=== PATIENT | female | born 1930 | race Caucasian/White ===

== ENCOUNTER 2016-10-20 14:05 | Inpatient (IN) | payer MEDICARE, OTHER ==
[~2016-10-20] VITALS: Ht 167.6 cm; Wt 60.2 kg
[2016-10-20] MEDS ORDERED: FUROSEMIDE 40 MG/4 ML VIAL (J1940) As Ordered ONE (14:18)
[2016-10-20] MEDS ORDERED: IPRATROPIUM 0.5MG/ALBUTEROL 2.5MG INH SOL UD 3ML (DUONEB)(J7620) As Ordered ONE (14:25)
[2016-10-20] MEDS ORDERED: ALBUTEROL SULFATE 2.5 MG/0.5 ML INH NEB SOLN As Ordered ONE (14:25)
--- NOTE | 2016-10-20 14:41 | REP ---
Clinical: Shortness of breath. Findings: Cardiomegaly. Diffuse increased interstitial markings with indistinct pulmonary vasculature and cephalization suggests pulmonary venous congestion and interstitial edema. No obvious effusion. No pneumothorax. Mediastinum and cardiac silhouette are within normal limits for portable technique. Skeletal structures demonstrate age-related degenerative changes. Impression: Findings suggest pulmonary venous congestion and interstitial edema. Signed by Darwin Hanson MD 10/20/2016 02:33 P
[2016-10-20 14:49] LABS: BASO % 0.4 % (0.0-1.0); EOS % 0.2 % (0.0-3.0); LARGE UNSTAINED CELL # 0.1 K/mm3 (0.0-0.4); LARGE UNSTAINED CELL % 1.3 % (0.0-4.0); LYMPH # 1.5 K/mm3 (1.5-4.5); LYMPH % 15.5 % (24.0-44.0); MEAN CORPUSCULAR HEMOGLOBIN 28.5 pg (27.0-33.0); MEAN CORPUSCULAR HGB CONC 31.1 g/dl (32.0-36.5); MEAN CORPUSCULAR VOLUME 91.7 fl (80.0-96.0); MONO # 0.3 K/mm3 (0.0-0.8); MONO % 3.1 % (0.0-5.0); NEUTROPHILS # 7.9 K/mm3 (1.8-7.7); NEUTROPHILS % 79.6 % (36.0-66.0); PLATELET COUNT, AUTOMATED 298 k/mm3 (150-450); WHITE BLOOD COUNT 9.9 K/mm3 (4.0-10.0)
[2016-10-20 15:23] LABS: CALCIUM LEVEL 8.3 MG/DL (8.8-10.2); CREATININE FOR GFR 1.76 MG/DL (0.55-1.02); GLOMERULAR FILTRATION RATE 29.1 (>32)
[2016-10-20 15:27] LABS: POTASSIUM SERUM 5.3 MEQ/L (3.5-5.1)
[2016-10-20] MEDS ORDERED: HumuLIN R (REGULAR) INSULIN (NovoLIN R) **100U/ML** PER UNIT As Ordered ONE (15:34)
[2016-10-20] MEDS ORDERED: METO50TA2 PO (16:14)
[2016-10-20] MEDS ORDERED: METF750T PO (16:14)
[2016-10-20] MEDS ORDERED: GLIP5TAB8 PO (16:14)
[2016-10-20] MEDS ORDERED: ZOCO40TA PO (16:14)
[2016-10-20] MEDS ORDERED: ONGL10TA3 PO (16:14)
[2016-10-20] MEDS ORDERED: ASPI325T PO (16:14)
[2016-10-20] MEDS ORDERED: ONDANSETRON 4MG/2ML VIAL (J2405) IV PRN (17:15)
[2016-10-20] MEDS ORDERED: IPRATROPIUM 0.5MG/ALBUTEROL 2.5MG INH SOL UD 3ML (DUONEB)(J7620) NEB PRN (17:15)
[2016-10-20] MEDS ORDERED: DEXTROSE 50% 50 ML SYRINGE IV PRN (17:15)
[2016-10-20] MEDS ORDERED: GLUCAGON FOR INJ 1 MG VIAL (J1610) SC PRN (17:15)
[2016-10-20] MEDS ORDERED: methylPREDNISolone INJ 125 MG/2 ML VIAL (J2930) IV SCH (17:15)
[2016-10-20] MEDS ORDERED: ACETAMINOPHEN TAB 650MG DOSE (2X325MG) PO PRN (17:15)
[2016-10-20] MEDS ORDERED: GLUCOSE 4 GM CHEW TABLET PO PRN (17:15)
[2016-10-20] MEDS: HumaLOG INSULIN (NovoLOG) PER UNIT SC SCH ×2 (17:30→21:08)
--- NOTE | 2016-10-20 18:13 | REP ---
Clinical: Acute trauma with chronic medical renal disease. Technique: Mehta scale evaluation of the kidneys using curved array transducer. Findings: The kidneys are essentially normal in contour size and echogenicity and reniform shape without hydronephrosis, nephrolithiasis, cystic or renal mass lesion. Right kidney measures 10.0 x 4.7 x 4.8 cm. Left kidney measures 8.8 x 3.5 x 3.5 cm. Bladder is incompletely distended and grossly normal by current evaluation. Small left pleural effusion noted. Impression: Chronic medical Renal disease. Small left pleural effusion. No renal trauma/injury appreciated. Signed by Darwin Hanson MD 10/20/2016 06:04 P
[2016-10-20 19:15] LABS: CALCIUM LEVEL 8.1 MG/DL (8.8-10.2); CREATININE FOR GFR 1.94 MG/DL (0.55-1.02); POTASSIUM SERUM 4.6 MEQ/L (3.5-5.1)
[2016-10-20 19:26] LABS: ALBUMIN 3.3 GM/DL (3.2-5.2); ALBUMIN/GLOBULIN RATIO 0.94 (1.00-1.93); ALKALINE PHOSPHATASE 157 U/L (45-117); ALT/SGPT 43 U/L (12-78); AST/SGOT 33 U/L (15-37); BILIRUBIN,DIRECT < 0.1 MG/DL (0.0-0.2); BILIRUBIN,TOTAL 0.3 MG/DL (0.2-1.0); TOTAL PROTEIN 6.8 GM/DL (6.4-8.2)
[2016-10-20 20:00] VITALS: BP 166/78
--- NOTE | 2016-10-20 20:18 | EDDOCDS ---
Nurse's Notes [facility] Name: Claudia Miranda Age: 86 yrs Sex: Female : 1930 Arrival Date: 10/20/2016 Time: 14:05 Bed 1 Private MD: Diagnosis: Hyperglycemia, unspecified;Acute combined systolic (congestive) and diastolic (congestive) heart failure;Hypoxemia Presentation: 10/20 14:06 Presenting complaint: EMS states: increasing SOB over past week 84% on RA, given duo jjr neb followed by albuterol, visiting from [place], FSBS 432. Adult Sepsis Screening: The patient does not have new or worsening altered mentation. Patient has a respiratory rate of greater than or equal to 22 (1 point). Systolic blood pressure is greater than 100. Patient has a qSOFA score of 1- Negative Sepsis Screen. Suicide/Homicide risk assessment- the patient denies having any suicidal and/or homicidal ideations and does not present with any other emotional, behavioral or mental health complaints. 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 Transition of care: patient was not received from another setting of care. 14:06 Acuity: FELIX Level 3 jjr 14:06 Method Of Arrival: Ambulance jjr 14:15 Acuity level changed due to complexity of care. jjr 14:15 Acuity: FELIX Level 2 jjr Triage Assessment: 14:13 General: Appears ill, Behavior is appropriate for age. Pain: Location: right posterior jjr aspect of neck. Respiratory: Onset: The symptoms/episode began/occurred gradually, Airway is patent Respiratory effort is even, labored, with retractions, shallow, Respiratory pattern is tachypnea. Historical: - Allergies: no known allergies; - Home Meds: 1. simvastatin 40 mg Oral tab 1 tab once daily 2. glipizide 5 mg Oral tab 1 tab 2 times per day 3. metoprolol tartrate 50 mg Oral tab 1 tab 2 times per day 4. Onglyza 2.5 mg oral tab 1 tab once daily 5. metformin 750 mg oral Tb24 bid - PMHx: Diabetes - NIDDM: controlled; Hypertension; Hypercholesterolemia; - PSHx: none; - Social history: Smoking status: Patient states former smoker of tobacco. No barriers to communication noted, The patient speaks fluent Slovak. - Family history: Not pertinent. - : The pt / caregiver states he / she is not on anticoagulants. Home medication list is obtained from pill bottles. - Exposure Risk Screening:: None identified. Screenin:37 Screening information is obtained from the patient. Fall risk: At risk due to age, The ck1 following interventions are performed due to a positive Fall Risk Screen: Fall Risk is added to Special Handling on the patient Summary Screen. A Fall Risk Bracelet was applied to the patient. Side Rails are placed in the up position. A Call Millan is given with instruction to call for help when getting out of bed. Fall Alert bracelet is placed on the patient. Assistance ADL's: requires no assistance with activities of daily living. Abuse/DV Screen: The patient / caregiver reports he/she is: not in a situation that causes fear, pain or injury. Nutritional screening: No deficits noted. Advance Directives: Currently, there is no health care proxy. home support is adequate. Assessment: 14:37 General: Appears distressed, Behavior is appropriate for age, cooperative. Pain: Denies ck1 pain. Neurological: Level of Consciousness is awake, alert, obeys commands, Oriented to person, place, time. Cardiovascular: Rhythm is sinus tachycardia Chest pain is denied. Respiratory: Respiratory effort is labored, Respiratory pattern is symmetrical, Breath sounds with crackles bilaterally. GI: No deficits noted. Derm: Skin is pink, warm & dry. Musculoskeletal: No deficits noted. 15:40 General: Appears in no apparent distress, Behavior is appropriate for age, cooperative. ck1 Pain: Denies pain. Neurological: Level of Consciousness is awake, alert, obeys commands, Oriented to person, place, time. Cardiovascular: Rhythm is sinus rhythm Chest pain is denied. Respiratory: Respiratory effort is labored, Respiratory pattern is regular, symmetrical. GI: No deficits noted. Derm: Skin is pink, warm & dry. Musculoskeletal: Circulation, motion, and sensation intact Range of motion intact in all extremities. 16:40 Reassessment: Patient appears in no apparent distress at this time. ck1 17:40 General: Appears in no apparent distress, comfortable, Behavior is appropriate for age, ck1 cooperative. Pain: Denies pain. Neurological: Level of Consciousness is awake, alert, obeys commands, Oriented to person, place, time. Cardiovascular: Rhythm is sinus rhythm. Respiratory: Respiratory effort is unlabored, Respiratory pattern is regular, symmetrical. GI: No deficits noted. Derm: Skin is pink, warm & dry. 18:28 Reassessment: Patient appears in no apparent distress at this time. Patient denies pain ck1 at this time. Patient states feeling better. Patient states symptoms have improved. 19:10 General: Appears in no apparent distress, comfortable, to be sleeping. Behavior is nn1 appropriate for age, cooperative. Respiratory: Airway is patent Respiratory effort is even, unlabored, Respiratory pattern is regular, symmetrical. Derm: Skin is pink, warm & dry. 20:04 General: Appears in no apparent distress, comfortable, Behavior is appropriate for age, nn1 cooperative. Pain: Denies pain. Neurological: Level of Consciousness is awake, alert, obeys commands, Oriented to person, place, time. Respiratory: Airway is patent Respiratory effort is even, unlabored, Respiratory pattern is regular. Derm: Skin is pink, warm & dry. 20:05 Respiratory: Breath sounds with crackles bilaterally. nn1 Vital Signs: 14:10 BP 221 / 108; Pulse 96; Resp 26; Temp 97.4; Pulse Ox 83% on R/A; Weight 64.86 kg (M); sew Height 5 ft. 6 in. (167.64 cm); Pain 0/10; 14:11 BP 221 / 108 (auto/); ck1 14:11 Pulse 101 MON; Pulse Ox 85% ; ck1 14:14 Resp 36; jjr 14:35 BP 204 / 100 (auto/); ck1 14:36 Pulse 105 MON; Pulse Ox 96% ; ck1 14:45 BP 181 / 84 (auto/); ck1 14:45 Pulse 93 MON; Pulse Ox 93% ; ck1 15:15 BP 180 / 88 (auto/); ck1 15:16 Pulse 93 MON; Pulse Ox 90% ; ck1 15:34 BP 223 / 99 (auto/); ck1 15:34 Pulse 93 MON; Pulse Ox 90% ; ck1 15:36 BP 148 / 70 (auto/); ck1 15:36 Pulse 93 MON; Pulse Ox 90% ; ck1 15:45 BP 155 / 72 (auto/); ck1 15:45 Pulse 93 MON; Pulse Ox 93% ; ck1 16:00 BP 156 / 70 (auto/); ck1 16:01 Pulse 90 MON; Pulse Ox 92% ; ck1 16:15 BP 153 / 64 (auto/); ck1 16:16 Pulse 89 MON; Pulse Ox 91% ; ck1 16:30 BP 142 / 64 (auto/); ck1 16:31 Pulse 88 MON; Pulse Ox 93% ; ck1 16:45 BP 142 / 93 (auto/); ck1 16:46 Pulse 89 MON; Pulse Ox 96% ; ck1 17:00 BP 154 / 72 (auto/); ck1 17:01 Pulse 85 MON; Pulse Ox 94% ; ck1 17:15 BP 134 / 74 (auto/); ck1 17:16 Pulse 86 MON; Pulse Ox 95% ; ck1 17:30 BP 143 / 71 (auto/); ck1 17:42 Pulse 89 MON; Pulse Ox 94% ; ck1 17:45 BP 157 / 68 (auto/); ck1 17:46 Pulse 87 MON; Pulse Ox 95% ; ck1 18:00 BP 146 / 78 (auto/); ck1 18:01 Pulse 85 MON; Pulse Ox 95% ; ck1 18:15 BP 160 / 85 (auto/); ck1 18:22 Pulse 90 MON; Pulse Ox 97% ; ck1 20:05 BP 145 / 81; Pulse 89; Resp 18; Temp 98.5(TE); Pulse Ox 95% on 4 lpm [place]; Pain 0/10; nn1 14:10 Body Mass Index 23.08 (64.86 kg, 167.64 cm) [facility] [place]: 14:10 Log In Time N/A - ambulance arrival. sew ED Course: 14:06 Patient visited by Judy Dixon, Brake Coupler Dinkey. deg 14:06 Senait Lombardo,RN is Primary Nurse. deg 14:06 Patient moved to Waiting deg 14:06 Patient moved to 1 deg 14:08 [facility]. ke 14:08 Triage Initiated jjr 14:09 Patient visited by Mike Meneses FNP. ke 14:09 Patient visited by Mike Meneses FNP. ke 14:13 Patient visited by Macy Leiva. sew 14:13 Pt greeted and oriented to ED. Patient advised of names of staff involved in care, sew location of call millan, wait times and NPO status. Accompanied by Family Member, Patient has correct armband on for positive identification. Placed in gown. Bed in low position. Call light in reach. Side rails up X2. Verbal reassurance given. Head of bed elevated. Assisted with dressing. Repositioned patient. site monitor on. Pulse ox on. NIBP on. 14:24 Patient visited by Nahum Feliciano. jml1 14:24 EKG done. (by ED staff). Reviewed by Mike MONTAGUE. jml1 14:28 B-Type Natiuretic Peptide Sent. ck1 14:28 Basic Metabolic Profile Sent. ck1 14:28 CBC with Diff Sent. ck1 14:28 Cardiac Injury Profile Sent. ck1 14:28 Troponin Sent. ck1 14:37 Patient visited by Senait Lombardo,ORAL. ck1 14:37 The patient / caregiver is instructed regarding the plan of care and ED course. ck1 14:37 BLOOD CULTURES Sent. ck1 14:37 -Blood Culture Sent. ck1 14:37 Inserted saline lock: 20 gauge in left forearm and blood collected. The patient ck1 tolerated the procedure well. 15:06 Patient visited by Mike Meneses FNP. ke 15:19 Chest, 1 View Returned. EDMS 15:27 Patient visited by Senait Lombardo,ORAL. ck1 15:28 No procedures done that require assistance. ck1 15:40 Patient visited by Senait Lombardo,ORAL. ck1 15:41 Patient visited by Senait Lombardo,ORAL. ck1 15:43 Patient name changed from Claudia\May\\S\Brege\S\ to Claudia\May\Genna\S\Brege. EDMS 15:46 [facility] Payment Agreement was scanned into [employer] and attached to record. gb 15:56 Surjit Biswas is Hospitalizing Provider. ke 17:27 Patient moved to Ultrasound am10 17:47 Patient moved to 1 am10 18:14 Patient visited by Mariajose Mason PCA. rs6 18:14 Diet: Patient given regular meal. Tolerated well. rs6 18:39 RENAL US Returned. EDMS 18:51 Primary Nurse role handed off by Senait Lombardo,RN ck1 20:05 O2 via nasal cannula \T\ 4L/min. nn1 Administered Medications: 14:23 Drug: Furosemide 40 mg [furosemide 10 mg/mL injection solution (4 mL)] Route: IVP; jjr Site: left forearm; 14:32 Drug: Albuterol 2.5 mg [albuterol sulfate 2.5 mg/0.5 mL solution for nebulization (0.5 js11 mL)] Route: Nebulizer; 14:32 Drug: Albuterol-Ipratropium 3 ml [ipratropium-albuterol 0.5 mg-3 mg(2.5 mg base)/3 mL js11 nebulization soln (3 mL)] Route: Inhalation; 15:40 Drug: Insulin Regular Human 10 units [insulin regular human 100 unit/mL injection ck1 solution (0.1 mL)] {Co-Signature: ttterry (Vale Pop RN).} Route: IVP; Site: left forearm; Point of Care Testing: Blood Glucose: 16:33 Blood Glucose: 344 mg/dL; ck1 17:40 Blood Glucose: 296 mg/dL; ck1 Ranges: RT: 14:32 Initial Med Neb Given as ordered Patient was instructed and evaluated on procedure js11 Patient tolerated procedure well without adverse effect. O2 via nasal cannula \T\ 4L/min. Respiratory: Breath sounds with rhonchi bilaterally. Order Results: Lab Order: B-Type Natiuretic Peptide; SPEC'M 10/20/16 14:25 Test: BRAIN NATRIURETIC PEPTIDE; Value: 773; Range: <100; Abnormal: Above high normal; Units: PG/ML; Status: F Lab Order: Basic Metabolic Profile; SPEC'M 10/20/16 14:25 Test: GLUCOSE, FASTING; Value: 460; Range: 83-110; Abnormal: Above upper panic limits; Units: MG/DL; Status: F Test: BLOOD UREA NITROGEN; Value: 29; Range: 7-18; Abnormal: Above high normal; Units: MG/DL; Status: F Test: CREATININE FOR GFR; Value: 1.76; Range: 0.55-1.02; Abnormal: Above high normal; Units: MG/DL; Status: F Test: GLOMERULAR FILTRATION RATE; Value: 29.1; Range: >32; Abnormal: Below low normal; Status: F Test: SODIUM LEVEL; Value: 134; Range: 136-145; Abnormal: Below low normal; Units: MEQ/L; Status: F Test: POTASSIUM SERUM; Value: 5.3; Range: 3.5-5.1; Abnormal: Above high normal; Units: MEQ/L; Status: F Test: CHLORIDE LEVEL; Value: 99; Range: 98-107; Units: MEQ/L; Status: F Test: CARBON DIOXIDE LEVEL; Value: 25; Range: 21-32; Units: MEQ/L; Status: F Test: ANION GAP; Value: 10; Range: 8-16; Units: MEQ/L; Status: F Test: CALCIUM LEVEL; Value: 8.3; Range: 8.8-10.2; Abnormal: Below low normal; Units: MG/DL; Status: F Test Note: ; Units are mL/min/1.73 m2 Chronic Kidney Disease Staging per NKF: Stage I & II GFR >=60 Normal to Mildly Decreased Stage III GFR 30-59 Moderately Decreased Stage IV GFR 15-29 Severely Decreased Stage V GFR <15 Very Little GFR Left ESRD GFR <15 on HEARING THERAPIST Lab Order: CBC with Diff; SPEC'M 10/20/16 14:25 Test: WHITE BLOOD COUNT; Value: 9.9; Range: 4.0-10.0; Units: K/mm3; Status: F Test: RED BLOOD COUNT; Value: 4.15; Range: 4.00-5.40; Units: M/mm3; Status: F Test: HEMOGLOBIN; Value: 11.8; Range: 12.0-16.0; Abnormal: Below low normal; Units: g/dl; Status: F Test: HEMATOCRIT; Value: 38.0; Range: 36.0-47.0; Units: %; Status: F Test: MEAN CORPUSCULAR VOLUME; Value: 91.7; Range: 80.0-96.0; Units: fl; Status: F Test: MEAN CORPUSCULAR HEMOGLOBIN; Value: 28.5; Range: 27.0-33.0; Units: pg; Status: F Test: MEAN CORPUSCULAR HGB CONC; Value: 31.1; Range: 32.0-36.5; Abnormal: Below low normal; Units: g/dl; Status: F Test: RED CELL DISTRIBUTION WIDTH; Value: 13.0; Range: 11.5-14.5; Units: %; Status: F Test: PLATELET COUNT, AUTOMATED; Value: 298; Range: 150-450; Units: k/mm3; Status: F Test: NEUTROPHILS %; Value: 79.6; Range: 36.0-66.0; Abnormal: Above high normal; Units: %; Status: F Test: LYMPH %; Value: 15.5; Range: 24.0-44.0; Abnormal: Below low normal; Units: %; Status: F Test: MONO %; Value: 3.1; Range: 0.0-5.0; Units: %; Status: F Test: EOS %; Value: 0.2; Range: 0.0-3.0; Units: %; Status: F Test: BASO %; Value: 0.4; Range: 0.0-1.0; Units: %; Status: F Test: LARGE UNSTAINED CELL %; Value: 1.3; Range: 0.0-4.0; Units: %; Status: F Test: NEUTROPHILS #; Value: 7.9; Range: 1.8-7.7; Abnormal: Above high normal; Units: K/mm3; Status: F Test: LYMPH #; Value: 1.5; Range: 1.5-4.5; Units: K/mm3; Status: F Test: MONO #; Value: 0.3; Range: 0.0-0.8; Units: K/mm3; Status: F Test: EOS #; Value: 0.0; Range: 0.0-0.50; Units: K/mm3; Status: F Test: BASO #; Value: 0.0; Range: 0.0-0.2; Units: K/mm3; Status: F Test: LARGE UNSTAINED CELL #; Value: 0.1; Range: 0.0-0.4; Units: K/mm3; Status: F Lab Order: Cardiac Injury Profile; SPEC'M 10/20/16 14:25 Test: CPK CREATINE PHOSPHOKINASE; Value: 38; Range: 26-192; Units: U/L; Status: F Test: CK-MB VALUE MASS; Value: 1.3; Range: 0.0-3.6; Units: NG/ML; Status: F Test: MB/CK RELATIVE INDEX; Value: 3.42; Range: < OR =4; Status: F Test Note: ; DIAGNOSIS CRITERIA MMB ng/ml Relative Index (RI) NON-AMI < or = 5 N/A MEHTA ZONE > 5 < or = 4 AMI > 5 > 4 Lab Order: Troponin; [facility] 10/20/16 14:25 Test: TROPONIN I; Value: 0.05; Range: < 0.10; Units: NG/ML; Status: F Test Note: ; Troponin I Reference Interval for Siemens RESAAS LOCI: 99th Percentile= 0.00-0.045 ng/ml Risk Stratification: <= 0.10 ng/ml Decreased Risk for Adverse Clinical Events. 0.10-1.50 ng/ml Increased Risk for Adverse Clinical Events. Evaluation of additional criterion and/or repeat testing in 2-6 hours is suggested to rule out myocardial damage. >= 1.50 ng/ml Indicative of Myocardial Injury. Lab Order: Fingerstick Blood Sugar; [facility] 10/20/16 16:31 Test: BEDSIDE GLUCOSE; Value: 344; Range: 83-110; Abnormal: Above high normal; Units: MG/DL; Status: F Lab Order: LACTIC ACID LEVEL, LACTATE; [facility] 10/20/16 18:44 Test: LACTIC ACID LEVEL, LACTATE; Value: 4.9; Range: 0.4-2.0; Abnormal: Above upper panic limits; Units: MMOL/L; Status: F Lab Order: C REACTIVE PROTEIN QUANTITATIV; [facility] 10/20/16 18:44 Test: C REACTIVE PROTEIN QUANTITATIV; Value: 8.79; Range: 0.00-0.30; Abnormal: Above high normal; Units: MG/DL; Status: F Lab Order: ERYTHROCYTE SEDIMENTATION RATE; [facility] 10/20/16 18:44 Test: ERYTHROCYTE SEDIMENTATION RATE; Value: 42; Range: 0-42; Units: mm/hr; Status: F Lab Order: MAGNESIUM LEVEL; [facility] 10/20/16 18:44 Test: MAGNESIUM LEVEL; Value: 2.0; Range: 1.8-2.4; Units: MG/DL; Status: F Lab Order: THYROID STIMULATING HORMONE; [facility] 10/20/16 18:44 Test: THYROID STIMULATING HORMONE; Value: 0.317; Range: 0.358-3.740; Abnormal: Below low normal; Units: uIU/ML; Status: F Lab Order: BASIC METABOLIC PROFILE; [facility] 10/20/16 18:44 Test: GLUCOSE, FASTING; Value: 335; Range: 83-110; Abnormal: Above high normal; Units: MG/DL; Status: F Test: BLOOD UREA NITROGEN; Value: 32; Range: 7-18; Abnormal: Above high normal; Units: MG/DL; Status: F Test: CREATININE FOR GFR; Value: 1.94; Range: 0.55-1.02; Abnormal: Above high normal; Units: MG/DL; Status: F Test: GLOMERULAR FILTRATION RATE; Value: 26.0; Range: >32; Abnormal: Below low normal; Status: F Test: SODIUM LEVEL; Value: 137; Range: 136-145; Units: MEQ/L; Status: F Test: POTASSIUM SERUM; Value: 4.6; Range: 3.5-5.1; Units: MEQ/L; Status: F Test: CHLORIDE LEVEL; Value: 99; Range: 98-107; Units: MEQ/L; Status: F Test: CARBON DIOXIDE LEVEL; Value: 24; Range: 21-32; Units: MEQ/L; Status: F Test: ANION GAP; Value: 14; Range: 8-16; Units: MEQ/L; Status: F Test: CALCIUM LEVEL; Value: 8.1; Range: 8.8-10.2; Abnormal: Below low normal; Units: MG/DL; Status: F Test Note: ; Units are mL/min/1.73 m2 Chronic Kidney Disease Staging per NKF: Stage I & II GFR >=60 Normal to Mildly Decreased Stage III GFR 30-59 Moderately Decreased Stage IV GFR 15-29 Severely Decreased Stage V GFR <15 Very Little GFR Left ESRD GFR <15 on HEARING THERAPIST Lab Order: HEMOGLOBIN A1C; [facility] 10/20/16 18:44 Test: HEMOGLOBIN A1c; Value: 6.5; Range: 4.5-6.2; Abnormal: Above high normal; Units: %; Status: F Test: ESTIMATED AVERAGE GLUCOSE; Value: 140; Range: 60-110; Abnormal: Above high normal; Units: MG/DL; Status: F Lab Order: CARDIAC MARKER PANEL; [facility] 10/20/16 18:44 Test: CPK CREATINE PHOSPHOKINASE; Value: 44; Range: 26-192; Units: U/L; Status: F Test: CK-MB VALUE MASS; Value: 1.7; Range: 0.0-3.6; Units: NG/ML; Status: F Test: MB/CK RELATIVE INDEX; Value: 3.86; Range: < OR =4; Status: F Test: TROPONIN I; Value: 0.06; Range: < 0.10; Units: NG/ML; Status: F Test Note: ; DIAGNOSIS CRITERIA MMB ng/ml Relative Index (RI) NON-AMI < or = 5 N/A MEHTA ZONE > 5 < or = 4 AMI > 5 > 4 Lab Order: Fingerstick Blood Sugar; [facility] 10/20/16 17:45 Test: BEDSIDE GLUCOSE; Value: 296; Range: 83-110; Abnormal: Above high normal; Units: MG/DL; Status: F Lab Order: LIVER PROFILE; [facility] 10/20/16 18:44 Test: AST/SGOT; Value: 33; Range: 15-37; Units: U/L; Status: F Test: ALT/SGPT; Value: 43; Range: 12-78; Units: U/L; Status: F Test: ALKALINE PHOSPHATASE; Value: 157; Range: 45-117; Abnormal: Above high normal; Units: U/L; Status: F Test: BILIRUBIN,TOTAL; Value: 0.3; Range: 0.2-1.0; Units: MG/DL; Status: F Test: BILIRUBIN,DIRECT; Value: < 0.1; Range: 0.0-0.2; Units: MG/DL; Status: F Test: TOTAL PROTEIN; Value: 6.8; Range: 6.4-8.2; Units: GM/DL; Status: F Test: ALBUMIN; Value: 3.3; Range: 3.2-5.2; Units: GM/DL; Status: F Test: ALBUMIN/GLOBULIN RATIO; Value: 0.94; Range: 1.00-1.93; Abnormal: Below low normal; Status: F Radiology Order: Chest, 1 View Test: Chest, 1 View REASON FOR EXAMINATION: Shortness of Breath; Clinical: Shortness of breath.; ; Findings:; Cardiomegaly. Diffuse increased interstitial markings with indistinct pulmonary; vasculature and cephalization suggests pulmonary venous congestion and; interstitial edema. No obvious effusion. No pneumothorax. Mediastinum and; cardiac silhouette are within normal limits for portable technique. Skeletal; structures demonstrate age-related degenerative changes.; ; Impression:; Findings suggest pulmonary venous congestion and interstitial edema.; ; ; Signed by; Darwin Hanson MD 10/20/2016 02:33 P; Radiology Order: RENAL US Test: RENAL US REASON FOR EXAMINATION: acute kidney injury, chronic kidney disease? ; Clinical: Acute trauma with chronic medical renal disease.; ; Technique: Mehta scale evaluation of the kidneys using curved array transducer.; ; Findings:; ; The kidneys are essentially normal in contour size and echogenicity and reniform; shape without hydronephrosis, nephrolithiasis, cystic or renal mass lesion.; Right kidney measures 10.0 x 4.7 x 4.8 cm. Left kidney measures 8.8 x 3.5 x 3.5; cm. Bladder is incompletely distended and grossly normal by current evaluation.; Small left pleural effusion noted.; ; ; ; Impression:; ; Chronic medical Renal disease.; ; Small left pleural effusion.; ; No renal trauma/injury appreciated.; ; ; Signed by; Darwin Hanson MD 10/20/2016 06:04 P; Outcome: 15:57 Decision to Hospitalize by Provider. ke 20:04 Discharge Assessment: Patient awake, alert and oriented x 3. No cognitive and/or nn1 functional deficits noted. Patient verbalized understanding of disposition instructions. 20:04 Discharge Assessment: patient administered narcotics - no. The following High Risk nn1 Discharge criteria are identified: None. Admitted to PCU accompanied by nurse, accompanied by tech, via stretcher, with oxygen, on monitor, with chart. Condition: stable. No special radiology studies were completed. Admission hand-off: Report Faxed Fax receipt verified by ORAL Nix . Property :Personal belongings accompany Pt. 20:18 Patient left the ED. nn1 Signatures: Dispatcher [employer] EDJudy Redd, Brake Coupler Dinkey Unit deg Romelia Morfin, Reg Reg Mike Zaragoza, TRANSPORT PILOT TRANSPORT PILOT Senait Brandon RN RN ck1 Fanny Graham am10 Samantha Guillen RN RN Yon Morton js11 Nahum Feliciano jml1 Macy Leiva, Mariajose, MILK DRIER MILK DRIER rs6 Ninoska Porter,RN RN nn1 Vale Pop RN ttb MTDD
--- NOTE | 2016-10-20 20:18 | EDDOCDS ---
Physician Documentation [facility] Name: Claudia Miranda Age: 86 yrs Sex: Female : 1930 Arrival Date: 10/20/2016 Time: 14:05 Bed 1 Private MD: Disposition: 10/20/16 15:57 Hospitalization ordered by Surjit Biswas for Inpatient Admission. Preliminary diagnosis are Hyperglycemia, unspecified, Acute combined systolic (congestive) and diastolic (congestive) heart failure, Hypoxemia. - Bed requested for PCU. - Status is Inpatient Admission. nn1 - Condition is Stable. - Problem is an ongoing problem. - Symptoms are unchanged. Historical: - Allergies: no known allergies; - Home Meds: 1. simvastatin 40 mg Oral tab 1 tab once daily 2. glipizide 5 mg Oral tab 1 tab 2 times per day 3. metoprolol tartrate 50 mg Oral tab 1 tab 2 times per day 4. Onglyza 2.5 mg oral tab 1 tab once daily 5. metformin 750 mg oral Tb24 bid - PMHx: Diabetes - NIDDM: controlled; Hypertension; Hypercholesterolemia; - PSHx: none; - Social history: Smoking status: Patient states former smoker of tobacco. No barriers to communication noted, The patient speaks fluent [place]. - Family history: Not pertinent. - : The pt / caregiver states he / she is not on anticoagulants. Home medication list is obtained from pill bottles. - Exposure Risk Screening:: None identified. Vital Signs: 10/20 14:10 BP 221 / 108; Pulse 96; Resp 26; Temp 97.4; Pulse Ox 83% on R/A; Weight 64.86 kg / sew 142.99 lbs (M); Height 5 ft. 6 in. (167.64 cm); Pain 0/10; 14:11 BP 221 / 108 (auto/); ck1 14:11 Pulse 101 MON; Pulse Ox 85% ; ck1 14:14 Resp 36; jjr 14:35 BP 204 / 100 (auto/); ck1 14:36 Pulse 105 MON; Pulse Ox 96% ; ck1 14:45 BP 181 / 84 (auto/); ck1 14:45 Pulse 93 MON; Pulse Ox 93% ; ck1 15:15 BP 180 / 88 (auto/); ck1 15:16 Pulse 93 MON; Pulse Ox 90% ; ck1 15:34 BP 223 / 99 (auto/); ck1 15:34 Pulse 93 MON; Pulse Ox 90% ; ck1 15:36 BP 148 / 70 (auto/); ck1 15:36 Pulse 93 MON; Pulse Ox 90% ; ck1 15:45 BP 155 / 72 (auto/); ck1 15:45 Pulse 93 MON; Pulse Ox 93% ; ck1 16:00 BP 156 / 70 (auto/); ck1 16:01 Pulse 90 MON; Pulse Ox 92% ; ck1 16:15 BP 153 / 64 (auto/); ck1 16:16 Pulse 89 MON; Pulse Ox 91% ; ck1 16:30 BP 142 / 64 (auto/); ck1 16:31 Pulse 88 MON; Pulse Ox 93% ; ck1 16:45 BP 142 / 93 (auto/); ck1 16:46 Pulse 89 MON; Pulse Ox 96% ; ck1 17:00 BP 154 / 72 (auto/); ck1 17:01 Pulse 85 MON; Pulse Ox 94% ; ck1 17:15 BP 134 / 74 (auto/); ck1 17:16 Pulse 86 MON; Pulse Ox 95% ; ck1 17:30 BP 143 / 71 (auto/); ck1 17:42 Pulse 89 MON; Pulse Ox 94% ; ck1 17:45 BP 157 / 68 (auto/); ck1 17:46 Pulse 87 MON; Pulse Ox 95% ; ck1 18:00 BP 146 / 78 (auto/); ck1 18:01 Pulse 85 MON; Pulse Ox 95% ; ck1 18:15 BP 160 / 85 (auto/); ck1 18:22 Pulse 90 MON; Pulse Ox 97% ; ck1 20:05 BP 145 / 81; Pulse 89; Resp 18; Temp 98.5(TE); Pulse Ox 95% on 4 lpm NC; Pain 0/10; nn1 14:10 Body Mass Index 23.08 (64.86 kg, 167.64 cm) sew MDM: 14:07 -Blood Culture (Adults Only), peripheral from different site, or from device/port/PICC sd1 etc. if present ordered. 14:07 Physical Laboratory Assistant/Pulse Ox/q 15 min VS ordered. sd1 14:07 IV Saline Lock ordered. sd1 14:07 Oxygen at 4L/Min NC or Home dosage ordered. sd1 14:07 Rhythm Strip to chart ordered. sd1 14:08 -Blood Culture Ordered. EDMS 14:08 B-Type Natiuretic Peptide Ordered. EDMS 14:08 Basic Metabolic Profile Ordered. EDMS 14:08 CBC with Diff Ordered. EDMS 14:08 Cardiac Injury Profile Ordered. EDMS 14:08 Troponin Ordered. EDMS 14:08 Chest, 1 View Ordered. EDMS 14:08 ECG WITH READING ER PHYS+CARDIAG ordered. EDMS 14:14 Albuterol 2.5 mg Nebulizer once ordered. ke 14:14 Albuterol-Ipratropium 3 ml Inhalation once ordered. ke 14:14 Call Respiratory ordered. ke 14:14 Furosemide 40 mg IVP once ordered. ke 14:20 BLOOD CULTURES Ordered. EDMS 14:28 Call Respiratory complete. ck1 14:28 -Blood Culture (Adults Only), peripheral from different site, or from device/port/PICC ck1 etc. if present complete. 15:29 B-Type Natiuretic Peptide Reviewed. ke 15:29 CBC with Diff Reviewed. ke 15:29 Chest, 1 View Reviewed. ke 15:30 Accucheck hourly ordered. ke 15:30 Insulin Regular Human 10 units IVP once ordered. ke 15:46 Financial registration complete. gb 15:46 [place] [place] was scanned into [employer] and attached to record. gb 15:49 Basic Metabolic Profile Reviewed. ke 15:49 Cardiac Injury Profile Reviewed. ke 15:49 Troponin Reviewed. ke 17:02 RENAL US Ordered. EDMS 17:03 ECHOCARD,DOPPLER/COLOR FLOW ordered. EDMS 17:03 URINALYSIS Ordered. EDMS 17:03 SODIUM,RANDOM URINE Ordered. EDMS 17:03 CHLORIDE,RANDOM URINE Ordered. EDMS 17:04 POTASSIUM,RANDOM URINE Ordered. EDMS 17:04 LACTIC ACID LEVEL, LACTATE Ordered. EDMS 17:04 C REACTIVE PROTEIN QUANTITATIV Ordered. EDMS 17:04 ERYTHROCYTE SEDIMENTATION RATE Ordered. EDMS 17:04 URINE STREP PNEUMONIAE ANTIGEN Ordered. EDMS 17:04 LEGIONELLA ANTIGEN URINE Ordered. EDMS 17:04 MAGNESIUM LEVEL Ordered. EDMS 17:04 THYROID STIMULATING HORMONE Ordered. EDMS 17:05 BASIC METABOLIC PROFILE Ordered. EDMS 17:05 HEMOGLOBIN A1C Ordered. EDMS 17:05 CARDIAC MARKER PANEL Ordered. EDMS 17:05 URINE CULTURE Ordered. EDMS 17:05 SPUTUM CULTURE AND GRAM STAIN Ordered. EDMS 17:05 INFLUENZA A&B RAPID ANTIGEN Ordered. EDMS 17:10 PHYSICAL THERAPY EVAL & TREAT ordered. EDMS 17:10 CONSISTENT CARBOHYDRATES ordered. EDMS 17:27 Admission / Observation Status ordered. EDMS 17:53 Fingerstick Blood Sugar Ordered. EDMS 18:52 LIVER PROFILE Ordered. EDMS 19:01 CREATININE,RANDOM URINE Ordered. EDMS 19:01 TOTAL PROTEIN,RANDOM URINE Ordered. EDMS 19:31 BRAIN NATIURETIC PEPTIDE Ordered. EDMS 19:31 CBC WITH DIFFERENTIAL Ordered. EDMS 19:31 CARDIAC RISK PROFILE Ordered. EDMS 19:31 CARDIAC MARKER PANEL Ordered. EDMS 19:31 IRON (FE) Ordered. EDMS 19:31 TOTAL IRON BINDING CAPACIT Ordered. EDMS 19:31 FERRITIN Ordered. EDMS 19:31 VITAMIN B12 LEVEL Ordered. EDMS 19:31 FOLATE Ordered. EDMS 20:13 LACTIC ACID LEVEL, LACTATE Ordered. EDMS Point of Care Testing: Blood Glucose: 16:33 Blood Glucose: 344 mg/dL; ck1 17:40 Blood Glucose: 296 mg/dL; ck1 Ranges: Administered Medications: 14:23 Drug: Furosemide 40 mg [furosemide 10 mg/mL injection solution (4 mL)] Route: IVP; jjr Site: left forearm; 14:32 Drug: Albuterol 2.5 mg [albuterol sulfate 2.5 mg/0.5 mL solution for nebulization (0.5 js11 mL)] Route: Nebulizer; 14:32 Drug: Albuterol-Ipratropium 3 ml [ipratropium-albuterol 0.5 mg-3 mg(2.5 mg base)/3 mL js11 nebulization soln (3 mL)] Route: Inhalation; 15:40 Drug: Insulin Regular Human 10 units [insulin regular human 100 unit/mL injection ck1 solution (0.1 mL)] {Co-Signature: ttb (Vale Pop RN).} Route: IVP; Site: left forearm; Signatures: Dispatcher [employer] Macy Berger MD MD sd1 Brie Vila RN RN Romelia Barron, Reg Reg Mike Zaragoza, BINDERY OPERATOR BINDERY OPERATOR Senait Brandon,RN RN ck1 Samantha Guillen RN RN jjNinoska Contreras,RN RN nn1 Yon Wooten js11 Vale Pop RN ttb The chart was reviewed and I authenticate all verbal orders and agree with the evaluation and treatment provided.Corrections: (The following items were deleted from the chart) 18:55 18:35 LIVER PROFILE ordered. EDMS EDMS 19:01 17:04 TOTAL PROTEIN,RANDOM URINE ordered. EDMS EDMS 19:01 17:04 CREATININE,RANDOM URINE ordered. EDMS EDMS Attachments: 15:46 [facility] [place] gb MTDD
[2016-10-20] MEDS ORDERED: LEVEMIR (INSULIN DETEMIR) 1 UNITS/0.01ML SC SCH (21:00)
[2016-10-20] MEDS: FUROSEMIDE 40 MG/4 ML VIAL (J1940) IV SCH (21:05)
[2016-10-20] MEDS: ASPIRIN 325 MG TAB PO SCH (21:06)
[2016-10-20] MEDS: DOCUSATE SODIUM 100 MG CAP PO SCH (21:06)
[2016-10-20] MEDS: SIMVASTATIN 40 MG TAB PO SCH (21:07)
[2016-10-20] MEDS: METOPROLOL TART 50 MG TAB PO SCH (21:07)
[2016-10-20] MEDS: HEPARIN SOD (PORCINE) 5000 UNITS/ML VIAL SC SCH (21:07)
[2016-10-21] VITALS (20 sets, daily range): BP systolic 88–150; BP diastolic 58–88
[2016-10-21] MEDS: FUROSEMIDE 40 MG/4 ML VIAL (J1940) IV SCH ×3 (00:59→18:46)
[2016-10-21 06:11] LABS: BASO % 0.4 % (0.0-1.0); EOS % 0.2 % (0.0-3.0); LARGE UNSTAINED CELL # 0.1 K/mm3 (0.0-0.4); LARGE UNSTAINED CELL % 1.5 % (0.0-4.0); LYMPH # 1.1 K/mm3 (1.5-4.5); LYMPH % 16.9 % (24.0-44.0); MEAN CORPUSCULAR HEMOGLOBIN 28.1 pg (27.0-33.0); MEAN CORPUSCULAR HGB CONC 32.5 g/dl (32.0-36.5); MONO # 0.3 K/mm3 (0.0-0.8); MONO % 4.5 % (0.0-5.0); NEUTROPHILS # 4.8 K/mm3 (1.8-7.7); NEUTROPHILS % 76.4 % (36.0-66.0); PLATELET COUNT, AUTOMATED 222 k/mm3 (150-450); RED CELL DISTRIBUTION WIDTH 12.9 % (11.5-14.5); WHITE BLOOD COUNT 6.3 K/mm3 (4.0-10.0)
[2016-10-21 06:37] LABS: MEAN CORPUSCULAR VOLUME 86.6 fl (80.0-96.0)
[2016-10-21] MEDS ORDERED: METOPROLOL 5 MG/5 ML VIAL IV STA ×3 (07:22→08:28)
[2016-10-21] MEDS: HumaLOG INSULIN (NovoLOG) PER UNIT SC SCH ×4 (07:30→21:00)
[2016-10-21] MEDS: IPRATROPIUM 0.5MG/ALBUTEROL 2.5MG INH SOL UD 3ML (DUONEB)(J7620) NEB SCH ×3 (07:41→15:31)
--- NOTE | 2016-10-21 07:53 | HPE ---
DATE OF ADMISSION: 10/20/2016 Time the patient was seen was this afternoon at 1700. The patient's primary care provider is Dr. Will Morales from [place]. CHIEF COMPLAINT: Shortness of breath. HISTORY OF PRESENT ILLNESS: An 86-year-old female with past medical history of noninsulin-dependent type 2 diabetes, hyperlipidemia, hypertension, unspecified infection of the heart 30 years ago, presented with severe shortness of breath, started a few days ago, however, much worse this morning; and in the emergency room, her oxygen was found to be saturating at 83%. The patient stated that she has been feeling weak and also having cough and congestion for about 1 week. She also noticed reduced urination, however, no change of urine color and no burning on urination. She also stated that she fell on the right side about a week ago and had right-sided hip pain for a few days. She also hit her face, however, she does not have any headache. Does not have any change of vision nor hearing or taste. Does not feel weaker on one side of her body compared to the other and no change of sensations. Her hip pain has resolved, also. Her last time going to visit her doctor was in June 2016. According to emergency room doctor, they have concern that the patient may not be taking her medications correctly at home. Otherwise, she also reports that the granddaughter has a cough and also daughter has a cough. Otherwise, the patient did not eat anything salty lately, and the patient also sleeps flat on her side at night, using one pillow. Otherwise, the patient denies any chest pain, any abdominal pain, any nausea, vomiting, diarrhea, constipation. The patient does admit to recent traveling to [place] and other [facility] in the past 3 months. ALLERGIES: No known drug allergies. PAST MEDICAL HISTORY: Includin. Noninsulin-dependent type 2 diabetes. 2. Hyperlipidemia. 3. Hypertension. 4. Unspecified infection in the heart 30 years ago. 5. Mastoiditis with drainage and scar at the right breast. SURGICAL HISTORY: None. 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 Has five children. Does not smoke, drink, or use any recreational drugs. FAMILY HISTORY: The patient's family had a heart disease. REVIEW OF SYSTEMS: General: The patient admits to recent traveling and also admits to daughter and granddaughter having cough lately. Admits to only 5 pounds of weight loss in 1 year. Denies any weight gain. Denies any fever. Admits to some chill. HEENT: Denies any changes with vision, smell, hearing, or taste. Denies any trouble swallowing. Admits to cough. Admits to congestion. Denies any sputum production. Cardiovascular: Denies any chest pain. Admits to trouble breathing. Pulmonary: Denies any pulmonary disease. Denies any chronic obstructive pulmonary disease (COPD). Denies any use of oxygen in the past. Admits to sleeping flat, only with one pillow at night. Gastrointestinal (GI): Denies any abdominal pains, any nausea, vomiting, diarrhea, constipation. Genitourinary (): Denies any dysuria, however, the patient admits to reduced urination recently. Denies any burning on urination. Musculoskeletal: Denies any pain anywhere. Hematology/oncology: Denies any easy bruising, any bleeding anywhere. Endocrine: The patient does have diabetes. Denies any heat or cold intolerance. Skin: Denies any rash, ulcerations. The patient does have an old scar at the right breast, which is rather large and, per the patient, it has not changed over at least the past 10 years. However, she has not visited a hvac service manager for a long time, also. Psychiatric: Denies any anxiety and depression. Neurologic: Denies any weakness on any side of her body or any change of sensations. PHYSICAL EXAMINATION: VITAL SIGNS: Blood pressure 148/70, pulse 93, respiration 36, temperature 97.4, oxygen was saturating at 90% on 4 liters of nasal cannula. Weight is 46.8 kg. Height is 167.6. GENERAL: The patient is a thin-looking elderly female who was alert, awake, and oriented times three. Does not appear to be in distress, resting comfortably in bed with head elevated at 60 degrees. HEENT: Normocephalic, atraumatic. Extraocular motor intact. Mucous moist. NECK: Supple. No neck lymphadenopathy. CARDIOVASCULAR: Regular rate and rhythm, S1, S2. Difficult to auscultate due to wheezings and rales. LUNGS: Diffuse wheezing, rales, and some rhonchi, especially the rhonchi in upper chest bilaterally. ABDOMEN: Positive bowel sounds, soft, nontender. No peritoneal signs. No ecchymosis. The patient does have a large scar at the right side of the chest next to the breast. However, her axilla and supraclavicular lymph nodes were negative on palpation. EXTREMITIES: No edema, clubbing, or cyanosis. SKIN: Warm and dry. NEUROLOGIC: Cranial nerves II-XII intact. No focal neurological deficits. LABORATORIES: WBC 9.9, hemoglobin 11.8, hematocrit 38, MCV was 91.7, platelet count was 298. Sodium 134, potassium 3.5, chloride 99, bicarbonate 25, BUN 29, creatinine 1.76, GFR 29.1, fasting glucose was 460, calcium 8.3, total CK 38, CK-MB 1.3, troponin 0.05, BNP was pending. Accu-Chek glucose was 344, 296. Urinalysis is pending. Urine electrolytes are pending. Magnesium level is pending. Urine culture is pending. Blood culture is pending. Echocardiogram of the heart is pending. Portable chest x-ray in the emergency room shows findings suggestive of pulmonary venous congestion and interstitial edema. The patient also had a renal ultrasound that shows chronic medical renal disease and also a small left pleural effusion. No renal trauma injury appreciated. ASSESSMENT AND PLAN: An 86-year-old female with past medical history of hypertension, hyperlipidemia, noninsulin-dependent type 2 diabetes, unspecified infection in the heart 30 years ago, presented with: 1. Severe shortness of breath and hypoxia with oxygen saturation initially of 83%, possibly secondary to decompensated heart failure. Brain natriuretic peptide (BNP) initially was 773. The patient denies any heart history in the past. Echocardiogram has been ordered, result pending. The patient did also receive Lasix 40 mg intravenous (IV) in the emergency room. However, the patient has not had urinated yet. She is currently on 4 liters of nasal cannula. Will titrate oxygen above 92% due to no chronic lung disease. At this point, will continue Lasix at 40 mg IV every 6 hours for a negative output of 2 liters in 24 hours. In addition, the patient does also have an elevated creatinine, and the patient denies any renal disease in the past. Therefore, renal ultrasound and urine electrolytes are ordered to rule out a possible fluid overload from renal failure. At this point, will hold any antibiotics due to no signs of pneumonia, and the patient does not have a white count, either. Will monitor the patient for any cardiac events causing the heart failure. Will rule out ACS and continue home aspirin and statin. Will obtain a lipid panel in the morning due to emergency room believes the patient does not take her medications at home. 2. Decompensated heart failure. Continue IV Lasix 40 mg every 6 hours with negative balance of 2 liters and continue to monitor intake and output. 3. Hypertensive urgency with blood pressure of 221/108. It has resolved spontaneously without blood pressure medication. Will continue to monitor. Continue home medication, metoprolol 50 mg by mouth twice a day. Hold if systolic blood pressure is less than 130 or if heart rate is less than 65. 4. Acute on chronic kidney disease with unknown baseline. Creatinine is 1.76. Renal ultrasound does show medical renal disease. Urine electrolytes have been ordered. Will follow. At this point, it is possibly secondary to cardiac renal syndrome. Will continue Lasix. Urinalysis and urine culture have been ordered. Will followup. 5. Tachycardia with heart rhythm of 101, possibly secondary to exacerbation and the shortness of breath. Will continue to monitor. 6. Hyperkalemia with potassium of 5.3. Will continue to monitor. Likely, will improve with Lasix. 7. Hyperglycemia with a glucose of 460. The patient was on metformin, onglyza, and also glyburide at home. Will hold by mouth medications and place the patient on Levemir 10 units nightly and insulin sliding scale and fingersticks. 8. Anemia with a hemoglobin of 11.8, MCV 91.7. Hemoccult has been ordered. Will wait for the result. At this point, will obtain iron panel and B-12 and folate for the morning and will continue to monitor. 9. Shortness of breath. Rule out ACS. Troponin was 0.05. Will trend troponin after 6 hours and will trend troponin again next day morning. 10. Unspecified infection in the heart 30 years ago. Continue home aspirin. However, it is unclear why the patient is on a high dose of aspirin of 325 mg nightly. Will obtain medical record from primary care provider. 11. Hyperlipidemia. Continue home statin. Will check lipid panel in the morning. 12. Deep venous thrombosis (DVT) prophylaxis with heparin 5000 units subcutaneously twice a day. DISPOSITION: The patient does have elevated BNP and a chest x-ray does show interstitial edema and also does have possible acute on chronic renal disease. At this point, will continue Lasix and continue strict intake and output and followup with urine electrolytes and echocardiogram. The patient has been discussed with attending doctor, Dr. Biswas. My preceptor for this patient encounter was Surjit Biswas MD. The preceptor was physically present in the building during the encounter and was fully available. As needed, all aspects of the patient interview, examination, medical decision making process, and medical care plan development were reviewed and approved by the preceptor. The preceptor is aware and concurs with the plan as stated in the body of this note and will attest to such by his/her cosignature.
[2016-10-21] MEDS: METOPROLOL TART 50 MG TAB PO SCH ×3 (08:01→21:43)
[2016-10-21] MEDS: HEPARIN SOD (PORCINE) 5000 UNITS/ML VIAL SC SCH (08:33)
[2016-10-21] MEDS: DOCUSATE SODIUM 100 MG CAP PO SCH ×2 (08:33→21:42)
[2016-10-21 08:42] LABS: CALCIUM LEVEL 8.5 MG/DL (8.8-10.2); CREATININE FOR GFR 1.74 MG/DL (0.55-1.02); GLOMERULAR FILTRATION RATE 29.5 (>32); POTASSIUM SERUM 3.8 MEQ/L (3.5-5.1); THYROXINE (T4) 8.9 UG/DL (4.5-12.0)
--- NOTE | 2016-10-21 10:18 | REP ---
Clinical: Rule out pneumonia. Comparison: None. Findings: Very subtle small scattered bilateral alveolar/ground-glass opacities are appreciated involving both the upper and lower lobes along with small bilateral pleural effusions (right greater than left). Mild pulmonary vascular prominence is also appreciated. No significant cardiomegaly is appreciated although mild atherosclerotic changes to the thoracic aorta and coronary arteries are identified. There is no pericardial effusion. Sub centimeter mediastinal lymph nodes are nonspecific. Surrounding musculoskeletal structures demonstrate age-related changes. Limited upper abdomen demonstrates benign hyperplastic appearance to the adrenal glands as well as chronic-appearing perinephric stranding. Impression: Small bilateral pleural effusions and subtle scattered alveolar/ground-glass opacities with mild pulmonary vascular prominence. Differential diagnosis includes early/resolving pneumonia as well as pulmonary vascular congestion. Signed by Darwin Hanson MD 10/21/2016 10:10 A
--- NOTE | 2016-10-21 10:20 | ECGEPIP ---
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
[2016-10-21] MEDS: cefTRIAXone SOD 1 GM in D5W MINI-BAG PLUS 50 ML IV SCH (10:46)
[2016-10-21] MEDS: AZITHROMYCIN 500 MG, VIAL MATE ADAPTER 1 EACH in D5W 250 ML IV SCH (11:23)
[2016-10-21] MEDS ORDERED: FUROSEMIDE 40 MG/4 ML VIAL (J1940) IV SCH (12:00)
[2016-10-21] MEDS ORDERED: HEPARIN SOD (PORCINE) 5000 UNITS/ML VIAL IV PRN (13:00)
[2016-10-21] MEDS ORDERED: HEPARIN SOD (PORCINE) 5000 UNITS/ML VIAL IV ONE (13:00)
[2016-10-21] MEDS: HEPARIN DRIP 25,000 UNITS in APPROPRIATE DILUENT 1 EA IV SCH (13:50)
--- NOTE | 2016-10-21 13:59 | ECHO ---
DATE OF PROCEDURE: 10/21/2016 REFERRING PHYSICIAN: PATIENT LOCATION: Room 3215 REASON FOR ECHOCARDIOGRAM: [place] fibrillation, shortness of breath, hypoxemia. 2D MEASUREMENT: IVS - 1.0 cm LV - 4.2 cm LVPW - 1.0 cm LA - 3.7 cm Aorta - 3.1 cm IVC - 2.0 cm DOPPLER MEASUREMENT: Peak velocity across the aortic valve 1.2 m/s Peak velocity across the LVOT - 1.0 m/s Mitral E - 0.98 Maximum tricuspid valve velocity 2.9 m/s 2D COMMENTS: 1. The left ventricular size, wall thickness and systolic function appeared to be normal with an estimated global left ventricular systolic function of 55 to 60%. 2. Normal left atrium. The right atrium and the right ventricle appear to be mildly enlarged. The right ventricular free wall may be hypokinetic in limited views. 3. The atrial septum appeared to be normal without evidence of defect or shunt. 4. Normal aortic root. 5. No pericardial effusion seen. 6. Minimally calcified aortic valve with normal leaflet excursion. Mildly calcified mitral annulus with normal anterior mitral valve leaflet motion. Normal tricuspid valve. The pulmonic valve and proximal pulmonary artery branches were not well visualized. 7. The inferior vena cava was borderline enlarged, central venous pressure mildly elevated. Doppler detects mild aortic regurgitation, mild mitral regurgitation and moderate tricuspid regurgitation. The calculated pulmonary artery systolic pressure varies between 40 to 50 mmHg. Assessment of the left ventricular diastolic function was limited in view of the underlying atrial fibrillation. IMPRESSION: 1. Low normal global left ventricular systolic function. May be related to the underling atrial fibrillation. Aortic valve sclerosis with mild aortic regurgitation. 2. Mitral annulus calcification with mild mitral regurgitation. 3. Moderate tricuspid regurgitation with moderate pulmonary hypertension and dilated right heart chambers. 4. There are features that may be related to increased central venous pressure. In view of the hypoxemia, and the dilated lateral chambers, we should consider pulmonary embolism and this will be discussed with the patient's hospitalist.
--- NOTE | 2016-10-21 15:08 | IPN ---
DATE: 10/21/2016 Patient seen and examined. Reported improved respirations. Continued to have a cough. Denies any fevers or chills. Reported only mild dyspnea. Denies any chest pain, pressure or discomfort. Denies palpitations even though the patient with atrial fibrillation with rapid ventricular response on telemetry. VITAL SIGNS: Temperature 96.1, pulse 122, respirations 18, blood pressure 128/72, pulse oximetry 96% on 2 liters nasal cannula. The patient is not on oxygen at home. LABORATORY DATA: WBC 6.3, hemoglobin and hematocrit 11.8/36.2, platelets 222. Sodium 139, potassium 3.8, chloride 99, bicarbonate 30, BUN 37, creatinine 1.7. Cardiac enzymes negative. PHYSICAL EXAMINATION: GENERAL: Patient alert and oriented times three, in no acute distress. HEENT: Normocephalic, atraumatic. PULMONARY: Bilateral diffuse but mild bilateral expiratory wheeze with random rhonchi, coarse to auscultation. CARDIAC: Tachycardia, irregular. S1, S2. ABDOMEN: Soft, nontender, nondistended. Positive bowel sounds. EXTREMITIES: No edema bilateral lower extremities. ASSESSMENT AND PLAN: This is an 86-year-old female patient with underlying medical history of hypertension, dyslipidemia, aqj-hpuxjve-rjydofeum type 2 diabetes, generally healthy, not on home oxygen, history of chronic obstructive pulmonary disease. The patient presented with dyspnea and cough with shortness of breath and hypoxia. Problems: 1. Hypoxia. Likely secondary to underlying community-acquired bacterial pneumonia, versus congestive heart failure, versus acute COPD exacerbation. Oxygen supplementation. Patient current on diuretics. Echocardiogram. Strict intake and output, daily weight, azithromycin, Rocephin. 2. Atrial fibrillation with rapid ventricular response. Given Lopressor and Cardizem. Lopressor dose has been increased. Cardiac enzyme appreciated. Thyroid panel appreciated. Cardiology, Dr. Orourke, has been consulted. Echo has been appreciated. As per Dr. Orourke, need to rule out pulmonary embolism (PE) given the right ventricular dilatation. 3. Rule out pulmonary embolism. Empirically started on a heparin drip. Followup PTT. Need to get a V/Q scan given patient with elevated kidney function. 4. Possible community-acquired bacterial pneumonia. Continue azithromycin and Rocephin. Followup cultures. C-reactive protein elevated and oxygen supplementation. 5. History of chronic obstructive pulmonary disease. Continue nebulizer treatment. Patient only has minimal wheeze. Continue oxygen supplementation. 6. Questionable decompensated heart failure. Lasix has been given. Strict intake and output, daily weight. Echo appreciated. Cardiology consulted. Cardiac enzymes appreciated. 7. Hypertension. Monitor blood pressure. Adjust medication as needed. Metoprolol has been increased. 8. Acute on chronic kidney disease. Unknown baseline. Monitor BUN and creatinine. Ultrasound appreciated. Followup urine output. 9. Fuv-ohywqge-zvryndzii type 2 diabetes. Insulin as per protocol. Follow fingersticks, adjust as needed. Levemir has been added. 10. Dyslipidemia. Continue statin. 11. Deep vein thrombosis (DVT) prophylaxis. Patient currently on a heparin drip for rule out pulmonary embolism (PE). DISPOSITION: Pending V/Q scan, pending cardiology followup, echocardiogram, clinical improvement, cultures. CT scan of the chest has been appreciated.
--- NOTE | 2016-10-21 15:09 | CR ---
DATE OF CONSULTATION: 10/21/2016 REASON FOR CONSULT: Atrial fibrillation. REFERRING PROVIDER: Dr. Lucie Pierre. HISTORY OF PRESENT ILLNESS: An [id number] woman with a history of diabetes mellitus, hypertension, hyperlipidemia, came into the hospital on 10/20/2016 with shortness of breath that was slowly getting worse. Upon arrival at the emergency room (ER), she was found to be hypoxemic with an oxygen saturation of 84% on room air and her vital sounds equaled a blood pressure of 221/108, with a pulse of 96, respirations 26, and her maximum temperature was 97.4 degrees Fahrenheit. Her weight was 64.8 kg. She was admitted to progressive care unit (PCU) for further management and monitoring and cardiology consult was called. EKG on admission revealed a left bundle-branch block pattern. She was admitted with a diagnosis of congestive heart failure. She had a chest CT done without any contrast that revealed a small bilateral pleural effusion and a scattered alveolar ground glass opacity with mild pulmonary vascular prominence. Diagnostic differential was resolving pneumonia, and there is some congestive heart failure. Earlier this morning, she developed atrial fibrillation with a rapid ventricular rate up to 160 beats per minute and cardiology consult was called. Prior to seeing her, case was discussed with the hospitalist and she was getting intravenous (IV) metoprolol as well as IV Cardizem. Her heart rate had slowed down to about 100-110 beats per minute, then increased back up to 130 beats per minute. When I saw Mrs. Claudia Miranda in the floor, she was in bed in no acute distress at rest. She denies any chest pain, but does complain of back pain, which she related to her position in the bed. She said that she feels sick in the stomach and does not feel well. She denies any dizziness or lightheadedness and there is no report of diaphoresis or syncope. She denies any fever or hemoptysis. She has no abdominal pain, diarrhea, melena, or hematemesis. She has no focal manifestation. She denies any palpitations. She has a past medical history, as mentioned above, positive for: 1. Hypertension. 2. Hyperlipidemia. 3. Diabetes mellitus. 4. Arthritis. There is no prior history of restrictive coronary artery disease, myocardial infarction, significant valvular heart disease, cardiomyopathy, cerebrovascular accident (CVA), sudden cardiac . Her laboratories revealed findings consistent with chronic kidney disease stage IV. PAST SURGICAL HISTORY: Is positive for surgery done on the right breast for an infection, otherwise, unremarkable. FAMILY HISTORY: Noncontributory. SOCIAL HISTORY: Patient stated that she has been living back and forth in [place], [place] [facility] and in [place], [place]. She does not smoke or abuse alcohol. She has five children. ALLERGIES: No known drug allergies. ADVANCE DIRECTIVES: Patient is a FULL CODE. PHYSICAL EXAMINATION: Patient is alert and awake, in no acute distress at rest. VITAL SIGNS: Blood pressure 128/78, pulse 122, respirations 20, maximum temperature 96.1 degrees Fahrenheit, with an oxygen saturation of 96% on 2 liters nasal cannula. EXAMINATION OF THE HEAD: Normocephalic, atraumatic. NECK: Supple, with extended jugular. LUNGS: Reveal decreased breath sounds at the bases, but no wheezing. HEART: On admission, revealed irregularly irregular heart sounds with gallops. Point of maximum impulse (PMI) is not displaced, There is no rub. I could not appreciate any murmurs. ABDOMEN: Soft and nontender. Bowel sounds are active. EXTREMITIES: No pedal edema. NEUROLOGICAL: Grossly is negative for focal deficits. LABORATORIES: CBC done today revealed a WBC 6.3, hemoglobin 11.8, hematocrit 36.2, platelets 228,000. On admission, CBC revealed a WBC 9.9, hemoglobin 11.8, hematocrit 38.0, platelets 298,000. BMP done today, 10/21/2016, revealed sodium 139, potassium 3.8, chloride 99, CO2 30, BUN 37, creatinine 1.74, GFR 29.5, fasting glucose 130, calcium 8.5. Serum magnesium 2.0. Serum brain natriuretic peptide (BNP) 600. On admission, serum brain natriuretic peptide (BNP) was 773. First serum troponin was 0.05, then increased to 0.06, and the third one is 0.10. C-reactive protein (CRP) is 11.9. A lipid profile was done and it revealed a cholesterol level of 146, LDL 53, HDL 70, and triglycerides 113. Thyroid function tests revealed a TSH of 0.42 and a Free T4 of 8.9. BMP on admission revealed a sodium of 137, potassium 4.6, chloride 94, CO2 24, BUN 32, creatinine 1.94, GFR 26.0, fasting glucose 335, with a calcium of 8.1. Liver enzymes on admission, 10/20/2016, reveal a total bilirubin 0.3, AST 33, ALT 43, alkaline phosphatase 157, total protein 6.8, albumin 3.3. Lactic acid on admission was 4.9, and today is 1.2. Urinalysis is positive for glucose and +1 blood, and it was also positive for protein. Chest x-ray on admission was reviewed and revealed increased interstitial markings, but no cardiomegaly and no pleural effusion. There is no tortuous aorta. Ultrasound of the kidneys reveal a chronic medical renal disease and incidentally, a small left pleural effusion was noted. CT of the chest without contrast revealed a small bilateral pleural effusion and alveolar/ground glass appearance associated with mild pulmonary vascular prominence. EKG done in the ER yesterday, 10/20/2016 at 14, 18, 43, revealed normal sinus rhythm at 93 beats per minute, left bundle-branch block, associated with left ventricular abnormalities and nonspecific ST-T abnormalities, as well as premature atrial contractions (PACs)/premature ventricular contractions (PVCs) also noted. Interestingly, telemetry and second EKG revealed no left bundle-branch block. Yesterday, telemetry revealed normal sinus rhythm with isolated PVCs and today's telemetry revealed atrial fibrillation with isolated PVCs versus aberrant beats and no specific ST-T abnormalities. An echocardiogram done this morning, 10/21/2016, at 7:21:08, revealed atrial fibrillation with a rapid ventricular rate at 147 beats per minute, now complex QRS, isolated PVS and ST-T abnormalities that may be related to ischemia. IMPRESSION: 1. Atrial fibrillation, newly diagnosed in this 86-year-old woman with history of hypertension, hyperlipidemia and diabetes mellitus, chronic kidney disease. She had an echocardiogram done today that revealed below normal global left ventricular systolic function, but with mildly dilated right heart chambers and, in view of her history, she does have a history of traveling from [place] back and forth to [place], pulmonary embolism should be considered, and case was discussed with the hospitalist, and she will be started on IV heparin. In view of the underlying kidney function, we will not proceed with a CT angiogram of the lungs, but with a ventilation/perfusion (V/Q) scan. Fourth set of serum troponin is pending. In the meantime, she will continue her current medications, with the aspirin, the beta-niki, and she is also on a statin. Her blood pressure is now under control. 2. Her EKG is abnormal and the findings of intermediate left bundle-bundle branch block, even though it happened, when it happened it was slower. That is unusual. We will need to consider underlying ischemia/coronary artery disease. I will monitor troponin level with you. In the meantime, she is covered with antibiotic therapy, and she is being started on IV heparin. She is also on a beta-niki. It was a pleasure to participate in the care of Mrs. Claudia Miranda. This is a very interesting case. I will continue to monitor along with you while in the hospital. Please do not hesitate to call with any questions.
[2016-10-21] MEDS ORDERED: AMIODARONE HCL 150 MG in APPROPRIATE DILUENT 1 EA IV STA ×2 (18:35→21:19)
[2016-10-21] MEDS: ASPIRIN 325 MG TAB PO SCH (21:42)
[2016-10-21] MEDS: SIMVASTATIN 40 MG TAB PO SCH (21:43)
[2016-10-21] MEDS: LEVEMIR (INSULIN DETEMIR) 1 UNITS/0.01ML SC SCH (21:48)
--- NOTE | 2016-10-21 22:13 | ECGEPIP ---
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
[2016-10-22 04:21] VITALS: BP 132/87
[2016-10-22 04:25] LABS: BASO # 0.1 K/mm3 (0.0-0.2); BASO % 1.3 % (0.0-1.0); EOS # 0.1 K/mm3 (0.0-0.50); EOS % 1.6 % (0.0-3.0); LARGE UNSTAINED CELL # 0.1 K/mm3 (0.0-0.4); LARGE UNSTAINED CELL % 1.4 % (0.0-4.0); LYMPH # 1.3 K/mm3 (1.5-4.5); LYMPH % 17.9 % (24.0-44.0); MEAN CORPUSCULAR HEMOGLOBIN 28.3 pg (27.0-33.0); MEAN CORPUSCULAR HGB CONC 33.1 g/dl (32.0-36.5); MEAN CORPUSCULAR VOLUME 85.4 fl (80.0-96.0); MONO # 0.2 K/mm3 (0.0-0.8); MONO % 3.6 % (0.0-5.0); NEUTROPHILS # 4.9 K/mm3 (1.8-7.7); NEUTROPHILS % 74.3 % (36.0-66.0); PLATELET COUNT, AUTOMATED 241 k/mm3 (150-450); RED CELL DISTRIBUTION WIDTH 13.6 % (11.5-14.5); WHITE BLOOD COUNT 6.6 K/mm3 (4.0-10.0)
[2016-10-22] MEDS ORDERED: DIGOXIN INJ 0.5 MG/2 ML AMP (J1160) IV ONE ×2 (04:45→18:15)
[2016-10-22 04:46] LABS: CREATININE FOR GFR 1.74 MG/DL (0.55-1.02); GLOMERULAR FILTRATION RATE 29.5 (>32); MAGNESIUM LEVEL 1.9 MG/DL (1.8-2.4); POTASSIUM SERUM 3.5 MEQ/L (3.5-5.1)
[2016-10-22] MEDS: FUROSEMIDE 40 MG/4 ML VIAL (J1940) IV SCH ×4 (04:58→16:24)
[2016-10-22] MEDS ORDERED: POTASSIUM CHLORIDE 10 MEQ SR TABLET PO ONE ×2 (07:15→08:15)
[2016-10-22] MEDS: IPRATROPIUM 0.5MG/ALBUTEROL 2.5MG INH SOL UD 3ML (DUONEB)(J7620) NEB SCH ×3 (07:42→15:15)
[2016-10-22 08:00] VITALS: BP 129/77
[2016-10-22] MEDS: HumaLOG INSULIN (NovoLOG) PER UNIT SC SCH ×4 (08:07→20:14)
[2016-10-22] MEDS: cefTRIAXone SOD 1 GM in D5W MINI-BAG PLUS 50 ML IV SCH (08:08)
[2016-10-22] MEDS: DOCUSATE SODIUM 100 MG CAP PO SCH ×2 (08:09→20:14)
[2016-10-22] MEDS: METOPROLOL TART 50 MG TAB PO SCH ×3 (08:09→20:14)
[2016-10-22] MEDS: AZITHROMYCIN 500 MG, VIAL MATE ADAPTER 1 EACH in D5W 250 ML IV SCH (09:50)
[2016-10-22 10:39] LABS: FOLATE 12.4 NG/ML (>5.4)
[2016-10-22 12:00] VITALS: BP 138/68
--- NOTE | 2016-10-22 14:08 | IPN ---
DATE: 10/22/2016 Time patient was seen was this morning at 9 a.m. Patient has been seen and examined at bedside. No acute events overnight. Patient denies any chest pain, trouble breathing, abdominal pains, nausea, vomiting, diarrhea, constipation, or any problem with urination. Denies any other current new complaints. PHYSICAL EXAMINATION: VITAL SIGNS: Temperature 96.2, pulse 128, a recheck at 12 noon was 67, respirations 18, blood pressure 129/77, oxygen saturating at 97% on 2 liters of nasal cannula. When I saw the patient, patient was on room air. GENERAL: Patient is an elderly female who is alert, awake, oriented times three , does not appear to be in distress, resting comfortably in bed with head elevated at 60 degrees. HEENT: Normocephalic, atraumatic. Extraocular motors intact. Mucous moist. Neck supple. No neck lymphadenopathy. CARDIOVASCULAR: Irregularly irregular. S1, S2. 2/6 systolic heart murmur. LUNGS: Clear to auscultation bilaterally. No wheezing, rales, or rhonchi. ABDOMEN: Positive bowel sounds. Soft, nontender. No peritoneal signs. No ecchymosis. EXTREMITIES: No edema, clubbing, or cyanosis. SKIN: Warm and dry. NEUROLOGIC: Cranial nerves II-XII intact. No focal neurological deficit. LABORATORY DATA: WBC 6.6, hemoglobin 11.8, hematocrit 35.6, with a platelet count of 241. Sodium 136, potassium 3.5, chloride 94, bicarbonate 30, BUN 40, creatinine 1.74, GFR 29.5, with a fasting glucose of 219, calcium 8, magnesium 1.9, CRP was elevated at 10.0, and BNP is still elevated at 1020. Patient's last cardiac marker was CK 75, CK-MB 2.2, troponin 0.09, trending down from the previous cardiac markers, and patient's hemoglobin A1c from a few days ago was measured at 6.5. Accu-Chek glucose was 135, 161, 241, 286. Patient's urine Legionella, Streptococcus pneumoniae are pending. Patient's sputum gram stain and culture shows a few gram-positive rods and moderate gram-positive cocci in pairs, chains, and clusters. 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 ASSESSMENT AND PLAN: 86-year-old female with past medical history of hypertension, dyslipidemia, type 2 diabetes, not on home oxygen, possible history of chronic obstructive pulmonary disease (COPD), presented with dyspnea, cough, shortness of breath, and hypoxia. 1. Hypoxia, likely secondary to underlying community-acquired pneumonia versus pulmonary edema from congestive heart failure (CHF) versus pulmonary embolism. Due to patient's acute on chronic renal failure, patient could not have a CT with contrast, therefore a VQ scan has been ordered for tomorrow. Will followup with the result. Echocardiogram does show stranding of the right ventricles. Dr. Orourke from cardiology has been consulted and helping to manage atrial fibrillation, we appreciate his help. At this time, will continue azithromycin and Rocephin. Will followup with sputum cultures. 2. Atrial fibrillation with rapid ventricular response (RVR). Cardiology has been consulted, we appreciate Dr. Orourke's help. Patient was initially put on Lopressor, Cardizem, and then patient also received amiodarone and digoxin. Currently, she is on metoprolol tartrate 50 mg by mouth three times a day, and her ventricular rate at 12 noon was 67. Will continue to monitor patient and continue to follow cardiology's recommendations. 3. Possible pulmonary embolism. Patient has been started on heparin drip empirically. Followup with partial thromboplastin time (PTT). VQ scan has been ordered, will be done tomorrow, due to elevated creatinine, will continue to monitor. 4. Possible community-acquired pneumonia shown on CT of the chest. Continue azithromycin and Rocephin and continue to follow cultures. C-reactive protein (CRP) does appear to be elevated. Will continue oxygen supplementation and titrate oxygen saturation above 92%. 5. Possible history of chronic obstructive pulmonary disease (COPD). Continue nebulizer treatment. Patient did have minimal wheezing which has resolved today. Will continue to monitor. 6. Questionable decompensated heart failure. Will continue Lasix and strict intake and output and continue to monitor patient. Patient did have mildly elevated cardiac enzymes initially. 7. Hypertension. Continue metoprolol. 8. Acute on chronic kidney disease with unknown baseline. Renal ultrasound does show medical renal disease. Continue to follow urine output. 9. Dbt-eeabqro-zowpullxp type 2 diabetes. Continue insulin per protocol. Patient's hemoglobin A1c was 6.5. Continue Levemir. 10. Dyslipidemia. Continue statin. 11. Deep venous thrombosis (DVT) prophylaxis. On heparin drip to rule out pulmonary embolus (PE). DISPOSITION: VQ scan has been ordered, will be done tomorrow, will followup. Patient's heart rate has improved. Will continue to follow cardiology's recommendations, we appreciate Dr. Orourke's help. Patient has been discussed with attending doctor, Dr. Pierre. My preceptor for this patient encounter was Dr. Lucie Pierre. The preceptor was physically present in the building during the encounter and was fully available. As needed, all aspects of the patient interview, examination, medical decision making process, and medical care plan development were reviewed and approved by the preceptor. The preceptor is aware and concurs with the plan as stated in the body of this note and will attest to such by his cosignature. I have both independently examined this patient as well as reviewed the note. I have discussed in detail with the resident the findings and plan of treatment as documented in the residents note. I will continue to follow the patient and offer further guidance to the patients care as necessary during this hospital stay. Lucie GAXIOLA
[2016-10-22 16:00] VITALS: BP 117/62
[2016-10-22] MEDS: HEPARIN DRIP 25,000 UNITS in APPROPRIATE DILUENT 1 EA IV SCH (16:56)
[2016-10-22] MEDS ORDERED: AMIODARONE HCL 150 MG in APPROPRIATE DILUENT 1 EA IV ONE (18:30)
--- NOTE | 2016-10-22 19:22 | IPN ---
DATE: 10/22/2016 SUBJECTIVE: Mrs. Claudia Miranda was seen earlier this morning, she was supine in bed in no acute distress. Her shortness of breath has improved significantly, and she is feeling slightly stronger. Her son was at bedside, as well as her [id number]. There is no report of bleeding. She continues to be in atrial fibrillation, and last night she had received two doses of amiodarone 150 mg intravenous (IV), and one dose of 0.25 mg IV digoxin. The heart rate has improved, but she continues to be mildly tachycardic, and at this present time, she runs around about 110-120 beats per minute. There is no report of bleeding. She was found to have findings that may be related to pulmonary embolism and she was started yesterday on IV heparin. The plan is to proceed with a ventilation/perfusion (V/Q) scan on 10/23/2016. She has a cough, but no hemoptysis. There is no report of fever or chills. There is no nausea, vomiting, diarrhea, melena, or hematemesis. She was having back pain yesterday but none today. She was markedly hypoxemic on presentation, but her oxygen saturation has improved. OBJECTIVE: GENERAL: On physical examination, the patient is alert and oriented, in no acute distress at rest. VITAL SIGNS: Her vital signs when I saw her earlier today revealed a blood pressure of 138/68 with a pulse of 120, respirations 18, and her maximum temperature is 97.4 degrees Fahrenheit, with an oxygen saturation of 95% on two liters nasal cannula. HEENT: Atraumatic. NECK: Supple with extended jugular. LUNGS: Did not reveal any wheezing. There may be minimal crackles at the bases. HEART: Examination revealed irregularly irregular heart sounds without gallops. The point of maximum impulse (PMI) is not displaced. There is no rub. ABDOMEN: Soft and nontender. EXTREMITIES: Reveal no pitting edema. NEUROLOGIC: Grossly is negative for focal deficit. LABORATORY DATA: CBC done today, 10/22/2016, reveals a WBC of 6.6, hemoglobin 11.8, hematocrit 35.6, and platelets 241,000. BMP revealed a sodium of 136, potassium 3.5, chloride 94, CO2 30, BUN 40, creatinine 1.74, GFR 29.5, and fasting glucose 219 with a calcium of 8.0. Serum magnesium is 1.9. Serum C-reactive protein is 10.0 from 11.9 on 10/21/2016. Serum BNP is 1090. Telemetry revealed atrial fibrillation with rapid ventricular rate and isolated PVCs, nonspecific ST-T abnormalities. ASSESSMENT: 1. An 86-year-old woman with shortness of breath and hypoxemia on admission, as well as uncontrolled hypertension, was seen yesterday because of paroxysmal atrial fibrillation, and she was found to have on her echocardiogram findings that may be related to pulmonary embolism. Her left ventricular systolic function is normal. The patient was started on IV heparin and the imaging plan is to proceed with a V/Q scan on 10/23/2016. A spiral CT of the chest was not done because of underlying renal function. We will continue the IV heparin and this was discussed earlier today with her hospitalist, and also discussed with her son present in the room. She also might benefit from Doppler of the lower extremities. 2. Probable pneumonia, and this is being addressed, on IV antibiotics. 3. Probable congestive heart failure, mild, and related to left ventricular diastolic dysfunction. 4. Atrial fibrillation, newly diagnosed with rapid ventricular rate that improves in hospitalization. We will continue with the beta niki. If she remains the same tomorrow, she might benefit from small dose of short-acting calcium channel niki with Cardizem. She is currently on IV heparin, and she will need chronic anticoagulation therapy. 5. Hypertension, now under control, and she will continue current medications. 6. History of hyperlipidemia, on a statin. 7. History of diabetes mellitus, being addressed. It was a pleasure to participate in the care of Mrs. Claudia Miranda for her underlying cardiac condition. I will continue to monitor along with you while in the hospital, and upon discharge, she will be seen as an outpatient. Tomorrow, she will be seen by Dr. Felipe.
[2016-10-22 19:36] VITALS: BP 144/79
[2016-10-22] MEDS: LEVEMIR (INSULIN DETEMIR) 1 UNITS/0.01ML SC SCH (20:14)
[2016-10-22] MEDS: ASPIRIN 81 MG CHEW TABLET PO SCH (20:15)
[2016-10-22] MEDS: SIMVASTATIN 40 MG TAB PO SCH (20:15)
--- NOTE | 2016-10-22 21:18 | EDDOCDS ---
Nurse's Notes [facility] Name: Claudia Miranda Age: 86 yrs Sex: Female : 1930 Arrival Date: 10/20/2016 Time: 14:05 Bed 1 Private MD: Diagnosis: Hyperglycemia, unspecified;Acute combined systolic (congestive) and diastolic (congestive) heart failure;Hypoxemia Presentation: 10/20 14:06 Presenting complaint: EMS states: increasing SOB over past week 84% on RA, given duo jjr neb followed by albuterol, visiting from [place], FSBS 432. Adult Sepsis Screening: The patient does not have new or worsening altered mentation. Patient has a respiratory rate of greater than or equal to 22 (1 point). Systolic blood pressure is greater than 100. Patient has a qSOFA score of 1- Negative Sepsis Screen. Suicide/Homicide risk assessment- the patient denies having any suicidal and/or homicidal ideations and does not present with any other emotional, behavioral or mental health complaints. Status: Patient is not a vending machine servicer or dependent. Transition of care: patient was not received from another setting of care. 14:06 Acuity: FELIX Level 3 jjr 14:06 Method Of Arrival: Ambulance jjr 14:15 Acuity level changed due to complexity of care. jjr 14:15 Acuity: FELIX Level 2 jjr Triage Assessment: 14:13 General: Appears ill, Behavior is appropriate for age. Pain: Location: right posterior jjr aspect of neck. Respiratory: Onset: The symptoms/episode began/occurred gradually, Airway is patent Respiratory effort is even, labored, with retractions, shallow, Respiratory pattern is tachypnea. Historical: - Allergies: no known allergies; - Home Meds: 1. simvastatin 40 mg Oral tab 1 tab once daily 2. glipizide 5 mg Oral tab 1 tab 2 times per day 3. metoprolol tartrate 50 mg Oral tab 1 tab 2 times per day 4. Onglyza 2.5 mg oral tab 1 tab once daily 5. metformin 750 mg oral Tb24 bid - PMHx: Diabetes - NIDDM: controlled; Hypertension; Hypercholesterolemia; - PSHx: none; - Social history: Smoking status: Patient states former smoker of tobacco. No barriers to communication noted, The patient speaks fluent Albanian. - Family history: Not pertinent. - : The pt / caregiver states he / she is not on anticoagulants. Home medication list is obtained from pill bottles. - Exposure Risk Screening:: None identified. Screenin:37 Screening information is obtained from the patient. Fall risk: At risk due to age, The ck1 following interventions are performed due to a positive Fall Risk Screen: Fall Risk is added to Special Handling on the patient Summary Screen. A Fall Risk Bracelet was applied to the patient. Side Rails are placed in the up position. A Call Millan is given with instruction to call for help when getting out of bed. Fall Alert bracelet is placed on the patient. Assistance ADL's: requires no assistance with activities of daily living. Abuse/DV Screen: The patient / caregiver reports he/she is: not in a situation that causes fear, pain or injury. Nutritional screening: No deficits noted. Advance Directives: Currently, there is no health care proxy. home support is adequate. Assessment: 14:37 General: Appears distressed, Behavior is appropriate for age, cooperative. Pain: Denies ck1 pain. Neurological: Level of Consciousness is awake, alert, obeys commands, Oriented to person, place, time. Cardiovascular: Rhythm is sinus tachycardia Chest pain is denied. Respiratory: Respiratory effort is labored, Respiratory pattern is symmetrical, Breath sounds with crackles bilaterally. GI: No deficits noted. Derm: Skin is pink, warm & dry. Musculoskeletal: No deficits noted. 15:40 General: Appears in no apparent distress, Behavior is appropriate for age, cooperative. ck1 Pain: Denies pain. Neurological: Level of Consciousness is awake, alert, obeys commands, Oriented to person, place, time. Cardiovascular: Rhythm is sinus rhythm Chest pain is denied. Respiratory: Respiratory effort is labored, Respiratory pattern is regular, symmetrical. GI: No deficits noted. Derm: Skin is pink, warm & dry. Musculoskeletal: Circulation, motion, and sensation intact Range of motion intact in all extremities. 16:40 Reassessment: Patient appears in no apparent distress at this time. ck1 17:40 General: Appears in no apparent distress, comfortable, Behavior is appropriate for age, ck1 cooperative. Pain: Denies pain. Neurological: Level of Consciousness is awake, alert, obeys commands, Oriented to person, place, time. Cardiovascular: Rhythm is sinus rhythm. Respiratory: Respiratory effort is unlabored, Respiratory pattern is regular, symmetrical. GI: No deficits noted. Derm: Skin is pink, warm & dry. 18:28 Reassessment: Patient appears in no apparent distress at this time. Patient denies pain ck1 at this time. Patient states feeling better. Patient states symptoms have improved. 19:10 General: Appears in no apparent distress, comfortable, to be sleeping. Behavior is nn1 appropriate for age, cooperative. Respiratory: Airway is patent Respiratory effort is even, unlabored, Respiratory pattern is regular, symmetrical. Derm: Skin is pink, warm & dry. 20:04 General: Appears in no apparent distress, comfortable, Behavior is appropriate for age, nn1 cooperative. Pain: Denies pain. Neurological: Level of Consciousness is awake, alert, obeys commands, Oriented to person, place, time. Respiratory: Airway is patent Respiratory effort is even, unlabored, Respiratory pattern is regular. Derm: Skin is pink, warm & dry. 20:05 Respiratory: Breath sounds with crackles bilaterally. nn1 Vital Signs: 14:10 BP 221 / 108; Pulse 96; Resp 26; Temp 97.4; Pulse Ox 83% on R/A; Weight 64.86 kg (M); sew Height 5 ft. 6 in. (167.64 cm); Pain 0/10; 14:11 BP 221 / 108 (auto/); ck1 14:11 Pulse 101 MON; Pulse Ox 85% ; ck1 14:14 Resp 36; jjr 14:35 BP 204 / 100 (auto/); ck1 14:36 Pulse 105 MON; Pulse Ox 96% ; ck1 14:45 BP 181 / 84 (auto/); ck1 14:45 Pulse 93 MON; Pulse Ox 93% ; ck1 15:15 BP 180 / 88 (auto/); ck1 15:16 Pulse 93 MON; Pulse Ox 90% ; ck1 15:34 BP 223 / 99 (auto/); ck1 15:34 Pulse 93 MON; Pulse Ox 90% ; ck1 15:36 BP 148 / 70 (auto/); ck1 15:36 Pulse 93 MON; Pulse Ox 90% ; ck1 15:45 BP 155 / 72 (auto/); ck1 15:45 Pulse 93 MON; Pulse Ox 93% ; ck1 16:00 BP 156 / 70 (auto/); ck1 16:01 Pulse 90 MON; Pulse Ox 92% ; ck1 16:15 BP 153 / 64 (auto/); ck1 16:16 Pulse 89 MON; Pulse Ox 91% ; ck1 16:30 BP 142 / 64 (auto/); ck1 16:31 Pulse 88 MON; Pulse Ox 93% ; ck1 16:45 BP 142 / 93 (auto/); ck1 16:46 Pulse 89 MON; Pulse Ox 96% ; ck1 17:00 BP 154 / 72 (auto/); ck1 17:01 Pulse 85 MON; Pulse Ox 94% ; ck1 17:15 BP 134 / 74 (auto/); ck1 17:16 Pulse 86 MON; Pulse Ox 95% ; ck1 17:30 BP 143 / 71 (auto/); ck1 17:42 Pulse 89 MON; Pulse Ox 94% ; ck1 17:45 BP 157 / 68 (auto/); ck1 17:46 Pulse 87 MON; Pulse Ox 95% ; ck1 18:00 BP 146 / 78 (auto/); ck1 18:01 Pulse 85 MON; Pulse Ox 95% ; ck1 18:15 BP 160 / 85 (auto/); ck1 18:22 Pulse 90 MON; Pulse Ox 97% ; ck1 20:05 BP 145 / 81; Pulse 89; Resp 18; Temp 98.5(TE); Pulse Ox 95% on 4 lpm NC; Pain 0/10; nn1 14:10 Body Mass Index 23.08 (64.86 kg, 167.64 cm) [facility] [place]: 14:10 Log In Time N/A - ambulance arrival. sew ED Course: 14:06 Patient visited by Judy Dixon, Loan Officer Assistant. deg 14:06 Senait Lombardo,RN is Primary Nurse. deg 14:06 Patient moved to Waiting deg 14:06 Patient moved to 1 deg 14:08 [facility] ke 14:08 Triage Initiated jjr 14:09 Patient visited by Mike Meneses FNP. ke 14:09 Patient visited by Mike Meneses FNP. ke 14:13 Patient visited by Macy Leiva. sew 14:13 Pt greeted and oriented to ED. Patient advised of names of staff involved in care, sew location of call millan, wait times and NPO status. Accompanied by Family Member, Patient has correct armband on for positive identification. Placed in gown. Bed in low position. Call light in reach. Side rails up X2. Verbal reassurance given. Head of bed elevated. Assisted with dressing. Repositioned patient. behavioral health care coordinator on. Pulse ox on. NIBP on. 14:24 Patient visited by Nahum Feliciano. jml1 14:24 EKG done. (by ED staff). Reviewed by Mike MONTAGUE. jml1 14:28 B-Type Natiuretic Peptide Sent. ck1 14:28 Basic Metabolic Profile Sent. ck1 14:28 CBC with Diff Sent. ck1 14:28 Cardiac Injury Profile Sent. ck1 14:28 Troponin Sent. ck1 14:37 Patient visited by Senait Lombardo,ORAL. ck1 14:37 The patient / caregiver is instructed regarding the plan of care and ED course. ck1 14:37 BLOOD CULTURES Sent. ck1 14:37 -Blood Culture Sent. ck1 14:37 Inserted saline lock: 20 gauge in left forearm and blood collected. The patient ck1 tolerated the procedure well. 15:06 Patient visited by Mike Meneses FNP. ke 15:19 Chest, 1 View Returned. EDMS 15:27 Patient visited by Senait Lombardo,ORAL. ck1 15:28 No procedures done that require assistance. ck1 15:40 Patient visited by Senait Lombardo,ORAL. ck1 15:41 Patient visited by Senait Lombardo,ORAL. ck1 15:43 Patient name changed from Claudia\May\\S\Brege\S\ to Claudia\May\Genna\S\Brege. EDMS 15:46 [facility] Payment Agreement was scanned into [employer] and attached to record. gb 15:56 Surjit Biswas is Hospitalizing Provider. ke 17:27 Patient moved to Ultrasound am10 17:47 Patient moved to 1 am10 18:14 Patient visited by Mariajose Mason PCA. rs6 18:14 Diet: Patient given regular meal. Tolerated well. rs6 18:39 RENAL US Returned. EDMS 18:51 Primary Nurse role handed off by Senait Lombardo,RN ck1 20:05 O2 via nasal cannula \T\ 4L/min. nn1 21:11 T-Sheet-- Draft Copy was scanned into [employer] and attached to record. klr Administered Medications: 14:23 Drug: Furosemide 40 mg [furosemide 10 mg/mL injection solution (4 mL)] Route: IVP; jjr Site: left forearm; 14:32 Drug: Albuterol 2.5 mg [albuterol sulfate 2.5 mg/0.5 mL solution for nebulization (0.5 js11 mL)] Route: Nebulizer; 14:32 Drug: Albuterol-Ipratropium 3 ml [ipratropium-albuterol 0.5 mg-3 mg(2.5 mg base)/3 mL js11 nebulization soln (3 mL)] Route: Inhalation; 15:40 Drug: Insulin Regular Human 10 units [insulin regular human 100 unit/mL injection ck1 solution (0.1 mL)] {Co-Signature: ttb (Vale Pop RN).} Route: IVP; Site: left forearm; Point of Care Testing: Blood Glucose: 16:33 Blood Glucose: 344 mg/dL; ck1 17:40 Blood Glucose: 296 mg/dL; ck1 Ranges: RT: 14:32 Initial Med Neb Given as ordered Patient was instructed and evaluated on procedure js11 Patient tolerated procedure well without adverse effect. O2 via nasal cannula \T\ 4L/min. Respiratory: Breath sounds with rhonchi bilaterally. Order Results: Lab Order: B-Type Natiuretic Peptide; SPEC'M 10/20/16 14:25 Test: BRAIN NATRIURETIC PEPTIDE; Value: 773; Range: <100; Abnormal: Above high normal; Units: PG/ML; Status: F Lab Order: Basic Metabolic Profile; SPEC'M 10/20/16 14:25 Test: GLUCOSE, FASTING; Value: 460; Range: 83-110; Abnormal: Above upper panic limits; Units: MG/DL; Status: F Test: BLOOD UREA NITROGEN; Value: 29; Range: 7-18; Abnormal: Above high normal; Units: MG/DL; Status: F Test: CREATININE FOR GFR; Value: 1.76; Range: 0.55-1.02; Abnormal: Above high normal; Units: MG/DL; Status: F Test: GLOMERULAR FILTRATION RATE; Value: 29.1; Range: >32; Abnormal: Below low normal; Status: F Test: SODIUM LEVEL; Value: 134; Range: 136-145; Abnormal: Below low normal; Units: MEQ/L; Status: F Test: POTASSIUM SERUM; Value: 5.3; Range: 3.5-5.1; Abnormal: Above high normal; Units: MEQ/L; Status: F Test: CHLORIDE LEVEL; Value: 99; Range: 98-107; Units: MEQ/L; Status: F Test: CARBON DIOXIDE LEVEL; Value: 25; Range: 21-32; Units: MEQ/L; Status: F Test: ANION GAP; Value: 10; Range: 8-16; Units: MEQ/L; Status: F Test: CALCIUM LEVEL; Value: 8.3; Range: 8.8-10.2; Abnormal: Below low normal; Units: MG/DL; Status: F Test Note: ; Units are mL/min/1.73 m2 Chronic Kidney Disease Staging per NKF: Stage I & II GFR >=60 Normal to Mildly Decreased Stage III GFR 30-59 Moderately Decreased Stage IV GFR 15-29 Severely Decreased Stage V GFR <15 Very Little GFR Left ESRD GFR <15 on [facility] Lab Order: CBC with Diff; SPEC'M 10/20/16 14:25 Test: WHITE BLOOD COUNT; Value: 9.9; Range: 4.0-10.0; Units: K/mm3; Status: F Test: RED BLOOD COUNT; Value: 4.15; Range: 4.00-5.40; Units: M/mm3; Status: F Test: HEMOGLOBIN; Value: 11.8; Range: 12.0-16.0; Abnormal: Below low normal; Units: g/dl; Status: F Test: HEMATOCRIT; Value: 38.0; Range: 36.0-47.0; Units: %; Status: F Test: MEAN CORPUSCULAR VOLUME; Value: 91.7; Range: 80.0-96.0; Units: fl; Status: F Test: MEAN CORPUSCULAR HEMOGLOBIN; Value: 28.5; Range: 27.0-33.0; Units: pg; Status: F Test: MEAN CORPUSCULAR HGB CONC; Value: 31.1; Range: 32.0-36.5; Abnormal: Below low normal; Units: g/dl; Status: F Test: RED CELL DISTRIBUTION WIDTH; Value: 13.0; Range: 11.5-14.5; Units: %; Status: F Test: PLATELET COUNT, AUTOMATED; Value: 298; Range: 150-450; Units: k/mm3; Status: F Test: NEUTROPHILS %; Value: 79.6; Range: 36.0-66.0; Abnormal: Above high normal; Units: %; Status: F Test: LYMPH %; Value: 15.5; Range: 24.0-44.0; Abnormal: Below low normal; Units: %; Status: F Test: MONO %; Value: 3.1; Range: 0.0-5.0; Units: %; Status: F Test: EOS %; Value: 0.2; Range: 0.0-3.0; Units: %; Status: F Test: BASO %; Value: 0.4; Range: 0.0-1.0; Units: %; Status: F Test: LARGE UNSTAINED CELL %; Value: 1.3; Range: 0.0-4.0; Units: %; Status: F Test: NEUTROPHILS #; Value: 7.9; Range: 1.8-7.7; Abnormal: Above high normal; Units: K/mm3; Status: F Test: LYMPH #; Value: 1.5; Range: 1.5-4.5; Units: K/mm3; Status: F Test: MONO #; Value: 0.3; Range: 0.0-0.8; Units: K/mm3; Status: F Test: EOS #; Value: 0.0; Range: 0.0-0.50; Units: K/mm3; Status: F Test: BASO #; Value: 0.0; Range: 0.0-0.2; Units: K/mm3; Status: F Test: LARGE UNSTAINED CELL #; Value: 0.1; Range: 0.0-0.4; Units: K/mm3; Status: F Lab Order: Cardiac Injury Profile; SPEC'M 10/20/16 14:25 Test: CPK CREATINE PHOSPHOKINASE; Value: 38; Range: 26-192; Units: U/L; Status: F Test: CK-MB VALUE MASS; Value: 1.3; Range: 0.0-3.6; Units: NG/ML; Status: F Test: MB/CK RELATIVE INDEX; Value: 3.42; Range: < OR =4; Status: F Test Note: ; DIAGNOSIS CRITERIA MMB ng/ml Relative Index (RI) NON-AMI < or = 5 N/A MEHTA ZONE > 5 < or = 4 AMI > 5 > 4 Lab Order: Troponin; [facility] 10/20/16 14:25 Test: TROPONIN I; Value: 0.05; Range: < 0.10; Units: NG/ML; Status: F Test Note: ; Troponin I Reference Interval for [employer] LOCI: 99th Percentile= 0.00-0.045 ng/ml Risk Stratification: <= 0.10 ng/ml Decreased Risk for Adverse Clinical Events. 0.10-1.50 ng/ml Increased Risk for Adverse Clinical Events. Evaluation of additional criterion and/or repeat testing in 2-6 hours is suggested to rule out myocardial damage. >= 1.50 ng/ml Indicative of Myocardial Injury. Lab Order: Fingerstick Blood Sugar; [facility] 10/20/16 16:31 Test: BEDSIDE GLUCOSE; Value: 344; Range: 83-110; Abnormal: Above high normal; Units: MG/DL; Status: F Lab Order: LACTIC ACID LEVEL, LACTATE; [facility] 10/20/16 18:44 Test: LACTIC ACID LEVEL, LACTATE; Value: 4.9; Range: 0.4-2.0; Abnormal: Above upper panic limits; Units: MMOL/L; Status: F Lab Order: C REACTIVE PROTEIN QUANTITATIV; [facility] 10/20/16 18:44 Test: C REACTIVE PROTEIN QUANTITATIV; Value: 8.79; Range: 0.00-0.30; Abnormal: Above high normal; Units: MG/DL; Status: F Lab Order: ERYTHROCYTE SEDIMENTATION RATE; [facility] 10/20/16 18:44 Test: ERYTHROCYTE SEDIMENTATION RATE; Value: 42; Range: 0-42; Units: mm/hr; Status: F Lab Order: MAGNESIUM LEVEL; [facility] 10/20/16 18:44 Test: MAGNESIUM LEVEL; Value: 2.0; Range: 1.8-2.4; Units: MG/DL; Status: F Lab Order: THYROID STIMULATING HORMONE; [facility] 10/20/16 18:44 Test: THYROID STIMULATING HORMONE; Value: 0.317; Range: 0.358-3.740; Abnormal: Below low normal; Units: uIU/ML; Status: F Lab Order: BASIC METABOLIC PROFILE; [facility] 10/20/16 18:44 Test: GLUCOSE, FASTING; Value: 335; Range: 83-110; Abnormal: Above high normal; Units: MG/DL; Status: F Test: BLOOD UREA NITROGEN; Value: 32; Range: 7-18; Abnormal: Above high normal; Units: MG/DL; Status: F Test: CREATININE FOR GFR; Value: 1.94; Range: 0.55-1.02; Abnormal: Above high normal; Units: MG/DL; Status: F Test: GLOMERULAR FILTRATION RATE; Value: 26.0; Range: >32; Abnormal: Below low normal; Status: F Test: SODIUM LEVEL; Value: 137; Range: 136-145; Units: MEQ/L; Status: F Test: POTASSIUM SERUM; Value: 4.6; Range: 3.5-5.1; Units: MEQ/L; Status: F Test: CHLORIDE LEVEL; Value: 99; Range: 98-107; Units: MEQ/L; Status: F Test: CARBON DIOXIDE LEVEL; Value: 24; Range: 21-32; Units: MEQ/L; Status: F Test: ANION GAP; Value: 14; Range: 8-16; Units: MEQ/L; Status: F Test: CALCIUM LEVEL; Value: 8.1; Range: 8.8-10.2; Abnormal: Below low normal; Units: MG/DL; Status: F Test Note: ; Units are mL/min/1.73 m2 Chronic Kidney Disease Staging per NKF: Stage I & II GFR >=60 Normal to Mildly Decreased Stage III GFR 30-59 Moderately Decreased Stage IV GFR 15-29 Severely Decreased Stage V GFR <15 Very Little GFR Left ESRD GFR <15 on [facility] Lab Order: HEMOGLOBIN A1C; [facility] 10/20/16 18:44 Test: HEMOGLOBIN A1c; Value: 6.5; Range: 4.5-6.2; Abnormal: Above high normal; Units: %; Status: F Test: ESTIMATED AVERAGE GLUCOSE; Value: 140; Range: 60-110; Abnormal: Above high normal; Units: MG/DL; Status: F Lab Order: CARDIAC MARKER PANEL; [facility] 10/20/16 18:44 Test: CPK CREATINE PHOSPHOKINASE; Value: 44; Range: 26-192; Units: U/L; Status: F Test: CK-MB VALUE MASS; Value: 1.7; Range: 0.0-3.6; Units: NG/ML; Status: F Test: MB/CK RELATIVE INDEX; Value: 3.86; Range: < OR =4; Status: F Test: TROPONIN I; Value: 0.06; Range: < 0.10; Units: NG/ML; Status: F Test Note: ; DIAGNOSIS CRITERIA MMB ng/ml Relative Index (RI) NON-AMI < or = 5 N/A MEHTA ZONE > 5 < or = 4 AMI > 5 > 4 Lab Order: Fingerstick Blood Sugar; [facility] 10/20/16 17:45 Test: BEDSIDE GLUCOSE; Value: 296; Range: 83-110; Abnormal: Above high normal; Units: MG/DL; Status: F Lab Order: LIVER PROFILE; [facility] 10/20/16 18:44 Test: AST/SGOT; Value: 33; Range: 15-37; Units: U/L; Status: F Test: ALT/SGPT; Value: 43; Range: 12-78; Units: U/L; Status: F Test: ALKALINE PHOSPHATASE; Value: 157; Range: 45-117; Abnormal: Above high normal; Units: U/L; Status: F Test: BILIRUBIN,TOTAL; Value: 0.3; Range: 0.2-1.0; Units: MG/DL; Status: F Test: BILIRUBIN,DIRECT; Value: < 0.1; Range: 0.0-0.2; Units: MG/DL; Status: F Test: TOTAL PROTEIN; Value: 6.8; Range: 6.4-8.2; Units: GM/DL; Status: F Test: ALBUMIN; Value: 3.3; Range: 3.2-5.2; Units: GM/DL; Status: F Test: ALBUMIN/GLOBULIN RATIO; Value: 0.94; Range: 1.00-1.93; Abnormal: Below low normal; Status: F Radiology Order: Chest, 1 View Test: Chest, 1 View REASON FOR EXAMINATION: Shortness of Breath; Clinical: Shortness of breath.; ; Findings:; Cardiomegaly. Diffuse increased interstitial markings with indistinct pulmonary; vasculature and cephalization suggests pulmonary venous congestion and; interstitial edema. No obvious effusion. No pneumothorax. Mediastinum and; cardiac silhouette are within normal limits for portable technique. Skeletal; structures demonstrate age-related degenerative changes.; ; Impression:; Findings suggest pulmonary venous congestion and interstitial edema.; ; ; Signed by; Darwin Hanson MD 10/20/2016 02:33 P; Radiology Order: RENAL US Test: RENAL US REASON FOR EXAMINATION: acute kidney injury, chronic kidney disease? ; Clinical: Acute trauma with chronic medical renal disease.; ; Technique: Mehta scale evaluation of the kidneys using curved array transducer.; ; Findings:; ; The kidneys are essentially normal in contour size and echogenicity and reniform; shape without hydronephrosis, nephrolithiasis, cystic or renal mass lesion.; Right kidney measures 10.0 x 4.7 x 4.8 cm. Left kidney measures 8.8 x 3.5 x 3.5; cm. Bladder is incompletely distended and grossly normal by current evaluation.; Small left pleural effusion noted.; ; ; ; Impression:; ; Chronic medical Renal disease.; ; Small left pleural effusion.; ; No renal trauma/injury appreciated.; ; ; Signed by; Darwin Hanson MD 10/20/2016 06:04 P; Outcome: 15:57 Decision to Hospitalize by Provider. ke 20:04 Discharge Assessment: Patient awake, alert and oriented x 3. No cognitive and/or nn1 functional deficits noted. Patient verbalized understanding of disposition instructions. 20:04 Discharge Assessment: patient administered narcotics - no. The following High Risk nn1 Discharge criteria are identified: None. Admitted to PCU accompanied by nurse, accompanied by tech, via stretcher, with oxygen, on monitor, with chart. Condition: stable. No special radiology studies were completed. Admission hand-off: Report Faxed Fax receipt verified by ORAL Nix . Property :Personal belongings accompany Pt. 20:18 Patient left the ED. nn1 Signatures: Dispatcher [employer] EDJudy Redd, Loan Officer Assistant Unit deg Romelia Morfin, Reg Reg gb Mike Meneses, IT OPERATIONS SPECIALIST IT OPERATIONS SPECIALIST Senait BrandonRN RN ck1 Fanny Graham Jessica, RN RN Yon Morton js11 Nahum Feliciano jml1 Leiva, Macy Mason, Mariajose, HAUL DRIVER HAUL DRIVER rs6 Ninoska Porter,RN RN nn1 Suad Brown RN ttb Chart Complete MTDD
--- NOTE | 2016-10-22 21:18 | EDDOCDS ---
Physician Documentation [facility] Name: Claudia Miranda Age: 86 yrs Sex: Female : 1930 Arrival Date: 10/20/2016 Time: 14:05 Bed 1 Private MD: Disposition: 10/20/16 15:57 Hospitalization ordered by Surjit Biswas for Inpatient Admission. Preliminary diagnosis are Hyperglycemia, unspecified, Acute combined systolic (congestive) and diastolic (congestive) heart failure, Hypoxemia. - Bed requested for PCU. - Status is Inpatient Admission. nn1 - Condition is Stable. - Problem is an ongoing problem. - Symptoms are unchanged. Historical: - Allergies: no known allergies; - Home Meds: 1. simvastatin 40 mg Oral tab 1 tab once daily 2. glipizide 5 mg Oral tab 1 tab 2 times per day 3. metoprolol tartrate 50 mg Oral tab 1 tab 2 times per day 4. Onglyza 2.5 mg oral tab 1 tab once daily 5. metformin 750 mg oral Tb24 bid - PMHx: Diabetes - NIDDM: controlled; Hypertension; Hypercholesterolemia; - PSHx: none; - Social history: Smoking status: Patient states former smoker of tobacco. No barriers to communication noted, The patient speaks fluent Filipino. - Family history: Not pertinent. - : The pt / caregiver states he / she is not on anticoagulants. Home medication list is obtained from pill bottles. - Exposure Risk Screening:: None identified. Vital Signs: 10/20 14:10 BP 221 / 108; Pulse 96; Resp 26; Temp 97.4; Pulse Ox 83% on R/A; Weight 64.86 kg / sew 142.99 lbs (M); Height 5 ft. 6 in. (167.64 cm); Pain 0/10; 14:11 BP 221 / 108 (auto/); ck1 14:11 Pulse 101 MON; Pulse Ox 85% ; ck1 14:14 Resp 36; jjr 14:35 BP 204 / 100 (auto/); ck1 14:36 Pulse 105 MON; Pulse Ox 96% ; ck1 14:45 BP 181 / 84 (auto/); ck1 14:45 Pulse 93 MON; Pulse Ox 93% ; ck1 15:15 BP 180 / 88 (auto/); ck1 15:16 Pulse 93 MON; Pulse Ox 90% ; ck1 15:34 BP 223 / 99 (auto/); ck1 15:34 Pulse 93 MON; Pulse Ox 90% ; ck1 15:36 BP 148 / 70 (auto/); ck1 15:36 Pulse 93 MON; Pulse Ox 90% ; ck1 15:45 BP 155 / 72 (auto/); ck1 15:45 Pulse 93 MON; Pulse Ox 93% ; ck1 16:00 BP 156 / 70 (auto/); ck1 16:01 Pulse 90 MON; Pulse Ox 92% ; ck1 16:15 BP 153 / 64 (auto/); ck1 16:16 Pulse 89 MON; Pulse Ox 91% ; ck1 16:30 BP 142 / 64 (auto/); ck1 16:31 Pulse 88 MON; Pulse Ox 93% ; ck1 16:45 BP 142 / 93 (auto/); ck1 16:46 Pulse 89 MON; Pulse Ox 96% ; ck1 17:00 BP 154 / 72 (auto/); ck1 17:01 Pulse 85 MON; Pulse Ox 94% ; ck1 17:15 BP 134 / 74 (auto/); ck1 17:16 Pulse 86 MON; Pulse Ox 95% ; ck1 17:30 BP 143 / 71 (auto/); ck1 17:42 Pulse 89 MON; Pulse Ox 94% ; ck1 17:45 BP 157 / 68 (auto/); ck1 17:46 Pulse 87 MON; Pulse Ox 95% ; ck1 18:00 BP 146 / 78 (auto/); ck1 18:01 Pulse 85 MON; Pulse Ox 95% ; ck1 18:15 BP 160 / 85 (auto/); ck1 18:22 Pulse 90 MON; Pulse Ox 97% ; ck1 20:05 BP 145 / 81; Pulse 89; Resp 18; Temp 98.5(TE); Pulse Ox 95% on 4 lpm NC; Pain 0/10; nn1 14:10 Body Mass Index 23.08 (64.86 kg, 167.64 cm) sew MDM: 14:07 -Blood Culture (Adults Only), peripheral from different site, or from device/port/PICC sd1 etc. if present ordered. 14:07 Financial Sales Representative/Pulse Ox/q 15 min VS ordered. sd1 14:07 IV Saline Lock ordered. sd1 14:07 Oxygen at 4L/Min NC or Home dosage ordered. sd1 14:07 Rhythm Strip to chart ordered. sd1 14:08 -Blood Culture Ordered. EDMS 14:08 B-Type Natiuretic Peptide Ordered. EDMS 14:08 Basic Metabolic Profile Ordered. EDMS 14:08 CBC with Diff Ordered. EDMS 14:08 Cardiac Injury Profile Ordered. EDMS 14:08 Troponin Ordered. EDMS 14:08 Chest, 1 View Ordered. EDMS 14:08 ECG WITH READING ER PHYS+CARDIAG ordered. EDMS 14:14 Albuterol 2.5 mg Nebulizer once ordered. ke 14:14 Albuterol-Ipratropium 3 ml Inhalation once ordered. ke 14:14 Call Respiratory ordered. ke 14:14 Furosemide 40 mg IVP once ordered. ke 14:20 BLOOD CULTURES Ordered. EDMS 14:28 Call Respiratory complete. ck1 14:28 -Blood Culture (Adults Only), peripheral from different site, or from device/port/PICC ck1 etc. if present complete. 15:29 B-Type Natiuretic Peptide Reviewed. ke 15:29 CBC with Diff Reviewed. ke 15:29 Chest, 1 View Reviewed. ke 15:30 Accucheck hourly ordered. ke 15:30 Insulin Regular Human 10 units IVP once ordered. ke 15:46 Financial registration complete. gb 15:46 [facility] [place] Agreement was scanned into [employer] and attached to record. gb 15:49 Basic Metabolic Profile Reviewed. ke 15:49 Cardiac Injury Profile Reviewed. ke 15:49 Troponin Reviewed. ke 17:02 RENAL US Ordered. EDMS 17:03 ECHOCARD,DOPPLER/COLOR FLOW ordered. EDMS 17:03 URINALYSIS Ordered. EDMS 17:03 SODIUM,RANDOM URINE Ordered. EDMS 17:03 CHLORIDE,RANDOM URINE Ordered. EDMS 17:04 POTASSIUM,RANDOM URINE Ordered. EDMS 17:04 LACTIC ACID LEVEL, LACTATE Ordered. EDMS 17:04 C REACTIVE PROTEIN QUANTITATIV Ordered. EDMS 17:04 ERYTHROCYTE SEDIMENTATION RATE Ordered. EDMS 17:04 URINE STREP PNEUMONIAE ANTIGEN Ordered. EDMS 17:04 LEGIONELLA ANTIGEN URINE Ordered. EDMS 17:04 MAGNESIUM LEVEL Ordered. EDMS 17:04 THYROID STIMULATING HORMONE Ordered. EDMS 17:05 BASIC METABOLIC PROFILE Ordered. EDMS 17:05 HEMOGLOBIN A1C Ordered. EDMS 17:05 CARDIAC MARKER PANEL Ordered. EDMS 17:05 URINE CULTURE Ordered. EDMS 17:05 SPUTUM CULTURE AND GRAM STAIN Ordered. EDMS 17:05 INFLUENZA A&B RAPID ANTIGEN Ordered. EDMS 17:10 PHYSICAL THERAPY EVAL & TREAT ordered. EDMS 17:10 CONSISTENT CARBOHYDRATES ordered. EDMS 17:27 Admission / Observation Status ordered. EDMS 17:53 Fingerstick Blood Sugar Ordered. EDMS 18:52 LIVER PROFILE Ordered. EDMS 19:01 CREATININE,RANDOM URINE Ordered. EDMS 19:01 TOTAL PROTEIN,RANDOM URINE Ordered. EDMS 19:31 BRAIN NATIURETIC PEPTIDE Ordered. EDMS 19:31 CBC WITH DIFFERENTIAL Ordered. EDMS 19:31 CARDIAC RISK PROFILE Ordered. EDMS 19:31 CARDIAC MARKER PANEL Ordered. EDMS 19:31 IRON (FE) Ordered. EDMS 19:31 TOTAL IRON BINDING CAPACIT Ordered. EDMS 19:31 FERRITIN Ordered. EDMS 19:31 VITAMIN B12 LEVEL Ordered. EDMS 19:31 FOLATE Ordered. EDMS 20:13 LACTIC ACID LEVEL, LACTATE Ordered. EDMS 21:11 T-Sheet-- Draft Copy was scanned into [employer] and attached to record. klr Point of Care Testing: Blood Glucose: 16:33 Blood Glucose: 344 mg/dL; ck1 17:40 Blood Glucose: 296 mg/dL; ck1 Ranges: Administered Medications: 14:23 Drug: Furosemide 40 mg [furosemide 10 mg/mL injection solution (4 mL)] Route: IVP; jjr Site: left forearm; 14:32 Drug: Albuterol 2.5 mg [albuterol sulfate 2.5 mg/0.5 mL solution for nebulization (0.5 js11 mL)] Route: Nebulizer; 14:32 Drug: Albuterol-Ipratropium 3 ml [ipratropium-albuterol 0.5 mg-3 mg(2.5 mg base)/3 mL js11 nebulization soln (3 mL)] Route: Inhalation; 15:40 Drug: Insulin Regular Human 10 units [insulin regular human 100 unit/mL injection ck1 solution (0.1 mL)] {Co-Signature: ttb (Vale Pop RN).} Route: IVP; Site: left forearm; Signatures: Dispatcher MedHost EDMS Macy Gibson MD MD sd1 Cece HC, ORAL Baird RN daq Barnhardt, Romelia, Reg Reg gb Mike Meneses, SINGLE NEEDLE TUFTING MACHINE OPERATOR SINGLE NEEDLE TUFTING MACHINE OPERATOR ke Senait Lombardo,RN RN ck1 Samantha Guillen RN RN Ninoska Suarez RN RN nn1 Suad Brown Jordan js11 Vale Pop RN ttb The chart was reviewed and I authenticate all verbal orders and agree with the evaluation and treatment provided.Corrections: (The following items were deleted from the chart) 18:55 18:35 LIVER PROFILE ordered. EDMS EDMS 19:01 17:04 TOTAL PROTEIN,RANDOM URINE ordered. EDMS EDMS 19:01 17:04 CREATININE,RANDOM URINE ordered. EDMS EDMS Attachments: 15:46 [facility] Payment Agreement gb 21:11 T-Sheet-- Draft Copy klr Chart Complete MTDD
[2016-10-23] VITALS (8 sets, daily range): BP systolic 127–149; BP diastolic 56–87; O2SAT 95
[2016-10-23 05:24] LABS: BASO # 0.1 K/mm3 (0.0-0.2); EOS # 0.1 K/mm3 (0.0-0.50); EOS % 1.6 % (0.0-3.0); LARGE UNSTAINED CELL # 0.1 K/mm3 (0.0-0.4); LARGE UNSTAINED CELL % 1.9 % (0.0-4.0); LYMPH # 1.3 K/mm3 (1.5-4.5); LYMPH % 23.7 % (24.0-44.0); MEAN CORPUSCULAR HEMOGLOBIN 27.7 pg (27.0-33.0); MEAN CORPUSCULAR HGB CONC 32.1 g/dl (32.0-36.5); MEAN CORPUSCULAR VOLUME 86.2 fl (80.0-96.0); MONO # 0.3 K/mm3 (0.0-0.8); MONO % 6.8 % (0.0-5.0); NEUTROPHILS # 3.2 K/mm3 (1.8-7.7); NEUTROPHILS % 63.9 % (36.0-66.0); PLATELET COUNT, AUTOMATED 269 k/mm3 (150-450); RED CELL DISTRIBUTION WIDTH 13.4 % (11.5-14.5)
[2016-10-23 05:52] LABS: CALCIUM LEVEL 8.6 MG/DL (8.8-10.2); CREATININE FOR GFR 1.64 MG/DL (0.55-1.02); GLOMERULAR FILTRATION RATE 31.5 (>32); MAGNESIUM LEVEL 1.9 MG/DL (1.8-2.4); POTASSIUM SERUM 3.6 MEQ/L (3.5-5.1)
[2016-10-23] MEDS: HumaLOG INSULIN (NovoLOG) PER UNIT SC SCH ×4 (07:46→20:13)
[2016-10-23] MEDS: IPRATROPIUM 0.5MG/ALBUTEROL 2.5MG INH SOL UD 3ML (DUONEB)(J7620) NEB SCH ×4 (08:00→19:34)
--- NOTE | 2016-10-23 08:38 | IPN ---
DATE: 10/23/2016 Mrs. Miranda tells me that she is feeling better than she did yesterday. She denies any chest pain or sensation of palpitations. She does tell me that she feels tired and most importantly hungry. Overall feels improved since admission. Vital signs: Blood pressure is 147/87. heart rate is atrial fibrillation with heart rate anywhere from 80s to 150s. She is afebrile. Saturation is 92% on room air. Her weight is 59.4 kg. Lungs: Reveal coarse lung sounds with some expiratory wheezes and rhonchi. Seem to be some improvement after she expectorates. Heart exam: Irregularly irregular rhythm. I do not appreciate murmur, gallop or rub. Abdomen is soft, nontender. There is no significant peripheral edema. Neurologically, she appears intact. Laboratory gorman: Potassium 3.6, BUN 38, creatinine 1.6, GFR 31, and glucose 119. Her CBC is normal. PTT is 62. ASSESSMENT AND PLAN: Mrs. Miranda is an 86-year-old female who denies any significant past cardiac history. She presented with hypoxemia and shortness of breath. It was felt to be most likely due to infectious process, most likely bronchitis. Even though congestive heart failure was in differential diagnosis, based on history I would be more inclined to believe that the infectious etiology is the dominant local driver. Based on echocardiogram, there was a suspicion raised for pulmonary embolism. She will be having VQ scan later today. During the hospitalization, she developed atrial fibrillation with rapid ventricular response, which has not been well rate-controlled yet. As far as the atrial fibrillation management is concerned, she was started on IV amiodarone and amiodarone will continue. She has been anticoagulated with heparin and likely will need long-term anticoagulation. As far as the shortness of breath is concerned, I do suspect that it is more of infectious etiology rather than congestive heart failure. She is already on wide spectrum antibiotics; and finally depending on results of her VQ scan will have a better idea whether she might have underlying pulmonary embolism. I have to admit that my suspicion is relatively low. From practical perspective, she will be anticoagulated regardless whether she has pulmonary embolism or not, so this distinction will not make a big difference for her therapeutic regimen.
[2016-10-23] MEDS: cefTRIAXone SOD 1 GM in D5W MINI-BAG PLUS 50 ML IV SCH (09:56)
[2016-10-23] MEDS: DOCUSATE SODIUM 100 MG CAP PO SCH ×2 (09:56→20:42)
[2016-10-23] MEDS: FUROSEMIDE 40 MG/4 ML VIAL (J1940) IV SCH ×3 (09:56→16:41)
[2016-10-23] MEDS: METOPROLOL TART 50 MG TAB PO SCH ×3 (09:56→20:42)
[2016-10-23] MEDS: AZITHROMYCIN 500 MG, VIAL MATE ADAPTER 1 EACH in D5W 250 ML IV SCH (10:42)
--- NOTE | 2016-10-23 11:18 | IPN ---
DATE: 10/23/2016 Time patient was seen was this morning at 8:25 a.m. Patient has been seen and examined at bedside. No acute events overnight. Patient does not have any chest pain or trouble breathing currently. Stated that she is feeling much better. Denies any abdominal pains, nausea, vomiting, diarrhea, constipation, or any problem with urination. Denies any other current new complaints. PHYSICAL EXAMINATION: VITAL SIGNS: Temperature 96.7, pulse 103, respirations 18, blood pressure 130/56, oxygen saturating at 95% on RA. GENERAL: Patient is a pleasant, elderly female who is alert, awake, oriented times three, does not appear to be in distress, resting comfortably in bed with head elevated at 60 degrees. HEENT: Normocephalic, atraumatic. Extraocular motors intact. Mucous moist. Neck supple. No neck lymphadenopathy. CARDIOVASCULAR: Irregularly irregular. S1, S2. Difficult to auscultate due to increased AP diameter. LUNGS: Slight wheezing and rales bilaterally. ABDOMEN: Positive bowel sounds. Soft, nontender. No peritoneal signs. No ecchymosis. EXTREMITIES: No edema, clubbing, or cyanosis. SKIN: Warm and dry. NEUROLOGIC: Cranial nerves II-XII intact. No focal neurological deficit. LABORATORY DATA: WBC 5, hemoglobin 13, hematocrit 40.5, with a platelet count of 269 and MCV of 86.2. Sodium 136, potassium 3.6, chloride 96, bicarbonate 30, BUN 30, creatinine 1.64, GFR 31.5, glucose was 119, calcium 8.6, magnesium 1.9, C-reactive protein was reduced compared to day prior, 5.9 compared to 10.0. BNP also reduced compared to the day prior, 843 compared to 1090. Patient's PTT level yesterday was 98 and 70 and today is 61. Accu-Chek glucose overnight was 286, 118, 271. Urine Legionella, Streptococcus pneumoniae are pending. Patient's sputum gram stain shows a few gram-positive rods and moderate gram-positive cocci in pairs, chains, and clusters. Sensitivity pending. Urine culture shows no growth. Blood culture shows no growth after four days. Patient had a chest x-ray this morning, preliminary result shows normal chest. Official result is pending. The patient also has V/Q scan done. Official result is pending. Preliminary result shows possibly poor perfusion on the right side of the lung, official result is pending. We will followup. ASSESSMENT AND PLAN: 86-year-old female with past medical history of hypertension, dyslipidemia, type 2 diabetes, possible chronic obstructive pulmonary disease (COPD), presented with dyspnea, cough, shortness of breath, and hypoxia. 1. Hypoxia, secondary to underlying community-acquired pneumonia versus pulmonary edema from congestive heart failure (CHF) versus pulmonary embolism. Due to patient's acute on chronic renal failure, CT with contrast could not be done, therefore a V/Q scan has been ordered, official result is pending. E will followup. Dr. Orourke and Dr. Felipe from cardiology have been consulted. We will follow their recommendations. At this point, we will continue azithromycin and Rocephin. We will followup with the sputum cultures. So far, the sputum culture shows gram-positive organism, cocci in cluster and chains. 2. Possible pulmonary embolism. Patient has been empirically started on heparin drip. Continue to follow partial thromboplastin time (PTT). VQ scan has been ordered, we will followup. 3. Possible community-acquired pneumonia shown on CT of the chest. Continue azithromycin and Rocephin. C-reactive protein (CRP) is trending down. We will continue to monitor. 4. Possible history of chronic obstructive pulmonary disease (COPD). The patient does not have any lung history. At this point, the patient possibly has bronchitis versus community-acquired pneumonia. We will continue nebulizer and we will continue oxygen supplementation as needed. 5. Questionable decompensated heart failure. Continue Lasix, strict intake and output. 6. New onset atrial fibrillation with rapid ventricular rate. Cardiology has been consulted. We appreciate their help. The patient is currently on intravenous amiodarone. We will continue and continue to monitor the patient. So far ventricular rate is close to 100. 7. Hypertension. Continue metoprolol. 8. Acute on chronic kidney disease with unknown baseline. Renal ultrasound does show medical renal disease, which the patient stated that she does not know that she has renal disease. 9. Kze-zshvyyv-[id number] type 2 diabetes. Continue insulin sliding scale per protocol. A1c is 6.5. Continue Levemir. 10. Dyslipidemia. Continue statin. 11. Deep venous thrombosis (DVT) prophylaxis. On heparin drip for possible pulmonary embolus (PE). DISPOSITION: VQ scan has been ordered, it has been done; however, official result is pending. We will followup. In addition, cardiology, Dr. Orourke and Dr. Felipe, have been consulted. We will follow their recommendations. We appreciate their help. Patient has been discussed with attending doctor, Dr. Pierre. My preceptor for this patient encounter was Dr. Lucie Pierre. The preceptor was physically present in the building during the encounter and was fully available. As needed, all aspects of the patient interview, examination, medical decision making process, and medical care plan development were reviewed and approved by the preceptor. The preceptor is aware and concurs with the plan as stated in the body of this note and will attest to such by his cosignature. I have both independently examined this patient as well as reviewed the note. I have discussed in detail with the resident the findings and plan of treatment as documented in the residents note. I will continue to follow the patient and offer further guidance to the patients care as necessary during this hospital stay. Lucie GAXIOLA
[2016-10-23] MEDS ORDERED: POTASSIUM CHLORIDE 10 MEQ SR TABLET PO ONE (13:00)
--- NOTE | 2016-10-23 14:02 | EDDOCDS ---
Physician Documentation [facility] Name: Claudia Miranda Age: 86 yrs Sex: Female : 1930 Arrival Date: 10/20/2016 Time: 14:05 Bed 1 Private MD: Disposition: 10/20/16 15:57 Hospitalization ordered by Surjit Biswas for Inpatient Admission. Preliminary diagnosis are Hyperglycemia, unspecified, Acute combined systolic (congestive) and diastolic (congestive) heart failure, Hypoxemia. - Bed requested for PCU. - Status is Inpatient Admission. nn1 - Condition is Stable. - Problem is an ongoing problem. - Symptoms are unchanged. Historical: - Allergies: no known allergies; - Home Meds: 1. simvastatin 40 mg Oral tab 1 tab once daily 2. glipizide 5 mg Oral tab 1 tab 2 times per day 3. metoprolol tartrate 50 mg Oral tab 1 tab 2 times per day 4. Onglyza 2.5 mg oral tab 1 tab once daily 5. metformin 750 mg oral Tb24 bid - PMHx: Diabetes - NIDDM: controlled; Hypertension; Hypercholesterolemia; - PSHx: none; - Social history: Smoking status: Patient states former smoker of tobacco. No barriers to communication noted, The patient speaks fluent Swazi. - Family history: Not pertinent. - : The pt / caregiver states he / she is not on anticoagulants. Home medication list is obtained from pill bottles. - Exposure Risk Screening:: None identified. Vital Signs: 10/20 14:10 BP 221 / 108; Pulse 96; Resp 26; Temp 97.4; Pulse Ox 83% on R/A; Weight 64.86 kg / sew 142.99 lbs (M); Height 5 ft. 6 in. (167.64 cm); Pain 0/10; 14:11 BP 221 / 108 (auto/); ck1 14:11 Pulse 101 MON; Pulse Ox 85% ; ck1 14:14 Resp 36; jjr 14:35 BP 204 / 100 (auto/); ck1 14:36 Pulse 105 MON; Pulse Ox 96% ; ck1 14:45 BP 181 / 84 (auto/); ck1 14:45 Pulse 93 MON; Pulse Ox 93% ; ck1 15:15 BP 180 / 88 (auto/); ck1 15:16 Pulse 93 MON; Pulse Ox 90% ; ck1 15:34 BP 223 / 99 (auto/); ck1 15:34 Pulse 93 MON; Pulse Ox 90% ; ck1 15:36 BP 148 / 70 (auto/); ck1 15:36 Pulse 93 MON; Pulse Ox 90% ; ck1 15:45 BP 155 / 72 (auto/); ck1 15:45 Pulse 93 MON; Pulse Ox 93% ; ck1 16:00 BP 156 / 70 (auto/); ck1 16:01 Pulse 90 MON; Pulse Ox 92% ; ck1 16:15 BP 153 / 64 (auto/); ck1 16:16 Pulse 89 MON; Pulse Ox 91% ; ck1 16:30 BP 142 / 64 (auto/); ck1 16:31 Pulse 88 MON; Pulse Ox 93% ; ck1 16:45 BP 142 / 93 (auto/); ck1 16:46 Pulse 89 MON; Pulse Ox 96% ; ck1 17:00 BP 154 / 72 (auto/); ck1 17:01 Pulse 85 MON; Pulse Ox 94% ; ck1 17:15 BP 134 / 74 (auto/); ck1 17:16 Pulse 86 MON; Pulse Ox 95% ; ck1 17:30 BP 143 / 71 (auto/); ck1 17:42 Pulse 89 MON; Pulse Ox 94% ; ck1 17:45 BP 157 / 68 (auto/); ck1 17:46 Pulse 87 MON; Pulse Ox 95% ; ck1 18:00 BP 146 / 78 (auto/); ck1 18:01 Pulse 85 MON; Pulse Ox 95% ; ck1 18:15 BP 160 / 85 (auto/); ck1 18:22 Pulse 90 MON; Pulse Ox 97% ; ck1 20:05 BP 145 / 81; Pulse 89; Resp 18; Temp 98.5(TE); Pulse Ox 95% on 4 lpm NC; Pain 0/10; nn1 14:10 Body Mass Index 23.08 (64.86 kg, 167.64 cm) sew MDM: 14:07 -Blood Culture (Adults Only), peripheral from different site, or from device/port/PICC sd1 etc. if present ordered. 14:07 Chemical Blender/Pulse Ox/q 15 min VS ordered. sd1 14:07 IV Saline Lock ordered. sd1 14:07 Oxygen at 4L/Min NC or Home dosage ordered. sd1 14:07 Rhythm Strip to chart ordered. sd1 14:08 -Blood Culture Ordered. EDMS 14:08 B-Type Natiuretic Peptide Ordered. EDMS 14:08 Basic Metabolic Profile Ordered. EDMS 14:08 CBC with Diff Ordered. EDMS 14:08 Cardiac Injury Profile Ordered. EDMS 14:08 Troponin Ordered. EDMS 14:08 Chest, 1 View Ordered. EDMS 14:08 ECG WITH READING ER PHYS+CARDIAG ordered. EDMS 14:14 Albuterol 2.5 mg Nebulizer once ordered. ke 14:14 Albuterol-Ipratropium 3 ml Inhalation once ordered. ke 14:14 Call Respiratory ordered. ke 14:14 Furosemide 40 mg IVP once ordered. ke 14:20 BLOOD CULTURES Ordered. EDMS 14:28 Call Respiratory complete. ck1 14:28 -Blood Culture (Adults Only), peripheral from different site, or from device/port/PICC ck1 etc. if present complete. 15:29 B-Type Natiuretic Peptide Reviewed. ke 15:29 CBC with Diff Reviewed. ke 15:29 Chest, 1 View Reviewed. ke 15:30 Accucheck hourly ordered. ke 15:30 Insulin Regular Human 10 units IVP once ordered. ke 15:46 Financial registration complete. gb 15:46 [facility] [place] Payment Agreement was scanned into [employer] and attached to record. gb 15:49 Basic Metabolic Profile Reviewed. ke 15:49 Cardiac Injury Profile Reviewed. ke 15:49 Troponin Reviewed. ke 17:02 RENAL US Ordered. EDMS 17:03 ECHOCARD,DOPPLER/COLOR FLOW ordered. EDMS 17:03 URINALYSIS Ordered. EDMS 17:03 SODIUM,RANDOM URINE Ordered. EDMS 17:03 CHLORIDE,RANDOM URINE Ordered. EDMS 17:04 POTASSIUM,RANDOM URINE Ordered. EDMS 17:04 LACTIC ACID LEVEL, LACTATE Ordered. EDMS 17:04 C REACTIVE PROTEIN QUANTITATIV Ordered. EDMS 17:04 ERYTHROCYTE SEDIMENTATION RATE Ordered. EDMS 17:04 URINE STREP PNEUMONIAE ANTIGEN Ordered. EDMS 17:04 LEGIONELLA ANTIGEN URINE Ordered. EDMS 17:04 MAGNESIUM LEVEL Ordered. EDMS 17:04 THYROID STIMULATING HORMONE Ordered. EDMS 17:05 BASIC METABOLIC PROFILE Ordered. EDMS 17:05 HEMOGLOBIN A1C Ordered. EDMS 17:05 CARDIAC MARKER PANEL Ordered. EDMS 17:05 URINE CULTURE Ordered. EDMS 17:05 SPUTUM CULTURE AND GRAM STAIN Ordered. EDMS 17:05 INFLUENZA A&B RAPID ANTIGEN Ordered. EDMS 17:10 PHYSICAL THERAPY EVAL & TREAT ordered. EDMS 17:10 CONSISTENT CARBOHYDRATES ordered. EDMS 17:27 Admission / Observation Status ordered. EDMS 17:53 Fingerstick Blood Sugar Ordered. EDMS 18:52 LIVER PROFILE Ordered. EDMS 19:01 CREATININE,RANDOM URINE Ordered. EDMS 19:01 TOTAL PROTEIN,RANDOM URINE Ordered. EDMS 19:31 BRAIN NATIURETIC PEPTIDE Ordered. EDMS 19:31 CBC WITH DIFFERENTIAL Ordered. EDMS 19:31 CARDIAC RISK PROFILE Ordered. EDMS 19:31 CARDIAC MARKER PANEL Ordered. EDMS 19:31 IRON (FE) Ordered. EDMS 19:31 TOTAL IRON BINDING CAPACIT Ordered. EDMS 19:31 FERRITIN Ordered. EDMS 19:31 VITAMIN B12 LEVEL Ordered. EDMS 19:31 FOLATE Ordered. EDMS 20:13 LACTIC ACID LEVEL, LACTATE Ordered. EDMS 21:11 T-Sheet-- Draft Copy was scanned into [employer] and attached to record. klr Point of Care Testing: Blood Glucose: 16:33 Blood Glucose: 344 mg/dL; ck1 17:40 Blood Glucose: 296 mg/dL; ck1 Ranges: Administered Medications: 14:23 Drug: Furosemide 40 mg [furosemide 10 mg/mL injection solution (4 mL)] Route: IVP; jjr Site: left forearm; 14:32 Drug: Albuterol 2.5 mg [albuterol sulfate 2.5 mg/0.5 mL solution for nebulization (0.5 js11 mL)] Route: Nebulizer; 14:32 Drug: Albuterol-Ipratropium 3 ml [ipratropium-albuterol 0.5 mg-3 mg(2.5 mg base)/3 mL js11 nebulization soln (3 mL)] Route: Inhalation; 15:40 Drug: Insulin Regular Human 10 units [insulin regular human 100 unit/mL injection ck1 solution (0.1 mL)] {Co-Signature: ttb (Vale Pop RN).} Route: IVP; Site: left forearm; Signatures: Dispatcher MedHost EDMS Macy Gibson MD MD sd1 Cece HC, ORAL Baird RN daq Barnhardt, Romelia, Reg Reg gb Mike Meneses, MAGAZINE GRINDER LOADER MAGAZINE GRINDER LOADER ke Senait Lombardo,RN RN ck1 Samantha Guillen RN RN Ninoska Suarez RN RN nn1 Suad Brown Jordan js11 Vale Pop RN ttb The chart was reviewed and I authenticate all verbal orders and agree with the evaluation and treatment provided.Corrections: (The following items were deleted from the chart) 18:55 18:35 LIVER PROFILE ordered. EDMS EDMS 19:01 17:04 TOTAL PROTEIN,RANDOM URINE ordered. EDMS EDMS 19:01 17:04 CREATININE,RANDOM URINE ordered. EDMS EDMS Attachments: 15:46 [facility] Payment Agreement gb 21:11 T-Sheet-- Draft Copy klr Chart Complete MTDD
--- NOTE | 2016-10-23 14:02 | EDDOCDS ---
Physician Documentation [facility] Name: Claudia Miranda Age: 86 yrs Sex: Female : 1930 Arrival Date: 10/20/2016 Time: 14:05 Bed 1 Private MD: Disposition: 10/20/16 15:57 Hospitalization ordered by Surjit Biswas for Inpatient Admission. Preliminary diagnosis are Hyperglycemia, unspecified, Acute combined systolic (congestive) and diastolic (congestive) heart failure, Hypoxemia. - Bed requested for PCU. - Status is Inpatient Admission. nn1 - Condition is Stable. - Problem is an ongoing problem. - Symptoms are unchanged. Historical: - Allergies: no known allergies; - Home Meds: 1. simvastatin 40 mg Oral tab 1 tab once daily 2. glipizide 5 mg Oral tab 1 tab 2 times per day 3. metoprolol tartrate 50 mg Oral tab 1 tab 2 times per day 4. Onglyza 2.5 mg oral tab 1 tab once daily 5. metformin 750 mg oral Tb24 bid - PMHx: Diabetes - NIDDM: controlled; Hypertension; Hypercholesterolemia; - PSHx: none; - Social history: Smoking status: Patient states former smoker of tobacco. No barriers to communication noted, The patient speaks fluent Wallisian. - Family history: Not pertinent. - : The pt / caregiver states he / she is not on anticoagulants. Home medication list is obtained from pill bottles. - Exposure Risk Screening:: None identified. Vital Signs: 10/20 14:10 BP 221 / 108; Pulse 96; Resp 26; Temp 97.4; Pulse Ox 83% on R/A; Weight 64.86 kg / sew 142.99 lbs (M); Height 5 ft. 6 in. (167.64 cm); Pain 0/10; 14:11 BP 221 / 108 (auto/); ck1 14:11 Pulse 101 MON; Pulse Ox 85% ; ck1 14:14 Resp 36; jjr 14:35 BP 204 / 100 (auto/); ck1 14:36 Pulse 105 MON; Pulse Ox 96% ; ck1 14:45 BP 181 / 84 (auto/); ck1 14:45 Pulse 93 MON; Pulse Ox 93% ; ck1 15:15 BP 180 / 88 (auto/); ck1 15:16 Pulse 93 MON; Pulse Ox 90% ; ck1 15:34 BP 223 / 99 (auto/); ck1 15:34 Pulse 93 MON; Pulse Ox 90% ; ck1 15:36 BP 148 / 70 (auto/); ck1 15:36 Pulse 93 MON; Pulse Ox 90% ; ck1 15:45 BP 155 / 72 (auto/); ck1 15:45 Pulse 93 MON; Pulse Ox 93% ; ck1 16:00 BP 156 / 70 (auto/); ck1 16:01 Pulse 90 MON; Pulse Ox 92% ; ck1 16:15 BP 153 / 64 (auto/); ck1 16:16 Pulse 89 MON; Pulse Ox 91% ; ck1 16:30 BP 142 / 64 (auto/); ck1 16:31 Pulse 88 MON; Pulse Ox 93% ; ck1 16:45 BP 142 / 93 (auto/); ck1 16:46 Pulse 89 MON; Pulse Ox 96% ; ck1 17:00 BP 154 / 72 (auto/); ck1 17:01 Pulse 85 MON; Pulse Ox 94% ; ck1 17:15 BP 134 / 74 (auto/); ck1 17:16 Pulse 86 MON; Pulse Ox 95% ; ck1 17:30 BP 143 / 71 (auto/); ck1 17:42 Pulse 89 MON; Pulse Ox 94% ; ck1 17:45 BP 157 / 68 (auto/); ck1 17:46 Pulse 87 MON; Pulse Ox 95% ; ck1 18:00 BP 146 / 78 (auto/); ck1 18:01 Pulse 85 MON; Pulse Ox 95% ; ck1 18:15 BP 160 / 85 (auto/); ck1 18:22 Pulse 90 MON; Pulse Ox 97% ; ck1 20:05 BP 145 / 81; Pulse 89; Resp 18; Temp 98.5(TE); Pulse Ox 95% on 4 lpm NC; Pain 0/10; nn1 14:10 Body Mass Index 23.08 (64.86 kg, 167.64 cm) sew MDM: 14:07 -Blood Culture (Adults Only), peripheral from different site, or from device/port/PICC sd1 etc. if present ordered. 14:07 [employer] Ambassador/Pulse Ox/q 15 min VS ordered. sd1 14:07 IV Saline Lock ordered. sd1 14:07 Oxygen at 4L/Min NC or Home dosage ordered. sd1 14:07 Rhythm Strip to chart ordered. sd1 14:08 -Blood Culture Ordered. EDMS 14:08 B-Type Natiuretic Peptide Ordered. EDMS 14:08 Basic Metabolic Profile Ordered. EDMS 14:08 CBC with Diff Ordered. EDMS 14:08 Cardiac Injury Profile Ordered. EDMS 14:08 Troponin Ordered. EDMS 14:08 Chest, 1 View Ordered. EDMS 14:08 ECG WITH READING ER PHYS+CARDIAG ordered. EDMS 14:14 Albuterol 2.5 mg Nebulizer once ordered. ke 14:14 Albuterol-Ipratropium 3 ml Inhalation once ordered. ke 14:14 Call Respiratory ordered. ke 14:14 Furosemide 40 mg IVP once ordered. ke 14:20 BLOOD CULTURES Ordered. EDMS 14:28 Call Respiratory complete. ck1 14:28 -Blood Culture (Adults Only), peripheral from different site, or from device/port/PICC ck1 etc. if present complete. 15:29 B-Type Natiuretic Peptide Reviewed. ke 15:29 CBC with Diff Reviewed. ke 15:29 Chest, 1 View Reviewed. ke 15:30 Accucheck hourly ordered. ke 15:30 Insulin Regular Human 10 units IVP once ordered. ke 15:46 Financial registration complete. gb 15:46 [place] [place] Payment Agreement was scanned into [employer] and attached to record. gb 15:49 Basic Metabolic Profile Reviewed. ke 15:49 Cardiac Injury Profile Reviewed. ke 15:49 Troponin Reviewed. ke 17:02 RENAL US Ordered. EDMS 17:03 ECHOCARD,DOPPLER/COLOR FLOW ordered. EDMS 17:03 URINALYSIS Ordered. EDMS 17:03 SODIUM,RANDOM URINE Ordered. EDMS 17:03 CHLORIDE,RANDOM URINE Ordered. EDMS 17:04 POTASSIUM,RANDOM URINE Ordered. EDMS 17:04 LACTIC ACID LEVEL, LACTATE Ordered. EDMS 17:04 C REACTIVE PROTEIN QUANTITATIV Ordered. EDMS 17:04 ERYTHROCYTE SEDIMENTATION RATE Ordered. EDMS 17:04 URINE STREP PNEUMONIAE ANTIGEN Ordered. EDMS 17:04 LEGIONELLA ANTIGEN URINE Ordered. EDMS 17:04 MAGNESIUM LEVEL Ordered. EDMS 17:04 THYROID STIMULATING HORMONE Ordered. EDMS 17:05 BASIC METABOLIC PROFILE Ordered. EDMS 17:05 HEMOGLOBIN A1C Ordered. EDMS 17:05 CARDIAC MARKER PANEL Ordered. EDMS 17:05 URINE CULTURE Ordered. EDMS 17:05 SPUTUM CULTURE AND GRAM STAIN Ordered. EDMS 17:05 INFLUENZA A&B RAPID ANTIGEN Ordered. EDMS 17:10 PHYSICAL THERAPY EVAL & TREAT ordered. EDMS 17:10 CONSISTENT CARBOHYDRATES ordered. EDMS 17:27 Admission / Observation Status ordered. EDMS 17:53 Fingerstick Blood Sugar Ordered. EDMS 18:52 LIVER PROFILE Ordered. EDMS 19:01 CREATININE,RANDOM URINE Ordered. EDMS 19:01 TOTAL PROTEIN,RANDOM URINE Ordered. EDMS 19:31 BRAIN NATIURETIC PEPTIDE Ordered. EDMS 19:31 CBC WITH DIFFERENTIAL Ordered. EDMS 19:31 CARDIAC RISK PROFILE Ordered. EDMS 19:31 CARDIAC MARKER PANEL Ordered. EDMS 19:31 IRON (FE) Ordered. EDMS 19:31 TOTAL IRON BINDING CAPACIT Ordered. EDMS 19:31 FERRITIN Ordered. EDMS 19:31 VITAMIN B12 LEVEL Ordered. EDMS 19:31 FOLATE Ordered. EDMS 20:13 LACTIC ACID LEVEL, LACTATE Ordered. EDMS 21:11 T-Sheet-- Draft Copy was scanned into [employer] and attached to record. klr Point of Care Testing: Blood Glucose: 16:33 Blood Glucose: 344 mg/dL; ck1 17:40 Blood Glucose: 296 mg/dL; ck1 Ranges: Administered Medications: 14:23 Drug: Furosemide 40 mg [furosemide 10 mg/mL injection solution (4 mL)] Route: IVP; jjr Site: left forearm; 14:32 Drug: Albuterol 2.5 mg [albuterol sulfate 2.5 mg/0.5 mL solution for nebulization (0.5 js11 mL)] Route: Nebulizer; 14:32 Drug: Albuterol-Ipratropium 3 ml [ipratropium-albuterol 0.5 mg-3 mg(2.5 mg base)/3 mL js11 nebulization soln (3 mL)] Route: Inhalation; 15:40 Drug: Insulin Regular Human 10 units [insulin regular human 100 unit/mL injection ck1 solution (0.1 mL)] {Co-Signature: ttb (Vale Pop RN).} Route: IVP; Site: left forearm; Signatures: Dispatcher [employer] EDMS Macy Gibson MD MD sd1 Cece HC, ORAL Baird RN daq Barnhardt, Romelia, Reg Reg gb Mike Meneses, P[employer] OPERATOR PAPER AND PULP MILL OPERATOR ke Senait Lombardo,RN RN ck1 Samantha Guillen RN RN Ninoska Suarez RN RN nn1 Suad Brown Jordan js11 Vale Pop RN ttb The chart was reviewed and I authenticate all verbal orders and agree with the evaluation and treatment provided.Corrections: (The following items were deleted from the chart) 18:55 18:35 LIVER PROFILE ordered. EDMS EDMS 19:01 17:04 TOTAL PROTEIN,RANDOM URINE ordered. EDMS EDMS 19:01 17:04 CREATININE,RANDOM URINE ordered. EDMS EDMS Attachments: 15:46 [facility] Payment Agreement gb 21:11 T-Sheet-- Draft Copy klr Chart Complete MTDD
--- NOTE | 2016-10-23 14:03 | EDDOCDS ---
Nurse's Notes [facility] Name: Claudia Miranda Age: 86 yrs Sex: Female : 1930 Arrival Date: 10/20/2016 Time: 14:05 Bed 1 Private MD: Diagnosis: Hyperglycemia, unspecified;Acute combined systolic (congestive) and diastolic (congestive) heart failure;Hypoxemia Presentation: 10/20 14:06 Presenting complaint: EMS states: increasing SOB over past week 84% on RA, given duo jjr neb followed by albuterol, visiting from [place], FSBS 432. Adult Sepsis Screening: The patient does not have new or worsening altered mentation. Patient has a respiratory rate of greater than or equal to 22 (1 point). Systolic blood pressure is greater than 100. Patient has a qSOFA score of 1- Negative Sepsis Screen. Suicide/Homicide risk assessment- the patient denies having any suicidal and/or homicidal ideations and does not present with any other emotional, behavioral or mental health complaints. 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 Transition of care: patient was not received from another setting of care. 14:06 Acuity: FELIX Level 3 jjr 14:06 Method Of Arrival: Ambulance jjr 14:15 Acuity level changed due to complexity of care. jjr 14:15 Acuity: FELIX Level 2 jjr Triage Assessment: 14:13 General: Appears ill, Behavior is appropriate for age. Pain: Location: right posterior jjr aspect of neck. Respiratory: Onset: The symptoms/episode began/occurred gradually, Airway is patent Respiratory effort is even, labored, with retractions, shallow, Respiratory pattern is tachypnea. Historical: - Allergies: no known allergies; - Home Meds: 1. simvastatin 40 mg Oral tab 1 tab once daily 2. glipizide 5 mg Oral tab 1 tab 2 times per day 3. metoprolol tartrate 50 mg Oral tab 1 tab 2 times per day 4. Onglyza 2.5 mg oral tab 1 tab once daily 5. metformin 750 mg oral Tb24 bid - PMHx: Diabetes - NIDDM: controlled; Hypertension; Hypercholesterolemia; - PSHx: none; - Social history: Smoking status: Patient states former smoker of tobacco. No barriers to communication noted, The patient speaks fluent Wolof. - Family history: Not pertinent. - : The pt / caregiver states he / she is not on anticoagulants. Home medication list is obtained from pill bottles. - Exposure Risk Screening:: None identified. Screenin:37 Screening information is obtained from the patient. Fall risk: At risk due to age, The ck1 following interventions are performed due to a positive Fall Risk Screen: Fall Risk is added to Special Handling on the patient Summary Screen. A Fall Risk Bracelet was applied to the patient. Side Rails are placed in the up position. A Call Millan is given with instruction to call for help when getting out of bed. Fall Alert bracelet is placed on the patient. Assistance ADL's: requires no assistance with activities of daily living. Abuse/DV Screen: The patient / caregiver reports he/she is: not in a situation that causes fear, pain or injury. Nutritional screening: No deficits noted. Advance Directives: Currently, there is no health care proxy. home support is adequate. Assessment: 14:37 General: Appears distressed, Behavior is appropriate for age, cooperative. Pain: Denies ck1 pain. Neurological: Level of Consciousness is awake, alert, obeys commands, Oriented to person, place, time. Cardiovascular: Rhythm is sinus tachycardia Chest pain is denied. Respiratory: Respiratory effort is labored, Respiratory pattern is symmetrical, Breath sounds with crackles bilaterally. GI: No deficits noted. Derm: Skin is pink, warm & dry. Musculoskeletal: No deficits noted. 15:40 General: Appears in no apparent distress, Behavior is appropriate for age, cooperative. ck1 Pain: Denies pain. Neurological: Level of Consciousness is awake, alert, obeys commands, Oriented to person, place, time. Cardiovascular: Rhythm is sinus rhythm Chest pain is denied. Respiratory: Respiratory effort is labored, Respiratory pattern is regular, symmetrical. GI: No deficits noted. Derm: Skin is pink, warm & dry. Musculoskeletal: Circulation, motion, and sensation intact Range of motion intact in all extremities. 16:40 Reassessment: Patient appears in no apparent distress at this time. ck1 17:40 General: Appears in no apparent distress, comfortable, Behavior is appropriate for age, ck1 cooperative. Pain: Denies pain. Neurological: Level of Consciousness is awake, alert, obeys commands, Oriented to person, place, time. Cardiovascular: Rhythm is sinus rhythm. Respiratory: Respiratory effort is unlabored, Respiratory pattern is regular, symmetrical. GI: No deficits noted. Derm: Skin is pink, warm & dry. 18:28 Reassessment: Patient appears in no apparent distress at this time. Patient denies pain ck1 at this time. Patient states feeling better. Patient states symptoms have improved. 19:10 General: Appears in no apparent distress, comfortable, to be sleeping. Behavior is nn1 appropriate for age, cooperative. Respiratory: Airway is patent Respiratory effort is even, unlabored, Respiratory pattern is regular, symmetrical. Derm: Skin is pink, warm & dry. 20:04 General: Appears in no apparent distress, comfortable, Behavior is appropriate for age, nn1 cooperative. Pain: Denies pain. Neurological: Level of Consciousness is awake, alert, obeys commands, Oriented to person, place, time. Respiratory: Airway is patent Respiratory effort is even, unlabored, Respiratory pattern is regular. Derm: Skin is pink, warm & dry. 20:05 Respiratory: Breath sounds with crackles bilaterally. nn1 Vital Signs: 14:10 BP 221 / 108; Pulse 96; Resp 26; Temp 97.4; Pulse Ox 83% on R/A; Weight 64.86 kg (M); sew Height 5 ft. 6 in. (167.64 cm); Pain 0/10; 14:11 BP 221 / 108 (auto/); ck1 14:11 Pulse 101 MON; Pulse Ox 85% ; ck1 14:14 Resp 36; jjr 14:35 BP 204 / 100 (auto/); ck1 14:36 Pulse 105 MON; Pulse Ox 96% ; ck1 14:45 BP 181 / 84 (auto/); ck1 14:45 Pulse 93 MON; Pulse Ox 93% ; ck1 15:15 BP 180 / 88 (auto/); ck1 15:16 Pulse 93 MON; Pulse Ox 90% ; ck1 15:34 BP 223 / 99 (auto/); ck1 15:34 Pulse 93 MON; Pulse Ox 90% ; ck1 15:36 BP 148 / 70 (auto/); ck1 15:36 Pulse 93 MON; Pulse Ox 90% ; ck1 15:45 BP 155 / 72 (auto/); ck1 15:45 Pulse 93 MON; Pulse Ox 93% ; ck1 16:00 BP 156 / 70 (auto/); ck1 16:01 Pulse 90 MON; Pulse Ox 92% ; ck1 16:15 BP 153 / 64 (auto/); ck1 16:16 Pulse 89 MON; Pulse Ox 91% ; ck1 16:30 BP 142 / 64 (auto/); ck1 16:31 Pulse 88 MON; Pulse Ox 93% ; ck1 16:45 BP 142 / 93 (auto/); ck1 16:46 Pulse 89 MON; Pulse Ox 96% ; ck1 17:00 BP 154 / 72 (auto/); ck1 17:01 Pulse 85 MON; Pulse Ox 94% ; ck1 17:15 BP 134 / 74 (auto/); ck1 17:16 Pulse 86 MON; Pulse Ox 95% ; ck1 17:30 BP 143 / 71 (auto/); ck1 17:42 Pulse 89 MON; Pulse Ox 94% ; ck1 17:45 BP 157 / 68 (auto/); ck1 17:46 Pulse 87 MON; Pulse Ox 95% ; ck1 18:00 BP 146 / 78 (auto/); ck1 18:01 Pulse 85 MON; Pulse Ox 95% ; ck1 18:15 BP 160 / 85 (auto/); ck1 18:22 Pulse 90 MON; Pulse Ox 97% ; ck1 20:05 BP 145 / 81; Pulse 89; Resp 18; Temp 98.5(TE); Pulse Ox 95% on 4 lpm NC; Pain 0/10; nn1 14:10 Body Mass Index 23.08 (64.86 kg, 167.64 cm) [facility] [place] Vitals: 14:10 Log In Time N/A - ambulance arrival. sew ED Course: 14:06 Patient visited by Judy Dixon, [employer]. deg 14:06 Senait Lombardo,RN is Primary Nurse. deg 14:06 Patient moved to Waiting deg 14:06 Patient moved to 1 deg 14:08 [facility]eses FNP [facility] ke 14:08 Triage Initiated jjr 14:09 Patient visited by Mike Meneses FNP. ke 14:09 Patient visited by Mike Meneses FNP. ke 14:13 Patient visited by Macy Leiva. sew 14:13 Pt greeted and oriented to ED. Patient advised of names of staff involved in care, sew location of call millan, wait times and NPO status. Accompanied by Family Member, Patient has correct armband on for positive identification. Placed in gown. Bed in low position. Call light in reach. Side rails up X2. Verbal reassurance given. Head of bed elevated. Assisted with dressing. Repositioned patient. helper coordinator on. Pulse ox on. NIBP on. 14:24 Patient visited by Nahum Feliciano. jml1 14:24 EKG done. (by ED staff). Reviewed by Mike MONTAGUE. jml1 14:28 B-Type Natiuretic Peptide Sent. ck1 14:28 Basic Metabolic Profile Sent. ck1 14:28 CBC with Diff Sent. ck1 14:28 Cardiac Injury Profile Sent. ck1 14:28 Troponin Sent. ck1 14:37 Patient visited by Senait Lombardo,ORAL. ck1 14:37 The patient / caregiver is instructed regarding the plan of care and ED course. ck1 14:37 BLOOD CULTURES Sent. ck1 14:37 -Blood Culture Sent. ck1 14:37 Inserted saline lock: 20 gauge in left forearm and blood collected. The patient ck1 tolerated the procedure well. 15:06 Patient visited by Mike Meneses FNP. ke 15:19 Chest, 1 View Returned. EDMS 15:27 Patient visited by Senait Lombardo,ORAL. ck1 15:28 No procedures done that require assistance. ck1 15:40 Patient visited by Senait Lombardo,ORAL. ck1 15:41 Patient visited by Senait Lombardo,ORAL. ck1 15:43 Patient name changed from Claudia\May\\S\Brege\S\ to Claudia\May\Genna\S\Brege. EDMS 15:46 [facility] Payment Agreement was scanned into StatusPage and attached to record. gb 15:56 Surjit Biswas is Hospitalizing Provider. ke 17:27 Patient moved to Ultrasound am10 17:47 Patient moved to 1 am10 18:14 Patient visited by Mariajose Mason PCA. rs6 18:14 Diet: Patient given regular meal. Tolerated well. rs6 18:39 RENAL US Returned. EDMS 18:51 Primary Nurse role handed off by Senait Lombardo,RN ck1 20:05 O2 via nasal cannula \T\ 4L/min. nn1 21:11 T-Sheet-- Draft Copy was scanned into StatusPage and attached to record. klr Administered Medications: 14:23 Drug: Furosemide 40 mg [furosemide 10 mg/mL injection solution (4 mL)] Route: IVP; jjr Site: left forearm; 14:32 Drug: Albuterol 2.5 mg [albuterol sulfate 2.5 mg/0.5 mL solution for nebulization (0.5 js11 mL)] Route: Nebulizer; 14:32 Drug: Albuterol-Ipratropium 3 ml [ipratropium-albuterol 0.5 mg-3 mg(2.5 mg base)/3 mL js11 nebulization soln (3 mL)] Route: Inhalation; 15:40 Drug: Insulin Regular Human 10 units [insulin regular human 100 unit/mL injection ck1 solution (0.1 mL)] {Co-Signature: ttb (Vale Pop RN).} Route: IVP; Site: left forearm; Point of Care Testing: Blood Glucose: 16:33 Blood Glucose: 344 mg/dL; ck1 17:40 Blood Glucose: 296 mg/dL; ck1 Ranges: RT: 14:32 Initial Med Neb Given as ordered Patient was instructed and evaluated on procedure js11 Patient tolerated procedure well without adverse effect. O2 via nasal cannula \T\ 4L/min. Respiratory: Breath sounds with rhonchi bilaterally. Order Results: Lab Order: B-Type Natiuretic Peptide; SPEC'M 10/20/16 14:25 Test: BRAIN NATRIURETIC PEPTIDE; Value: 773; Range: <100; Abnormal: Above high normal; Units: PG/ML; Status: F Lab Order: Basic Metabolic Profile; SPEC'M 10/20/16 14:25 Test: GLUCOSE, FASTING; Value: 460; Range: 83-110; Abnormal: Above upper panic limits; Units: MG/DL; Status: F Test: BLOOD UREA NITROGEN; Value: 29; Range: 7-18; Abnormal: Above high normal; Units: MG/DL; Status: F Test: CREATININE FOR GFR; Value: 1.76; Range: 0.55-1.02; Abnormal: Above high normal; Units: MG/DL; Status: F Test: GLOMERULAR FILTRATION RATE; Value: 29.1; Range: >32; Abnormal: Below low normal; Status: F Test: SODIUM LEVEL; Value: 134; Range: 136-145; Abnormal: Below low normal; Units: MEQ/L; Status: F Test: POTASSIUM SERUM; Value: 5.3; Range: 3.5-5.1; Abnormal: Above high normal; Units: MEQ/L; Status: F Test: CHLORIDE LEVEL; Value: 99; Range: 98-107; Units: MEQ/L; Status: F Test: CARBON DIOXIDE LEVEL; Value: 25; Range: 21-32; Units: MEQ/L; Status: F Test: ANION GAP; Value: 10; Range: 8-16; Units: MEQ/L; Status: F Test: CALCIUM LEVEL; Value: 8.3; Range: 8.8-10.2; Abnormal: Below low normal; Units: MG/DL; Status: F Test Note: ; Units are mL/min/1.73 m2 Chronic Kidney Disease Staging per NKF: Stage I & II GFR >=60 Normal to Mildly Decreased Stage III GFR 30-59 Moderately Decreased Stage IV GFR 15-29 Severely Decreased Stage V GFR <15 Very Little GFR Left ESRD GFR <15 on HOTEL ASSISTANT MANAGER Lab Order: CBC with Diff; SPEC'M 10/20/16 14:25 Test: WHITE BLOOD COUNT; Value: 9.9; Range: 4.0-10.0; Units: K/mm3; Status: F Test: RED BLOOD COUNT; Value: 4.15; Range: 4.00-5.40; Units: M/mm3; Status: F Test: HEMOGLOBIN; Value: 11.8; Range: 12.0-16.0; Abnormal: Below low normal; Units: g/dl; Status: F Test: HEMATOCRIT; Value: 38.0; Range: 36.0-47.0; Units: %; Status: F Test: MEAN CORPUSCULAR VOLUME; Value: 91.7; Range: 80.0-96.0; Units: fl; Status: F Test: MEAN CORPUSCULAR HEMOGLOBIN; Value: 28.5; Range: 27.0-33.0; Units: pg; Status: F Test: MEAN CORPUSCULAR HGB CONC; Value: 31.1; Range: 32.0-36.5; Abnormal: Below low normal; Units: g/dl; Status: F Test: RED CELL DISTRIBUTION WIDTH; Value: 13.0; Range: 11.5-14.5; Units: %; Status: F Test: PLATELET COUNT, AUTOMATED; Value: 298; Range: 150-450; Units: k/mm3; Status: F Test: NEUTROPHILS %; Value: 79.6; Range: 36.0-66.0; Abnormal: Above high normal; Units: %; Status: F Test: LYMPH %; Value: 15.5; Range: 24.0-44.0; Abnormal: Below low normal; Units: %; Status: F Test: MONO %; Value: 3.1; Range: 0.0-5.0; Units: %; Status: F Test: EOS %; Value: 0.2; Range: 0.0-3.0; Units: %; Status: F Test: BASO %; Value: 0.4; Range: 0.0-1.0; Units: %; Status: F Test: LARGE UNSTAINED CELL %; Value: 1.3; Range: 0.0-4.0; Units: %; Status: F Test: NEUTROPHILS #; Value: 7.9; Range: 1.8-7.7; Abnormal: Above high normal; Units: K/mm3; Status: F Test: LYMPH #; Value: 1.5; Range: 1.5-4.5; Units: K/mm3; Status: F Test: MONO #; Value: 0.3; Range: 0.0-0.8; Units: K/mm3; Status: F Test: EOS #; Value: 0.0; Range: 0.0-0.50; Units: K/mm3; Status: F Test: BASO #; Value: 0.0; Range: 0.0-0.2; Units: K/mm3; Status: F Test: LARGE UNSTAINED CELL #; Value: 0.1; Range: 0.0-0.4; Units: K/mm3; Status: F Lab Order: Cardiac Injury Profile; SPEC'M 10/20/16 14:25 Test: CPK CREATINE PHOSPHOKINASE; Value: 38; Range: 26-192; Units: U/L; Status: F Test: CK-MB VALUE MASS; Value: 1.3; Range: 0.0-3.6; Units: NG/ML; Status: F Test: MB/CK RELATIVE INDEX; Value: 3.42; Range: < OR =4; Status: F Test Note: ; DIAGNOSIS CRITERIA MMB ng/ml Relative Index (RI) NON-AMI < or = 5 N/A MEHTA ZONE > 5 < or = 4 AMI > 5 > 4 Lab Order: Troponin; [facility] 10/20/16 14:25 Test: TROPONIN I; Value: 0.05; Range: < 0.10; Units: NG/ML; Status: F Test Note: ; Troponin I Reference Interval for Cometa LOCI: 99th Percentile= 0.00-0.045 ng/ml Risk Stratification: <= 0.10 ng/ml Decreased Risk for Adverse Clinical Events. 0.10-1.50 ng/ml Increased Risk for Adverse Clinical Events. Evaluation of additional criterion and/or repeat testing in 2-6 hours is suggested to rule out myocardial damage. >= 1.50 ng/ml Indicative of Myocardial Injury. Lab Order: Fingerstick Blood Sugar; [facility] 10/20/16 16:31 Test: BEDSIDE GLUCOSE; Value: 344; Range: 83-110; Abnormal: Above high normal; Units: MG/DL; Status: F Lab Order: LACTIC ACID LEVEL, LACTATE; [facility] 10/20/16 18:44 Test: LACTIC ACID LEVEL, LACTATE; Value: 4.9; Range: 0.4-2.0; Abnormal: Above upper panic limits; Units: MMOL/L; Status: F Lab Order: C REACTIVE PROTEIN QUANTITATIV; [facility] 10/20/16 18:44 Test: C REACTIVE PROTEIN QUANTITATIV; Value: 8.79; Range: 0.00-0.30; Abnormal: Above high normal; Units: MG/DL; Status: F Lab Order: ERYTHROCYTE SEDIMENTATION RATE; [facility] 10/20/16 18:44 Test: ERYTHROCYTE SEDIMENTATION RATE; Value: 42; Range: 0-42; Units: mm/hr; Status: F Lab Order: MAGNESIUM LEVEL; [facility] 10/20/16 18:44 Test: MAGNESIUM LEVEL; Value: 2.0; Range: 1.8-2.4; Units: MG/DL; Status: F Lab Order: THYROID STIMULATING HORMONE; [facility] 10/20/16 18:44 Test: THYROID STIMULATING HORMONE; Value: 0.317; Range: 0.358-3.740; Abnormal: Below low normal; Units: uIU/ML; Status: F Lab Order: BASIC METABOLIC PROFILE; [facility] 10/20/16 18:44 Test: GLUCOSE, FASTING; Value: 335; Range: 83-110; Abnormal: Above high normal; Units: MG/DL; Status: F Test: BLOOD UREA NITROGEN; Value: 32; Range: 7-18; Abnormal: Above high normal; Units: MG/DL; Status: F Test: CREATININE FOR GFR; Value: 1.94; Range: 0.55-1.02; Abnormal: Above high normal; Units: MG/DL; Status: F Test: GLOMERULAR FILTRATION RATE; Value: 26.0; Range: >32; Abnormal: Below low normal; Status: F Test: SODIUM LEVEL; Value: 137; Range: 136-145; Units: MEQ/L; Status: F Test: POTASSIUM SERUM; Value: 4.6; Range: 3.5-5.1; Units: MEQ/L; Status: F Test: CHLORIDE LEVEL; Value: 99; Range: 98-107; Units: MEQ/L; Status: F Test: CARBON DIOXIDE LEVEL; Value: 24; Range: 21-32; Units: MEQ/L; Status: F Test: ANION GAP; Value: 14; Range: 8-16; Units: MEQ/L; Status: F Test: CALCIUM LEVEL; Value: 8.1; Range: 8.8-10.2; Abnormal: Below low normal; Units: MG/DL; Status: F Test Note: ; Units are mL/min/1.73 m2 Chronic Kidney Disease Staging per NKF: Stage I & II GFR >=60 Normal to Mildly Decreased Stage III GFR 30-59 Moderately Decreased Stage IV GFR 15-29 Severely Decreased Stage V GFR <15 Very Little GFR Left ESRD GFR <15 on HOTEL ASSISTANT MANAGER Lab Order: HEMOGLOBIN A1C; [facility] 10/20/16 18:44 Test: HEMOGLOBIN A1c; Value: 6.5; Range: 4.5-6.2; Abnormal: Above high normal; Units: %; Status: F Test: ESTIMATED AVERAGE GLUCOSE; Value: 140; Range: 60-110; Abnormal: Above high normal; Units: MG/DL; Status: F Lab Order: CARDIAC MARKER PANEL; [facility] 10/20/16 18:44 Test: CPK CREATINE PHOSPHOKINASE; Value: 44; Range: 26-192; Units: U/L; Status: F Test: CK-MB VALUE MASS; Value: 1.7; Range: 0.0-3.6; Units: NG/ML; Status: F Test: MB/CK RELATIVE INDEX; Value: 3.86; Range: < OR =4; Status: F Test: TROPONIN I; Value: 0.06; Range: < 0.10; Units: NG/ML; Status: F Test Note: ; DIAGNOSIS CRITERIA MMB ng/ml Relative Index (RI) NON-AMI < or = 5 N/A MEHTA ZONE > 5 < or = 4 AMI > 5 > 4 Lab Order: Fingerstick Blood Sugar; [facility] 10/20/16 17:45 Test: BEDSIDE GLUCOSE; Value: 296; Range: 83-110; Abnormal: Above high normal; Units: MG/DL; Status: F Lab Order: LIVER PROFILE; [facility] 10/20/16 18:44 Test: AST/SGOT; Value: 33; Range: 15-37; Units: U/L; Status: F Test: ALT/SGPT; Value: 43; Range: 12-78; Units: U/L; Status: F Test: ALKALINE PHOSPHATASE; Value: 157; Range: 45-117; Abnormal: Above high normal; Units: U/L; Status: F Test: BILIRUBIN,TOTAL; Value: 0.3; Range: 0.2-1.0; Units: MG/DL; Status: F Test: BILIRUBIN,DIRECT; Value: < 0.1; Range: 0.0-0.2; Units: MG/DL; Status: F Test: TOTAL PROTEIN; Value: 6.8; Range: 6.4-8.2; Units: GM/DL; Status: F Test: ALBUMIN; Value: 3.3; Range: 3.2-5.2; Units: GM/DL; Status: F Test: ALBUMIN/GLOBULIN RATIO; Value: 0.94; Range: 1.00-1.93; Abnormal: Below low normal; Status: F Radiology Order: Chest, 1 View Test: Chest, 1 View REASON FOR EXAMINATION: Shortness of Breath; Clinical: Shortness of breath.; ; Findings:; Cardiomegaly. Diffuse increased interstitial markings with indistinct pulmonary; vasculature and cephalization suggests pulmonary venous congestion and; interstitial edema. No obvious effusion. No pneumothorax. Mediastinum and; cardiac silhouette are within normal limits for portable technique. Skeletal; structures demonstrate age-related degenerative changes.; ; Impression:; Findings suggest pulmonary venous congestion and interstitial edema.; ; ; Signed by; Darwin Hanson MD 10/20/2016 02:33 P; Radiology Order: RENAL US Test: RENAL US REASON FOR EXAMINATION: acute kidney injury, chronic kidney disease? ; Clinical: Acute trauma with chronic medical renal disease.; ; Technique: Mehta scale evaluation of the kidneys using curved array transducer.; ; Findings:; ; The kidneys are essentially normal in contour size and echogenicity and reniform; shape without hydronephrosis, nephrolithiasis, cystic or renal mass lesion.; Right kidney measures 10.0 x 4.7 x 4.8 cm. Left kidney measures 8.8 x 3.5 x 3.5; cm. Bladder is incompletely distended and grossly normal by current evaluation.; Small left pleural effusion noted.; ; ; ; Impression:; ; Chronic medical Renal disease.; ; Small left pleural effusion.; ; No renal trauma/injury appreciated.; ; ; Signed by; Darwin Hanson MD 10/20/2016 06:04 P; Outcome: 15:57 Decision to Hospitalize by Provider. ke 20:04 Discharge Assessment: Patient awake, alert and oriented x 3. No cognitive and/or nn1 functional deficits noted. Patient verbalized understanding of disposition instructions. 20:04 Discharge Assessment: patient administered narcotics - no. The following High Risk nn1 Discharge criteria are identified: None. Admitted to PCU accompanied by nurse, accompanied by tech, via stretcher, with oxygen, on monitor, with chart. Condition: stable. No special radiology studies were completed. Admission hand-off: Report Faxed Fax receipt verified by ORAL Nix . Property :Personal belongings accompany Pt. 20:18 Patient left the ED. nn1 Signatures: Dispatcher [employer] EDJudy Redd, [employer] [place] Unit deg Romelia Morfin, Reg Reg gb Mike Meneses, MANAGER INPATIENT MANAGER INPATIENT Senait BrandonRN RN ck1 Fanny Graham Jessica, RN RN Yon Morton js11 Nahum Feliciano jml1 Leiva, Macy Mason, Mariajose, RUG CUTTER HELPER RUG CUTTER HELPER rs6 Ninoska Porter,RN RN nn1 Suad Brown RN ttb Chart Complete MTDD
--- NOTE | 2016-10-23 14:04 | EDDOCDS ---
Nurse's Notes [facility] Name: Claudia Miranda Age: 86 yrs Sex: Female : 1930 Arrival Date: 10/20/2016 Time: 14:05 Bed 1 Private MD: Diagnosis: Hyperglycemia, unspecified;Acute combined systolic (congestive) and diastolic (congestive) heart failure;Hypoxemia Presentation: 10/20 14:06 Presenting complaint: EMS states: increasing SOB over past week 84% on RA, given duo jjr neb followed by albuterol, visiting from [place], FSBS 432. Adult Sepsis Screening: The patient does not have new or worsening altered mentation. Patient has a respiratory rate of greater than or equal to 22 (1 point). Systolic blood pressure is greater than 100. Patient has a qSOFA score of 1- Negative Sepsis Screen. Suicide/Homicide risk assessment- the patient denies having any suicidal and/or homicidal ideations and does not present with any other emotional, behavioral or mental health complaints. 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 Transition of care: patient was not received from another setting of care. 14:06 Acuity: FELIX Level 3 jjr 14:06 Method Of Arrival: Ambulance jjr 14:15 Acuity level changed due to complexity of care. jjr 14:15 Acuity: FELIX Level 2 jjr Triage Assessment: 14:13 General: Appears ill, Behavior is appropriate for age. Pain: Location: right posterior jjr aspect of neck. Respiratory: Onset: The symptoms/episode began/occurred gradually, Airway is patent Respiratory effort is even, labored, with retractions, shallow, Respiratory pattern is tachypnea. Historical: - Allergies: no known allergies; - Home Meds: 1. simvastatin 40 mg Oral tab 1 tab once daily 2. glipizide 5 mg Oral tab 1 tab 2 times per day 3. metoprolol tartrate 50 mg Oral tab 1 tab 2 times per day 4. Onglyza 2.5 mg oral tab 1 tab once daily 5. metformin 750 mg oral Tb24 bid - PMHx: Diabetes - NIDDM: controlled; Hypertension; Hypercholesterolemia; - PSHx: none; - Social history: Smoking status: Patient states former smoker of tobacco. No barriers to communication noted, The patient speaks fluent Turkish. - Family history: Not pertinent. - : The pt / caregiver states he / she is not on anticoagulants. Home medication list is obtained from pill bottles. - Exposure Risk Screening:: None identified. Screenin:37 Screening information is obtained from the patient. Fall risk: At risk due to age, The ck1 following interventions are performed due to a positive Fall Risk Screen: Fall Risk is added to Special Handling on the patient Summary Screen. A Fall Risk Bracelet was applied to the patient. Side Rails are placed in the up position. A Call Millan is given with instruction to call for help when getting out of bed. Fall Alert bracelet is placed on the patient. Assistance ADL's: requires no assistance with activities of daily living. Abuse/DV Screen: The patient / caregiver reports he/she is: not in a situation that causes fear, pain or injury. Nutritional screening: No deficits noted. Advance Directives: Currently, there is no health care proxy. home support is adequate. Assessment: 14:37 General: Appears distressed, Behavior is appropriate for age, cooperative. Pain: Denies ck1 pain. Neurological: Level of Consciousness is awake, alert, obeys commands, Oriented to person, place, time. Cardiovascular: Rhythm is sinus tachycardia Chest pain is denied. Respiratory: Respiratory effort is labored, Respiratory pattern is symmetrical, Breath sounds with crackles bilaterally. GI: No deficits noted. Derm: Skin is pink, warm & dry. Musculoskeletal: No deficits noted. 15:40 General: Appears in no apparent distress, Behavior is appropriate for age, cooperative. ck1 Pain: Denies pain. Neurological: Level of Consciousness is awake, alert, obeys commands, Oriented to person, place, time. Cardiovascular: Rhythm is sinus rhythm Chest pain is denied. Respiratory: Respiratory effort is labored, Respiratory pattern is regular, symmetrical. GI: No deficits noted. Derm: Skin is pink, warm & dry. Musculoskeletal: Circulation, motion, and sensation intact Range of motion intact in all extremities. 16:40 Reassessment: Patient appears in no apparent distress at this time. ck1 17:40 General: Appears in no apparent distress, comfortable, Behavior is appropriate for age, ck1 cooperative. Pain: Denies pain. Neurological: Level of Consciousness is awake, alert, obeys commands, Oriented to person, place, time. Cardiovascular: Rhythm is sinus rhythm. Respiratory: Respiratory effort is unlabored, Respiratory pattern is regular, symmetrical. GI: No deficits noted. Derm: Skin is pink, warm & dry. 18:28 Reassessment: Patient appears in no apparent distress at this time. Patient denies pain ck1 at this time. Patient states feeling better. Patient states symptoms have improved. 19:10 General: Appears in no apparent distress, comfortable, to be sleeping. Behavior is nn1 appropriate for age, cooperative. Respiratory: Airway is patent Respiratory effort is even, unlabored, Respiratory pattern is regular, symmetrical. Derm: Skin is pink, warm & dry. 20:04 General: Appears in no apparent distress, comfortable, Behavior is appropriate for age, nn1 cooperative. Pain: Denies pain. Neurological: Level of Consciousness is awake, alert, obeys commands, Oriented to person, place, time. Respiratory: Airway is patent Respiratory effort is even, unlabored, Respiratory pattern is regular. Derm: Skin is pink, warm & dry. 20:05 Respiratory: Breath sounds with crackles bilaterally. nn1 Vital Signs: 14:10 BP 221 / 108; Pulse 96; Resp 26; Temp 97.4; Pulse Ox 83% on R/A; Weight 64.86 kg (M); sew Height 5 ft. 6 in. (167.64 cm); Pain 0/10; 14:11 BP 221 / 108 (auto/); ck1 14:11 Pulse 101 MON; Pulse Ox 85% ; ck1 14:14 Resp 36; jjr 14:35 BP 204 / 100 (auto/); ck1 14:36 Pulse 105 MON; Pulse Ox 96% ; ck1 14:45 BP 181 / 84 (auto/); ck1 14:45 Pulse 93 MON; Pulse Ox 93% ; ck1 15:15 BP 180 / 88 (auto/); ck1 15:16 Pulse 93 MON; Pulse Ox 90% ; ck1 15:34 BP 223 / 99 (auto/); ck1 15:34 Pulse 93 MON; Pulse Ox 90% ; ck1 15:36 BP 148 / 70 (auto/); ck1 15:36 Pulse 93 MON; Pulse Ox 90% ; ck1 15:45 BP 155 / 72 (auto/); ck1 15:45 Pulse 93 MON; Pulse Ox 93% ; ck1 16:00 BP 156 / 70 (auto/); ck1 16:01 Pulse 90 MON; Pulse Ox 92% ; ck1 16:15 BP 153 / 64 (auto/); ck1 16:16 Pulse 89 MON; Pulse Ox 91% ; ck1 16:30 BP 142 / 64 (auto/); ck1 16:31 Pulse 88 MON; Pulse Ox 93% ; ck1 16:45 BP 142 / 93 (auto/); ck1 16:46 Pulse 89 MON; Pulse Ox 96% ; ck1 17:00 BP 154 / 72 (auto/); ck1 17:01 Pulse 85 MON; Pulse Ox 94% ; ck1 17:15 BP 134 / 74 (auto/); ck1 17:16 Pulse 86 MON; Pulse Ox 95% ; ck1 17:30 BP 143 / 71 (auto/); ck1 17:42 Pulse 89 MON; Pulse Ox 94% ; ck1 17:45 BP 157 / 68 (auto/); ck1 17:46 Pulse 87 MON; Pulse Ox 95% ; ck1 18:00 BP 146 / 78 (auto/); ck1 18:01 Pulse 85 MON; Pulse Ox 95% ; ck1 18:15 BP 160 / 85 (auto/); ck1 18:22 Pulse 90 MON; Pulse Ox 97% ; ck1 20:05 BP 145 / 81; Pulse 89; Resp 18; Temp 98.5(TE); Pulse Ox 95% on 4 lpm NC; Pain 0/10; nn1 14:10 Body Mass Index 23.08 (64.86 kg, 167.64 cm) [facility]: 14:10 Log In Time N/A - ambulance arrival. sew ED Course: 14:06 Patient visited by Judy Dixon, Emergency Communications Operator. deg 14:06 Senait Lombardo,RN is Primary Nurse. deg 14:06 Patient moved to Waiting deg 14:06 Patient moved to 1 deg 14:08 [facility]. ke 14:08 Triage Initiated jjr 14:09 Patient visited by Mike Meneses FNP. ke 14:09 Patient visited by Mike Meneses FNP. ke 14:13 Patient visited by Macy Leiva. sew 14:13 Pt greeted and oriented to ED. Patient advised of names of staff involved in care, sew location of call millan, wait times and NPO status. Accompanied by Family Member, Patient has correct armband on for positive identification. Placed in gown. Bed in low position. Call light in reach. Side rails up X2. Verbal reassurance given. Head of bed elevated. Assisted with dressing. Repositioned patient. drug safety data management specialist on. Pulse ox on. NIBP on. 14:24 Patient visited by Nahum Feliciano. jml1 14:24 EKG done. (by ED staff). Reviewed by Mike MONTAGUE. jml1 14:28 B-Type Natiuretic Peptide Sent. ck1 14:28 Basic Metabolic Profile Sent. ck1 14:28 CBC with Diff Sent. ck1 14:28 Cardiac Injury Profile Sent. ck1 14:28 Troponin Sent. ck1 14:37 Patient visited by Senait Lombardo,ORAL. ck1 14:37 The patient / caregiver is instructed regarding the plan of care and ED course. ck1 14:37 BLOOD CULTURES Sent. ck1 14:37 -Blood Culture Sent. ck1 14:37 Inserted saline lock: 20 gauge in left forearm and blood collected. The patient ck1 tolerated the procedure well. 15:06 Patient visited by Mike Meneses FNP. ke 15:19 Chest, 1 View Returned. EDMS 15:27 Patient visited by Senait Lombardo,ORAL. ck1 15:28 No procedures done that require assistance. ck1 15:40 Patient visited by Senait Lombardo,ORAL. ck1 15:41 Patient visited by Senait Lombardo,ORAL. ck1 15:43 Patient name changed from Claudia\May\\S\Brege\S\ to Claudia\May\Genna\S\Brege. EDMS 15:46 [facility] Payment Agreement was scanned into Rees[employer] and attached to record. gb 15:56 Surjit Biswas is Hospitalizing Provider. ke 17:27 Patient moved to Ultrasound am10 17:47 Patient moved to 1 am10 18:14 Patient visited by Mariajose Mason PCA. rs6 18:14 Diet: Patient given regular meal. Tolerated well. rs6 18:39 RENAL US Returned. EDMS 18:51 Primary Nurse role handed off by Senait Lombardo,RN ck1 20:05 O2 via nasal cannula \T\ 4L/min. nn1 21:11 T-Sheet-- Draft Copy was scanned into Rees[employer] and attached to record. klr Administered Medications: 14:23 Drug: Furosemide 40 mg [furosemide 10 mg/mL injection solution (4 mL)] Route: IVP; jjr Site: left forearm; 14:32 Drug: Albuterol 2.5 mg [albuterol sulfate 2.5 mg/0.5 mL solution for nebulization (0.5 js11 mL)] Route: Nebulizer; 14:32 Drug: Albuterol-Ipratropium 3 ml [ipratropium-albuterol 0.5 mg-3 mg(2.5 mg base)/3 mL js11 nebulization soln (3 mL)] Route: Inhalation; 15:40 Drug: Insulin Regular Human 10 units [insulin regular human 100 unit/mL injection ck1 solution (0.1 mL)] {Co-Signature: ttb (Vale Pop RN).} Route: IVP; Site: left forearm; Point of Care Testing: Blood Glucose: 16:33 Blood Glucose: 344 mg/dL; ck1 17:40 Blood Glucose: 296 mg/dL; ck1 Ranges: RT: 14:32 Initial Med Neb Given as ordered Patient was instructed and evaluated on procedure js11 Patient tolerated procedure well without adverse effect. O2 via nasal cannula \T\ 4L/min. Respiratory: Breath sounds with rhonchi bilaterally. Order Results: Lab Order: B-Type Natiuretic Peptide; SPEC'M 10/20/16 14:25 Test: BRAIN NATRIURETIC PEPTIDE; Value: 773; Range: <100; Abnormal: Above high normal; Units: PG/ML; Status: F Lab Order: Basic Metabolic Profile; SPEC'M 10/20/16 14:25 Test: GLUCOSE, FASTING; Value: 460; Range: 83-110; Abnormal: Above upper panic limits; Units: MG/DL; Status: F Test: BLOOD UREA NITROGEN; Value: 29; Range: 7-18; Abnormal: Above high normal; Units: MG/DL; Status: F Test: CREATININE FOR GFR; Value: 1.76; Range: 0.55-1.02; Abnormal: Above high normal; Units: MG/DL; Status: F Test: GLOMERULAR FILTRATION RATE; Value: 29.1; Range: >32; Abnormal: Below low normal; Status: F Test: SODIUM LEVEL; Value: 134; Range: 136-145; Abnormal: Below low normal; Units: MEQ/L; Status: F Test: POTASSIUM SERUM; Value: 5.3; Range: 3.5-5.1; Abnormal: Above high normal; Units: MEQ/L; Status: F Test: CHLORIDE LEVEL; Value: 99; Range: 98-107; Units: MEQ/L; Status: F Test: CARBON DIOXIDE LEVEL; Value: 25; Range: 21-32; Units: MEQ/L; Status: F Test: ANION GAP; Value: 10; Range: 8-16; Units: MEQ/L; Status: F Test: CALCIUM LEVEL; Value: 8.3; Range: 8.8-10.2; Abnormal: Below low normal; Units: MG/DL; Status: F Test Note: ; Units are mL/min/1.73 m2 Chronic Kidney Disease Staging per NKF: Stage I & II GFR >=60 Normal to Mildly Decreased Stage III GFR 30-59 Moderately Decreased Stage IV GFR 15-29 Severely Decreased Stage V GFR <15 Very Little GFR Left ESRD GFR <15 on PULP DRIER Lab Order: CBC with Diff; SPEC'M 10/20/16 14:25 Test: WHITE BLOOD COUNT; Value: 9.9; Range: 4.0-10.0; Units: K/mm3; Status: F Test: RED BLOOD COUNT; Value: 4.15; Range: 4.00-5.40; Units: M/mm3; Status: F Test: HEMOGLOBIN; Value: 11.8; Range: 12.0-16.0; Abnormal: Below low normal; Units: g/dl; Status: F Test: HEMATOCRIT; Value: 38.0; Range: 36.0-47.0; Units: %; Status: F Test: MEAN CORPUSCULAR VOLUME; Value: 91.7; Range: 80.0-96.0; Units: fl; Status: F Test: MEAN CORPUSCULAR HEMOGLOBIN; Value: 28.5; Range: 27.0-33.0; Units: pg; Status: F Test: MEAN CORPUSCULAR HGB CONC; Value: 31.1; Range: 32.0-36.5; Abnormal: Below low normal; Units: g/dl; Status: F Test: RED CELL DISTRIBUTION WIDTH; Value: 13.0; Range: 11.5-14.5; Units: %; Status: F Test: PLATELET COUNT, AUTOMATED; Value: 298; Range: 150-450; Units: k/mm3; Status: F Test: NEUTROPHILS %; Value: 79.6; Range: 36.0-66.0; Abnormal: Above high normal; Units: %; Status: F Test: LYMPH %; Value: 15.5; Range: 24.0-44.0; Abnormal: Below low normal; Units: %; Status: F Test: MONO %; Value: 3.1; Range: 0.0-5.0; Units: %; Status: F Test: EOS %; Value: 0.2; Range: 0.0-3.0; Units: %; Status: F Test: BASO %; Value: 0.4; Range: 0.0-1.0; Units: %; Status: F Test: LARGE UNSTAINED CELL %; Value: 1.3; Range: 0.0-4.0; Units: %; Status: F Test: NEUTROPHILS #; Value: 7.9; Range: 1.8-7.7; Abnormal: Above high normal; Units: K/mm3; Status: F Test: LYMPH #; Value: 1.5; Range: 1.5-4.5; Units: K/mm3; Status: F Test: MONO #; Value: 0.3; Range: 0.0-0.8; Units: K/mm3; Status: F Test: EOS #; Value: 0.0; Range: 0.0-0.50; Units: K/mm3; Status: F Test: BASO #; Value: 0.0; Range: 0.0-0.2; Units: K/mm3; Status: F Test: LARGE UNSTAINED CELL #; Value: 0.1; Range: 0.0-0.4; Units: K/mm3; Status: F Lab Order: Cardiac Injury Profile; SPEC'M 10/20/16 14:25 Test: CPK CREATINE PHOSPHOKINASE; Value: 38; Range: 26-192; Units: U/L; Status: F Test: CK-MB VALUE MASS; Value: 1.3; Range: 0.0-3.6; Units: NG/ML; Status: F Test: MB/CK RELATIVE INDEX; Value: 3.42; Range: < OR =4; Status: F Test Note: ; DIAGNOSIS CRITERIA MMB ng/ml Relative Index (RI) NON-AMI < or = 5 N/A MEHTA ZONE > 5 < or = 4 AMI > 5 > 4 Lab Order: Troponin; [facility] 10/20/16 14:25 Test: TROPONIN I; Value: 0.05; Range: < 0.10; Units: NG/ML; Status: F Test Note: ; Troponin I Reference Interval for 99designs LOCI: 99th Percentile= 0.00-0.045 ng/ml Risk Stratification: <= 0.10 ng/ml Decreased Risk for Adverse Clinical Events. 0.10-1.50 ng/ml Increased Risk for Adverse Clinical Events. Evaluation of additional criterion and/or repeat testing in 2-6 hours is suggested to rule out myocardial damage. >= 1.50 ng/ml Indicative of Myocardial Injury. Lab Order: Fingerstick Blood Sugar; [facility] 10/20/16 16:31 Test: BEDSIDE GLUCOSE; Value: 344; Range: 83-110; Abnormal: Above high normal; Units: MG/DL; Status: F Lab Order: LACTIC ACID LEVEL, LACTATE; [facility] 10/20/16 18:44 Test: LACTIC ACID LEVEL, LACTATE; Value: 4.9; Range: 0.4-2.0; Abnormal: Above upper panic limits; Units: MMOL/L; Status: F Lab Order: C REACTIVE PROTEIN QUANTITATIV; [facility] 10/20/16 18:44 Test: C REACTIVE PROTEIN QUANTITATIV; Value: 8.79; Range: 0.00-0.30; Abnormal: Above high normal; Units: MG/DL; Status: F Lab Order: ERYTHROCYTE SEDIMENTATION RATE; [facility] 10/20/16 18:44 Test: ERYTHROCYTE SEDIMENTATION RATE; Value: 42; Range: 0-42; Units: mm/hr; Status: F Lab Order: MAGNESIUM LEVEL; [facility] 10/20/16 18:44 Test: MAGNESIUM LEVEL; Value: 2.0; Range: 1.8-2.4; Units: MG/DL; Status: F Lab Order: THYROID STIMULATING HORMONE; [facility] 10/20/16 18:44 Test: THYROID STIMULATING HORMONE; Value: 0.317; Range: 0.358-3.740; Abnormal: Below low normal; Units: uIU/ML; Status: F Lab Order: BASIC METABOLIC PROFILE; [facility] 10/20/16 18:44 Test: GLUCOSE, FASTING; Value: 335; Range: 83-110; Abnormal: Above high normal; Units: MG/DL; Status: F Test: BLOOD UREA NITROGEN; Value: 32; Range: 7-18; Abnormal: Above high normal; Units: MG/DL; Status: F Test: CREATININE FOR GFR; Value: 1.94; Range: 0.55-1.02; Abnormal: Above high normal; Units: MG/DL; Status: F Test: GLOMERULAR FILTRATION RATE; Value: 26.0; Range: >32; Abnormal: Below low normal; Status: F Test: SODIUM LEVEL; Value: 137; Range: 136-145; Units: MEQ/L; Status: F Test: POTASSIUM SERUM; Value: 4.6; Range: 3.5-5.1; Units: MEQ/L; Status: F Test: CHLORIDE LEVEL; Value: 99; Range: 98-107; Units: MEQ/L; Status: F Test: CARBON DIOXIDE LEVEL; Value: 24; Range: 21-32; Units: MEQ/L; Status: F Test: ANION GAP; Value: 14; Range: 8-16; Units: MEQ/L; Status: F Test: CALCIUM LEVEL; Value: 8.1; Range: 8.8-10.2; Abnormal: Below low normal; Units: MG/DL; Status: F Test Note: ; Units are mL/min/1.73 m2 Chronic Kidney Disease Staging per NKF: Stage I & II GFR >=60 Normal to Mildly Decreased Stage III GFR 30-59 Moderately Decreased Stage IV GFR 15-29 Severely Decreased Stage V GFR <15 Very Little GFR Left ESRD GFR <15 on PULP DRIER Lab Order: HEMOGLOBIN A1C; [facility] 10/20/16 18:44 Test: HEMOGLOBIN A1c; Value: 6.5; Range: 4.5-6.2; Abnormal: Above high normal; Units: %; Status: F Test: ESTIMATED AVERAGE GLUCOSE; Value: 140; Range: 60-110; Abnormal: Above high normal; Units: MG/DL; Status: F Lab Order: CARDIAC MARKER PANEL; [facility] 10/20/16 18:44 Test: CPK CREATINE PHOSPHOKINASE; Value: 44; Range: 26-192; Units: U/L; Status: F Test: CK-MB VALUE MASS; Value: 1.7; Range: 0.0-3.6; Units: NG/ML; Status: F Test: MB/CK RELATIVE INDEX; Value: 3.86; Range: < OR =4; Status: F Test: TROPONIN I; Value: 0.06; Range: < 0.10; Units: NG/ML; Status: F Test Note: ; DIAGNOSIS CRITERIA MMB ng/ml Relative Index (RI) NON-AMI < or = 5 N/A MEHTA ZONE > 5 < or = 4 AMI > 5 > 4 Lab Order: Fingerstick Blood Sugar; [facility] 10/20/16 17:45 Test: BEDSIDE GLUCOSE; Value: 296; Range: 83-110; Abnormal: Above high normal; Units: MG/DL; Status: F Lab Order: LIVER PROFILE; [facility] 10/20/16 18:44 Test: AST/SGOT; Value: 33; Range: 15-37; Units: U/L; Status: F Test: ALT/SGPT; Value: 43; Range: 12-78; Units: U/L; Status: F Test: ALKALINE PHOSPHATASE; Value: 157; Range: 45-117; Abnormal: Above high normal; Units: U/L; Status: F Test: BILIRUBIN,TOTAL; Value: 0.3; Range: 0.2-1.0; Units: MG/DL; Status: F Test: BILIRUBIN,DIRECT; Value: < 0.1; Range: 0.0-0.2; Units: MG/DL; Status: F Test: TOTAL PROTEIN; Value: 6.8; Range: 6.4-8.2; Units: GM/DL; Status: F Test: ALBUMIN; Value: 3.3; Range: 3.2-5.2; Units: GM/DL; Status: F Test: ALBUMIN/GLOBULIN RATIO; Value: 0.94; Range: 1.00-1.93; Abnormal: Below low normal; Status: F Radiology Order: Chest, 1 View Test: Chest, 1 View REASON FOR EXAMINATION: Shortness of Breath; Clinical: Shortness of breath.; ; Findings:; Cardiomegaly. Diffuse increased interstitial markings with indistinct pulmonary; vasculature and cephalization suggests pulmonary venous congestion and; interstitial edema. No obvious effusion. No pneumothorax. Mediastinum and; cardiac silhouette are within normal limits for portable technique. Skeletal; structures demonstrate age-related degenerative changes.; ; Impression:; Findings suggest pulmonary venous congestion and interstitial edema.; ; ; Signed by; Darwin Hanson MD 10/20/2016 02:33 P; Radiology Order: RENAL US Test: RENAL US REASON FOR EXAMINATION: acute kidney injury, chronic kidney disease? ; Clinical: Acute trauma with chronic medical renal disease.; ; Technique: Mehta scale evaluation of the kidneys using curved array transducer.; ; Findings:; ; The kidneys are essentially normal in contour size and echogenicity and reniform; shape without hydronephrosis, nephrolithiasis, cystic or renal mass lesion.; Right kidney measures 10.0 x 4.7 x 4.8 cm. Left kidney measures 8.8 x 3.5 x 3.5; cm. Bladder is incompletely distended and grossly normal by current evaluation.; Small left pleural effusion noted.; ; ; ; Impression:; ; Chronic medical Renal disease.; ; Small left pleural effusion.; ; No renal trauma/injury appreciated.; ; ; Signed by; Darwin Hanson MD 10/20/2016 06:04 P; Outcome: 15:57 Decision to Hospitalize by Provider. ke 20:04 Discharge Assessment: Patient awake, alert and oriented x 3. No cognitive and/or nn1 functional deficits noted. Patient verbalized understanding of disposition instructions. 20:04 Discharge Assessment: patient administered narcotics - no. The following High Risk nn1 Discharge criteria are identified: None. Admitted to PCU accompanied by nurse, accompanied by tech, via stretcher, with oxygen, on monitor, with chart. Condition: stable. No special radiology studies were completed. Admission hand-off: Report Faxed Fax receipt verified by ORAL Nix . Property :Personal belongings accompany Pt. 20:18 Patient left the ED. nn1 Signatures: Dispatcher [employer] EDJudy Redd, Emergency Communications Operator Unit deg Romelia Morfin, Reg Reg gb Mike Meneses, FRONT DESK OFFICER FRONT DESK OFFICER Senait BrandonRN RN ck1 Fanny Graham Jessica, RN RN Yon Morton js11 Nahum Feliciano jml1 Leiva, Macy Mason, Mariajose, SAP BOBJ DEVELOPER SAP BOBJ DEVELOPER rs6 Ninoska Porter,RN RN nn1 Suad Brown RN ttb Chart Complete MTDD
--- NOTE | 2016-10-23 14:04 | EDDOCDS ---
[facility]ation [facility] Name: Claudia Miranda Age: 86 yrs Sex: Female : 1930 Arrival Date: 10/20/2016 Time: 14:05 Bed 1 Private MD: Disposition: 10/20/16 15:57 Hospitalization ordered by Surjit Biswas for Inpatient Admission. Preliminary diagnosis are Hyperglycemia, unspecified, Acute combined systolic (congestive) and diastolic (congestive) heart failure, Hypoxemia. - Bed requested for PCU. - Status is Inpatient Admission. nn1 - Condition is Stable. - Problem is an ongoing problem. - Symptoms are unchanged. Historical: - Allergies: no known allergies; - Home Meds: 1. simvastatin 40 mg Oral tab 1 tab once daily 2. glipizide 5 mg Oral tab 1 tab 2 times per day 3. metoprolol tartrate 50 mg Oral tab 1 tab 2 times per day 4. Onglyza 2.5 mg oral tab 1 tab once daily 5. metformin 750 mg oral Tb24 bid - PMHx: Diabetes - NIDDM: controlled; Hypertension; Hypercholesterolemia; - PSHx: none; - Social history: Smoking status: Patient states former smoker of tobacco. No barriers to communication noted, The patient speaks fluent Citizen Of [place]. - Family history: Not pertinent. - : The pt / caregiver states he / she is not on anticoagulants. Home medication list is obtained from pill bottles. - Exposure Risk Screening:: None identified. Vital Signs: 10/20 14:10 BP 221 / 108; Pulse 96; Resp 26; Temp 97.4; Pulse Ox 83% on R/A; Weight 64.86 kg / sew 142.99 lbs (M); Height 5 ft. 6 in. (167.64 cm); Pain 0/10; 14:11 BP 221 / 108 (auto/); ck1 14:11 Pulse 101 MON; Pulse Ox 85% ; ck1 14:14 Resp 36; jjr 14:35 BP 204 / 100 (auto/); ck1 14:36 Pulse 105 MON; Pulse Ox 96% ; ck1 14:45 BP 181 / 84 (auto/); ck1 14:45 Pulse 93 MON; Pulse Ox 93% ; ck1 15:15 BP 180 / 88 (auto/); ck1 15:16 Pulse 93 MON; Pulse Ox 90% ; ck1 15:34 BP 223 / 99 (auto/); ck1 15:34 Pulse 93 MON; Pulse Ox 90% ; ck1 15:36 BP 148 / 70 (auto/); ck1 15:36 Pulse 93 MON; Pulse Ox 90% ; ck1 15:45 BP 155 / 72 (auto/); ck1 15:45 Pulse 93 MON; Pulse Ox 93% ; ck1 16:00 BP 156 / 70 (auto/); ck1 16:01 Pulse 90 MON; Pulse Ox 92% ; ck1 16:15 BP 153 / 64 (auto/); ck1 16:16 Pulse 89 MON; Pulse Ox 91% ; ck1 16:30 BP 142 / 64 (auto/); ck1 16:31 Pulse 88 MON; Pulse Ox 93% ; ck1 16:45 BP 142 / 93 (auto/); ck1 16:46 Pulse 89 MON; Pulse Ox 96% ; ck1 17:00 BP 154 / 72 (auto/); ck1 17:01 Pulse 85 MON; Pulse Ox 94% ; ck1 17:15 BP 134 / 74 (auto/); ck1 17:16 Pulse 86 MON; Pulse Ox 95% ; ck1 17:30 BP 143 / 71 (auto/); ck1 17:42 Pulse 89 MON; Pulse Ox 94% ; ck1 17:45 BP 157 / 68 (auto/); ck1 17:46 Pulse 87 MON; Pulse Ox 95% ; ck1 18:00 BP 146 / 78 (auto/); ck1 18:01 Pulse 85 MON; Pulse Ox 95% ; ck1 18:15 BP 160 / 85 (auto/); ck1 18:22 Pulse 90 MON; Pulse Ox 97% ; ck1 20:05 BP 145 / 81; Pulse 89; Resp 18; Temp 98.5(TE); Pulse Ox 95% on 4 lpm NC; Pain 0/10; nn1 14:10 Body Mass Index 23.08 (64.86 kg, 167.64 cm) sew MDM: 14:07 -Blood Culture (Adults Only), peripheral from different site, or from device/port/PICC sd1 etc. if present ordered. 14:07 Light Rail Signal Technician/Pulse Ox/q 15 min VS ordered. sd1 14:07 IV Saline Lock ordered. sd1 14:07 Oxygen at 4L/Min NC or Home dosage ordered. sd1 14:07 Rhythm Strip to chart ordered. sd1 14:08 -Blood Culture Ordered. EDMS 14:08 B-Type Natiuretic Peptide Ordered. EDMS 14:08 Basic Metabolic Profile Ordered. EDMS 14:08 CBC with Diff Ordered. EDMS 14:08 Cardiac Injury Profile Ordered. EDMS 14:08 Troponin Ordered. EDMS 14:08 Chest, 1 View Ordered. EDMS 14:08 ECG WITH READING ER PHYS+CARDIAG ordered. EDMS 14:14 Albuterol 2.5 mg Nebulizer once ordered. ke 14:14 Albuterol-Ipratropium 3 ml Inhalation once ordered. ke 14:14 Call Respiratory ordered. ke 14:14 Furosemide 40 mg IVP once ordered. ke 14:20 BLOOD CULTURES Ordered. EDMS 14:28 Call Respiratory complete. ck1 14:28 -Blood Culture (Adults Only), peripheral from different site, or from device/port/PICC ck1 etc. if present complete. 15:29 B-Type Natiuretic Peptide Reviewed. ke 15:29 CBC with Diff Reviewed. ke 15:29 Chest, 1 View Reviewed. ke 15:30 Accucheck hourly ordered. ke 15:30 Insulin Regular Human 10 units IVP once ordered. ke 15:46 Financial registration complete. gb 15:46 [facility] [place] was scanned into [employer]way and attached to record. gb 15:49 Basic Metabolic Profile Reviewed. ke 15:49 Cardiac Injury Profile Reviewed. ke 15:49 Troponin Reviewed. ke 17:02 RENAL US Ordered. EDMS 17:03 ECHOCARD,DOPPLER/COLOR FLOW ordered. EDMS 17:03 URINALYSIS Ordered. EDMS 17:03 SODIUM,RANDOM URINE Ordered. EDMS 17:03 CHLORIDE,RANDOM URINE Ordered. EDMS 17:04 POTASSIUM,RANDOM URINE Ordered. EDMS 17:04 LACTIC ACID LEVEL, LACTATE Ordered. EDMS 17:04 C REACTIVE PROTEIN QUANTITATIV Ordered. EDMS 17:04 ERYTHROCYTE SEDIMENTATION RATE Ordered. EDMS 17:04 URINE STREP PNEUMONIAE ANTIGEN Ordered. EDMS 17:04 LEGIONELLA ANTIGEN URINE Ordered. EDMS 17:04 MAGNESIUM LEVEL Ordered. EDMS 17:04 THYROID STIMULATING HORMONE Ordered. EDMS 17:05 BASIC METABOLIC PROFILE Ordered. EDMS 17:05 HEMOGLOBIN A1C Ordered. EDMS 17:05 CARDIAC MARKER PANEL Ordered. EDMS 17:05 URINE CULTURE Ordered. EDMS 17:05 SPUTUM CULTURE AND GRAM STAIN Ordered. EDMS 17:05 INFLUENZA A&B RAPID ANTIGEN Ordered. EDMS 17:10 PHYSICAL THERAPY EVAL & TREAT ordered. EDMS 17:10 CONSISTENT CARBOHYDRATES ordered. EDMS 17:27 Admission / Observation Status ordered. EDMS 17:53 Fingerstick Blood Sugar Ordered. EDMS 18:52 LIVER PROFILE Ordered. EDMS 19:01 CREATININE,RANDOM URINE Ordered. EDMS 19:01 TOTAL PROTEIN,RANDOM URINE Ordered. EDMS 19:31 BRAIN NATIURETIC PEPTIDE Ordered. EDMS 19:31 CBC WITH DIFFERENTIAL Ordered. EDMS 19:31 CARDIAC RISK PROFILE Ordered. EDMS 19:31 CARDIAC MARKER PANEL Ordered. EDMS 19:31 IRON (FE) Ordered. EDMS 19:31 TOTAL IRON BINDING CAPACIT Ordered. EDMS 19:31 FERRITIN Ordered. EDMS 19:31 VITAMIN B12 LEVEL Ordered. EDMS 19:31 FOLATE Ordered. EDMS 20:13 LACTIC ACID LEVEL, LACTATE Ordered. EDMS 21:11 T-Sheet-- Draft Copy was scanned into [employer]way and attached to record. klr Point of Care Testing: Blood Glucose: 16:33 Blood Glucose: 344 mg/dL; ck1 17:40 Blood Glucose: 296 mg/dL; ck1 Ranges: Administered Medications: 14:23 Drug: Furosemide 40 mg [furosemide 10 mg/mL injection solution (4 mL)] Route: IVP; jjr Site: left forearm; 14:32 Drug: Albuterol 2.5 mg [albuterol sulfate 2.5 mg/0.5 mL solution for nebulization (0.5 js11 mL)] Route: Nebulizer; 14:32 Drug: Albuterol-Ipratropium 3 ml [ipratropium-albuterol 0.5 mg-3 mg(2.5 mg base)/3 mL js11 nebulization soln (3 mL)] Route: Inhalation; 15:40 Drug: Insulin Regular Human 10 units [insulin regular human 100 unit/mL injection ck1 solution (0.1 mL)] {Co-Signature: ttb (Vale Pop RN).} Route: IVP; Site: left forearm; Signatures: Dispatcher [employer] EDMS Macy Gibson MD MD sd1 Cece HC, ORAL Baird RN daq Barnhardt, Romelia, Reg Reg gb Mike Meneses, STAFF WEAPONS OFFICER STAFF WEAPONS OFFICER ke Senait Lombardo,RN RN ck1 Samantha Guillen RN RN Ninoska Suarez RN RN nn1 Suad Brown Jordan js11 Vale Pop RN ttb The chart was reviewed and I authenticate all verbal orders and agree with the evaluation and treatment provided.Corrections: (The following items were deleted from the chart) 18:55 18:35 LIVER PROFILE ordered. EDMS EDMS 19:01 17:04 TOTAL PROTEIN,RANDOM URINE ordered. EDMS EDMS 19:01 17:04 CREATININE,RANDOM URINE ordered. EDMS EDMS Attachments: 15:46 [facility] Payment Agreement gb 21:11 T-Sheet-- Draft Copy klr Chart Complete MTDD
--- NOTE | 2016-10-23 14:04 | EDDOCDS ---
Physician Documentation [facility] Name: Claudia Miranda Age: 86 yrs Sex: Female : 1930 Arrival Date: 10/20/2016 Time: 14:05 Bed 1 Private MD: Disposition: 10/20/16 15:57 Hospitalization ordered by Surjit Biswas for Inpatient Admission. Preliminary diagnosis are Hyperglycemia, unspecified, Acute combined systolic (congestive) and diastolic (congestive) heart failure, Hypoxemia. - Bed requested for PCU. - Status is Inpatient Admission. nn1 - Condition is Stable. - Problem is an ongoing problem. - Symptoms are unchanged. Historical: - Allergies: no known allergies; - Home Meds: 1. simvastatin 40 mg Oral tab 1 tab once daily 2. glipizide 5 mg Oral tab 1 tab 2 times per day 3. metoprolol tartrate 50 mg Oral tab 1 tab 2 times per day 4. Onglyza 2.5 mg oral tab 1 tab once daily 5. metformin 750 mg oral Tb24 bid - PMHx: Diabetes - NIDDM: controlled; Hypertension; Hypercholesterolemia; - PSHx: none; - Social history: Smoking status: Patient states former smoker of tobacco. No barriers to communication noted, The patient speaks fluent [place] Citizen. - Family history: Not pertinent. - : The pt / caregiver states he / she is not on anticoagulants. Home medication list is obtained from pill bottles. - Exposure Risk Screening:: None identified. Vital Signs: 10/20 14:10 BP 221 / 108; Pulse 96; Resp 26; Temp 97.4; Pulse Ox 83% on R/A; Weight 64.86 kg / sew 142.99 lbs (M); Height 5 ft. 6 in. (167.64 cm); Pain 0/10; 14:11 BP 221 / 108 (auto/); ck1 14:11 Pulse 101 MON; Pulse Ox 85% ; ck1 14:14 Resp 36; jjr 14:35 BP 204 / 100 (auto/); ck1 14:36 Pulse 105 MON; Pulse Ox 96% ; ck1 14:45 BP 181 / 84 (auto/); ck1 14:45 Pulse 93 MON; Pulse Ox 93% ; ck1 15:15 BP 180 / 88 (auto/); ck1 15:16 Pulse 93 MON; Pulse Ox 90% ; ck1 15:34 BP 223 / 99 (auto/); ck1 15:34 Pulse 93 MON; Pulse Ox 90% ; ck1 15:36 BP 148 / 70 (auto/); ck1 15:36 Pulse 93 MON; Pulse Ox 90% ; ck1 15:45 BP 155 / 72 (auto/); ck1 15:45 Pulse 93 MON; Pulse Ox 93% ; ck1 16:00 BP 156 / 70 (auto/); ck1 16:01 Pulse 90 MON; Pulse Ox 92% ; ck1 16:15 BP 153 / 64 (auto/); ck1 16:16 Pulse 89 MON; Pulse Ox 91% ; ck1 16:30 BP 142 / 64 (auto/); ck1 16:31 Pulse 88 MON; Pulse Ox 93% ; ck1 16:45 BP 142 / 93 (auto/); ck1 16:46 Pulse 89 MON; Pulse Ox 96% ; ck1 17:00 BP 154 / 72 (auto/); ck1 17:01 Pulse 85 MON; Pulse Ox 94% ; ck1 17:15 BP 134 / 74 (auto/); ck1 17:16 Pulse 86 MON; Pulse Ox 95% ; ck1 17:30 BP 143 / 71 (auto/); ck1 17:42 Pulse 89 MON; Pulse Ox 94% ; ck1 17:45 BP 157 / 68 (auto/); ck1 17:46 Pulse 87 MON; Pulse Ox 95% ; ck1 18:00 BP 146 / 78 (auto/); ck1 18:01 Pulse 85 MON; Pulse Ox 95% ; ck1 18:15 BP 160 / 85 (auto/); ck1 18:22 Pulse 90 MON; Pulse Ox 97% ; ck1 20:05 BP 145 / 81; Pulse 89; Resp 18; Temp 98.5(TE); Pulse Ox 95% on 4 lpm NC; Pain 0/10; nn1 14:10 Body Mass Index 23.08 (64.86 kg, 167.64 cm) sew MDM: 14:07 -Blood Culture (Adults Only), peripheral from different site, or from device/port/PICC sd1 etc. if present ordered. 14:07 Survey Technologist/Pulse Ox/q 15 min VS ordered. sd1 14:07 IV Saline Lock ordered. sd1 14:07 Oxygen at 4L/Min NC or Home dosage ordered. sd1 14:07 Rhythm Strip to chart ordered. sd1 14:08 -Blood Culture Ordered. EDMS 14:08 B-Type Natiuretic Peptide Ordered. EDMS 14:08 Basic Metabolic Profile Ordered. EDMS 14:08 CBC with Diff Ordered. EDMS 14:08 Cardiac Injury Profile Ordered. EDMS 14:08 Troponin Ordered. EDMS 14:08 Chest, 1 View Ordered. EDMS 14:08 ECG WITH READING ER PHYS+CARDIAG ordered. EDMS 14:14 Albuterol 2.5 mg Nebulizer once ordered. ke 14:14 Albuterol-Ipratropium 3 ml Inhalation once ordered. ke 14:14 Call Respiratory ordered. ke 14:14 Furosemide 40 mg IVP once ordered. ke 14:20 BLOOD CULTURES Ordered. EDMS 14:28 Call Respiratory complete. ck1 14:28 -Blood Culture (Adults Only), peripheral from different site, or from device/port/PICC ck1 etc. if present complete. 15:29 B-Type Natiuretic Peptide Reviewed. ke 15:29 CBC with Diff Reviewed. ke 15:29 Chest, 1 View Reviewed. ke 15:30 Accucheck hourly ordered. ke 15:30 Insulin Regular Human 10 units IVP once ordered. ke 15:46 Financial registration complete. gb 15:46 [facility] [place] Payment Agreement was scanned into [employer] and attached to record. gb 15:49 Basic Metabolic Profile Reviewed. ke 15:49 Cardiac Injury Profile Reviewed. ke 15:49 Troponin Reviewed. ke 17:02 RENAL US Ordered. EDMS 17:03 ECHOCARD,DOPPLER/COLOR FLOW ordered. EDMS 17:03 URINALYSIS Ordered. EDMS 17:03 SODIUM,RANDOM URINE Ordered. EDMS 17:03 CHLORIDE,RANDOM URINE Ordered. EDMS 17:04 POTASSIUM,RANDOM URINE Ordered. EDMS 17:04 LACTIC ACID LEVEL, LACTATE Ordered. EDMS 17:04 C REACTIVE PROTEIN QUANTITATIV Ordered. EDMS 17:04 ERYTHROCYTE SEDIMENTATION RATE Ordered. EDMS 17:04 URINE STREP PNEUMONIAE ANTIGEN Ordered. EDMS 17:04 LEGIONELLA ANTIGEN URINE Ordered. EDMS 17:04 MAGNESIUM LEVEL Ordered. EDMS 17:04 THYROID STIMULATING HORMONE Ordered. EDMS 17:05 BASIC METABOLIC PROFILE Ordered. EDMS 17:05 HEMOGLOBIN A1C Ordered. EDMS 17:05 CARDIAC MARKER PANEL Ordered. EDMS 17:05 URINE CULTURE Ordered. EDMS 17:05 SPUTUM CULTURE AND GRAM STAIN Ordered. EDMS 17:05 INFLUENZA A&B RAPID ANTIGEN Ordered. EDMS 17:10 PHYSICAL THERAPY EVAL & TREAT ordered. EDMS 17:10 CONSISTENT CARBOHYDRATES ordered. EDMS 17:27 Admission / Observation Status ordered. EDMS 17:53 Fingerstick Blood Sugar Ordered. EDMS 18:52 LIVER PROFILE Ordered. EDMS 19:01 CREATININE,RANDOM URINE Ordered. EDMS 19:01 TOTAL PROTEIN,RANDOM URINE Ordered. EDMS 19:31 BRAIN NATIURETIC PEPTIDE Ordered. EDMS 19:31 CBC WITH DIFFERENTIAL Ordered. EDMS 19:31 CARDIAC RISK PROFILE Ordered. EDMS 19:31 CARDIAC MARKER PANEL Ordered. EDMS 19:31 IRON (FE) Ordered. EDMS 19:31 TOTAL IRON BINDING CAPACIT Ordered. EDMS 19:31 FERRITIN Ordered. EDMS 19:31 VITAMIN B12 LEVEL Ordered. EDMS 19:31 FOLATE Ordered. EDMS 20:13 LACTIC ACID LEVEL, LACTATE Ordered. EDMS 21:11 T-Sheet-- Draft Copy was scanned into [employer] and attached to record. klr Point of Care Testing: Blood Glucose: 16:33 Blood Glucose: 344 mg/dL; ck1 17:40 Blood Glucose: 296 mg/dL; ck1 Ranges: Administered Medications: 14:23 Drug: Furosemide 40 mg [furosemide 10 mg/mL injection solution (4 mL)] Route: IVP; jjr Site: left forearm; 14:32 Drug: Albuterol 2.5 mg [albuterol sulfate 2.5 mg/0.5 mL solution for nebulization (0.5 js11 mL)] Route: Nebulizer; 14:32 Drug: Albuterol-Ipratropium 3 ml [ipratropium-albuterol 0.5 mg-3 mg(2.5 mg base)/3 mL js11 nebulization soln (3 mL)] Route: Inhalation; 15:40 Drug: Insulin Regular Human 10 units [insulin regular human 100 unit/mL injection ck1 solution (0.1 mL)] {Co-Signature: ttb (Vale Pop RN).} Route: IVP; Site: left forearm; Signatures: Dispatcher [employer] EDMS Macy Gibson MD MD sd1 Cece HC, ORAL Baird RN daq Barnhardt, Romelia, Reg Reg gb Mike Meneses, BRICK LAYER BRICK LAYER ke Senait Lombardo,RN RN ck1 Samantha Guillen RN RN Ninoska Suarez RN RN nn1 Suad Brown Jordan js11 Vale Pop RN ttb The chart was reviewed and I authenticate all verbal orders and agree with the evaluation and treatment provided.Corrections: (The following items were deleted from the chart) 18:55 18:35 LIVER PROFILE ordered. EDMS EDMS 19:01 17:04 TOTAL PROTEIN,RANDOM URINE ordered. EDMS EDMS 19:01 17:04 CREATININE,RANDOM URINE ordered. EDMS EDMS Attachments: 15:46 [facility] Payment Agreement gb 21:11 T-Sheet-- Draft Copy klr Chart Complete MTDD
--- NOTE | 2016-10-23 15:27 | REP ---
CHEST, TWO VIEWS: Two views of the chest are performed. I see no acute infiltrate. The previously noted findings of vascular congestion and interstitial edema appear to have resolved. I do not see significant pleural fluid. The heart appears normal in size. There is calcified tortuous aorta. Mediastinal silhouette is unremarkable. There are mild degenerative changes of the spine. IMPRESSION: No acute infiltrate. Previously noted findings of vascular congestion and interstitial edema appear to have essentially resolved. Signed by Dean Mehta MD 10/23/2016 03:29 P
--- NOTE | 2016-10-23 15:33 | REP ---
V/Q SCAN: Following the intravenous administration of 5.4 mCi of technetium 99m tagged MAA and the inhalation of 1.0 mCi of technetium 99m DTPA aerosol multiple images of the lung coker are obtained in various projections. Small scattered peripheral subsegmental perfusion defects are seen bilaterally with matching larger ventilation defects. Right hemidiaphragm is elevated. I do not see areas of significant V/Q mismatch. IMPRESSION: Low probability of pulmonary embolism. Signed by Dean Mehta MD 10/24/2016 05:05 P
[2016-10-23] MEDS: LEVEMIR (INSULIN DETEMIR) 1 UNITS/0.01ML SC SCH (20:42)
[2016-10-23] MEDS: APIXABAN 2.5 MG TAB (ELIQUIS) PO SCH (20:42)
[2016-10-23] MEDS: ASPIRIN 81 MG CHEW TABLET PO SCH (20:42)
[2016-10-23] MEDS: SIMVASTATIN 40 MG TAB PO SCH (20:42)
[2016-10-24] MEDS ORDERED: SLF 3 ML SYR IV PRN (00:30)
[2016-10-24] MEDS: SLF 3 ML SYR IV SCH ×3 (05:04→22:16)
[2016-10-24 05:21] VITALS: BP 121/71
[2016-10-24 05:54] LABS: BASO % 0.6 % (0.0-1.0); EOS # 0.1 K/mm3 (0.0-0.50); LARGE UNSTAINED CELL # 0.1 K/mm3 (0.0-0.4); LARGE UNSTAINED CELL % 2.8 % (0.0-4.0); LYMPH # 1.5 K/mm3 (1.5-4.5); LYMPH % 34.4 % (24.0-44.0); MEAN CORPUSCULAR HEMOGLOBIN 28.8 pg (27.0-33.0); MEAN CORPUSCULAR HGB CONC 33.4 g/dl (32.0-36.5); MONO # 0.4 K/mm3 (0.0-0.8); MONO % 9.2 % (0.0-5.0); NEUTROPHILS # 2.3 K/mm3 (1.8-7.7); PLATELET COUNT, AUTOMATED 296 k/mm3 (150-450); RED CELL DISTRIBUTION WIDTH 12.6 % (11.5-14.5); WHITE BLOOD COUNT 4.4 K/mm3 (4.0-10.0)
[2016-10-24 06:00] LABS: CALCIUM LEVEL 8.7 MG/DL (8.8-10.2); CREATININE FOR GFR 1.83 MG/DL (0.55-1.02); GLOMERULAR FILTRATION RATE 27.8 (>32); MAGNESIUM LEVEL 1.9 MG/DL (1.8-2.4); POTASSIUM SERUM 4.3 MEQ/L (3.5-5.1)
[2016-10-24 08:00] VITALS: BP 141/78
[2016-10-24] MEDS: IPRATROPIUM 0.5MG/ALBUTEROL 2.5MG INH SOL UD 3ML (DUONEB)(J7620) NEB SCH ×2 (08:00→16:00)
[2016-10-24] MEDS: BUDESONIDE 0.5 MG/2 ML INHALATION SUSPENSION INH SCH ×2 (08:00→20:00)
[2016-10-24] MEDS: cefTRIAXone SOD 1 GM in D5W MINI-BAG PLUS 50 ML IV SCH (08:16)
[2016-10-24] MEDS: METOPROLOL TART 50 MG TAB PO SCH ×3 (08:17→20:40)
[2016-10-24] MEDS: HumaLOG INSULIN (NovoLOG) PER UNIT SC SCH ×4 (08:17→20:41)
[2016-10-24] MEDS: APIXABAN 2.5 MG TAB (ELIQUIS) PO SCH ×2 (08:17→20:40)
[2016-10-24] MEDS: DOCUSATE SODIUM 100 MG CAP PO SCH ×2 (08:17→20:40)
--- NOTE | 2016-10-24 08:28 | IPN ---
DATE: 10/24/2016 Mrs. Miranda tells me that she is feeling better. She still has some cough and some irritation in her throat, but reports substantial improvement. She does not seem to be much short of breath and she feels that her breathing has improved as well. Denies any chest discomfort and there is no sensation of palpitations. She remains in atrial fibrillation and the rate is not well controlled. She has average heart rate of approximately 110, but occasionally it gets up to 150. Review of telemetry strips also reveals frequent episodes of nonsustained ventricular tachycardia, usually 4 or 5 beats in a row. No sustained episodes. All of this is asymptomatic. Vital signs this morning - blood pressure 121/71 and heart rate 105. She is afebrile. Saturation is 95% on room air. Fluid balance yesterday was approximately equal. Weight is not 58.9 kg. She is alert and oriented and appropriate. Her jugular venous pulse (JVP) is not up. Lungs still reveal occasional rhonchi and wheezes, but I feel that her air movement is markedly improved since yesterday. Heart exam with irregularly irregular rhythm. No gallop or rub. Abdomen is soft, nontender. There is no peripheral edema. No skin lesions. Laboratory-gorman, basic metabolic panel with potassium 4.3, BUN 42, creatinine 1.8, glucose 167 and BNP is down to 531. She had a V/Q scan yesterday that was felt to be a low probability for pulmonary embolism. ASSESSMENT/PLAN: Mrs. Miranda is an 86-year-old female who has no prior history of cardiovascular disease. She came with symptoms of bronchitis of probably at least a week or so, eventually associated with shortness of breath and evidence for diastolic congestive heart failure. During her hospitalization, she also developed atrial fibrillation with rapid ventricular response and so far has not been well rate controlled. I do suspect that she probably has paroxysmal atrial fibrillation that was exacerbated by her upper respiratory infection and led to congestive heart failure due to poorly controlled rate. At this point, she was started on anticoagulation with Eliquis. I am going to reintroduce amiodarone in oral form with the idea to establish rhythm control. I am thinking that flecainide probably would be a better choice in the long run, but in the short run, she is in heart failure. She is still not well rate controlled so I think that the amiodarone will help us on both fronts. I do believe that there is a good likelihood that she will spontaneously restore sinus mechanism, but if she does not then we can consider elective cardioversion on outpatient basis. As far as congestive heart failure is concerned, she seems to be progressively improving. She is not getting much of diuretics, but I believe that it is likely that with just rate control this will improve spontaneously and it already has as is evidenced by her improving BNP in spite of not improving renal function.
[2016-10-24] MEDS: AMIODARONE 200 MG TAB (PACERONE) PO SCH ×2 (09:23→20:40)
[2016-10-24] MEDS ORDERED: ELIQ2.5T PO ×2 (11:19→12:54)
[2016-10-24] MEDS: methylPREDNISolone INJ 125 MG/2 ML VIAL (J2930) IV SCH ×2 (11:25→22:00)
[2016-10-24 12:00] VITALS: BP 142/62
--- NOTE | 2016-10-24 12:13 | IPN ---
DATE OF SERVICE: 10/24/2016 TIME PATIENT SEEN: 8:10 a.m. Patient has been seen and examined at the bedside. No acute events overnight. The patient's heart rate continues to be around 100; however, patient herself denies any chest pain, trouble breathing. She still has a cough and some congestion. Otherwise, denies any fever or chills, any abdominal pain, nausea, vomiting, diarrhea, constipation, any problem with urination. Denies any other current new complaints. PHYSICAL EXAMINATION: VITAL SIGNS: Temperature 96.2, pulse 94, respirations 18, blood pressure 141/78 , oxygen saturation 96% on air. GENERAL: Patient is thin-looking elderly female who was alert, awake and oriented times three. She does not appear to be in distress. Resting comfortably in bed, with head elevated at a 45 degree angle. HEENT: Normocephalic, atraumatic. Extraocular motor intact. Mucosa moist. NECK: Supple. No neck lymphadenopathy. CARDIOVASCULAR: Irregularly irregular. S1, S2. Patient does have a 2/6 systolic heart murmur; however, it was somewhat difficult to auscultate due to wheezing. LUNGS: Moderate wheezing bilaterally. ABDOMEN: Positive bowel sounds. Soft, nontender. No peritoneal signs. No ecchymosis. EXTREMITIES: No edema, clubbing or cyanosis. SKIN: Warm and dry. NEUROLOGIC: Cranial nerves II-XII intact. No focal deficits. LABORATORIES: WBC 4.4, hemoglobin 13.2, hematocrit 39.6, with a platelet count of 296, MCV86. Sodium 139, potassium 4.3, chloride 97, bicarbonate 36, BUN 42, creatinine 1.83, slightly worse than compared to yesterday 1.64, GFR 27.8, glucose 167, calcium 8.7, magnesium 1.9. C-reactive protein (CRP) this morning 3.16, improved compared to the day before, 5.92 Brain natriuretic peptide (BNP) continued to trend down. Today it is 531; yesterday it was 843. Accu-Chek glucose was 271, 274, 175, and 212. Patient's urine Legionella and Streptococcus pneumoniae are both pending. Patient's sputum culture and gram stain shows yeast-like organism. Also, moderate positive cocci in pairs, chains and clusters. Urine culture shows no growth after three days. Blood culture shows no growth after four days. The patient also has V/Q lung scan yesterday. It shows low probability for pulmonary embolism. ASSESSMENT AND PLAN: An 86-year-old female with past medical history of hypertension, dyslipidemia, type 2 diabetes, possible chronic obstructive pulmonary disease (COPD), presented with dyspnea, cough, shortness of breath, and hypoxia. 1. Hypoxia. Likely secondary to community-acquired pneumonia versus atrial fibrillation versus congestive heart failure (CHF) versus pulmonary edema. Pulmonary edema has been ruled out with a negative V/Q scan of the lungs. Patient's Lasix has been discontinued. Dr. Orourke and Dr. Felipe have been consulted. Recommended by mouth amiodarone. At this point, patient's antibiotic, azithromycin, has been discontinued. Continue Rocephin. Will continue to follow sputum culture and continue to monitor patient. 2. Possible chronic obstructive pulmonary disease (COPD) exacerbation. Patient denies any COPD history. Currently on DuoNebs; however, no steroids. We will start patient on an inhaled steroid for now and continue to monitor the patient. 3. Possible pulmonary embolism has been ruled out with a negative V/Q scan. 4. Atrial fibrillation with rapid ventricular response. Cardiology has been consulted. We will follow Dr. Felipe's recommendation. Continue oral amiodarone. Considering flecainide for long-term management. 5. Possible community-acquired pneumonia on CT of the chest. We will continue Rocephin. CRP is trending down. 6. Questionable decompensated heart failure shown on echocardiogram of the heart. Continue to monitor. Lasix has been discontinued today. 7. History of hypertension. Continue metoprolol. 8. Possible acute on chronic kidney disease with unknown baseline. Renal ultrasound does show medical renal disease. Patient's creatinine is getting slightly worse. 9. Bpy-tkjngks-tkdjzjddm type 2 diabetes. Continue insulin sliding scale. A1c is6.5. Continue Levemir and fingersticks. 10. Dyslipidemia. Continue statin. 11. Deep venous thrombosis (DVT) prophylaxis. On Eliquis, which was recently started for atrial fibrillation. DISPOSITION: V/Q scan was negative. Patient has been started on Eliquis for atrial fibrillation, likely paroxysmal. Dr. Felipe has been consulted. We will continued to follow his recommendations and will continue to follow up with patient. Patient has been discussed with attending doctor, Dr. Pierre. My preceptor for this patient encounter was Dr. Lucie Costello. The preceptor was physically present in the building during the encounter and was fully available as needed. All aspects of the patient interview, examination, medical decision-making process, and medical care plan development were reviewed and approved by the preceptor. The preceptor is aware and concurs with the plan as stated in the body of this note and will attest to such by his/her co-signature. I have both independently examined this patient as well as reviewed the note. I have discussed in detail with the resident the findings and plan of treatment as documented in the residents note. I will continue to follow the patient and offer further guidance to the patients care as necessary during this hospital stay. Lucie GAXIOLA
[2016-10-24 16:00] VITALS: BP 137/72
[2016-10-24 20:00] VITALS: BP 140/73
[2016-10-24] MEDS: SIMVASTATIN 40 MG TAB PO SCH (20:40)
[2016-10-24] MEDS: ASPIRIN 81 MG CHEW TABLET PO SCH (20:40)
[2016-10-24] MEDS: LEVEMIR (INSULIN DETEMIR) 1 UNITS/0.01ML SC SCH (20:41)
[2016-10-24 23:59] VITALS: BP 141/71
[2016-10-25 04:00] VITALS: BP 151/68
[2016-10-25] MEDS: SLF 3 ML SYR IV SCH ×3 (05:38→21:00)
[2016-10-25 05:41] LABS: EOS % 0.6 % (0.0-3.0); LARGE UNSTAINED CELL % 0.5 % (0.0-4.0); LYMPH # 0.8 K/mm3 (1.5-4.5); LYMPH % 11.7 % (24.0-44.0); MEAN CORPUSCULAR HEMOGLOBIN 27.8 pg (27.0-33.0); MEAN CORPUSCULAR HGB CONC 31.7 g/dl (32.0-36.5); MEAN CORPUSCULAR VOLUME 87.7 fl (80.0-96.0); MONO # 0.2 K/mm3 (0.0-0.8); MONO % 2.5 % (0.0-5.0); NEUTROPHILS # 5.6 K/mm3 (1.8-7.7); NEUTROPHILS % 84.7 % (36.0-66.0); PLATELET COUNT, AUTOMATED 322 k/mm3 (150-450); RED CELL DISTRIBUTION WIDTH 12.6 % (11.5-14.5); WHITE BLOOD COUNT 6.6 K/mm3 (4.0-10.0)
[2016-10-25 05:49] LABS: CALCIUM LEVEL 8.8 MG/DL (8.8-10.2); CREATININE FOR GFR 2.01 MG/DL (0.55-1.02); GLOMERULAR FILTRATION RATE 24.9 (>32); MAGNESIUM LEVEL 2.2 MG/DL (1.8-2.4); POTASSIUM SERUM 4.4 MEQ/L (3.5-5.1)
[2016-10-25 07:30] VITALS: BP 136/64
[2016-10-25] MEDS: IPRATROPIUM 0.5MG/ALBUTEROL 2.5MG INH SOL UD 3ML (DUONEB)(J7620) NEB SCH ×3 (07:32→15:33)
[2016-10-25] MEDS: BUDESONIDE 0.5 MG/2 ML INHALATION SUSPENSION INH SCH ×2 (07:32→20:00)
[2016-10-25] MEDS: methylPREDNISolone INJ 125 MG/2 ML VIAL (J2930) IV SCH ×2 (08:21→21:00)
[2016-10-25] MEDS: HumaLOG INSULIN (NovoLOG) PER UNIT SC SCH ×4 (08:21→20:59)
[2016-10-25] MEDS: METOPROLOL TART 50 MG TAB PO SCH ×2 (08:22→20:58)
[2016-10-25] MEDS: cefTRIAXone SOD 1 GM in D5W MINI-BAG PLUS 50 ML IV SCH (08:22)
[2016-10-25] MEDS: APIXABAN 2.5 MG TAB (ELIQUIS) PO SCH ×2 (08:22→20:58)
[2016-10-25] MEDS: AMIODARONE 200 MG TAB (PACERONE) PO SCH ×2 (08:22→20:58)
[2016-10-25] MEDS: DOCUSATE SODIUM 100 MG CAP PO SCH ×2 (08:22→20:57)
--- NOTE | 2016-10-25 08:23 | IPN ---
DATE OF VISIT: 10/25/2015 The patient tells me that she is feeling better this morning, she was able to sleep without any difficulty. She still continues to complain about mostly, at this point, nonproductive cough. As a positive piece of news she converted to sinus rhythm at approximately 02:38 at night, has remained in sinus rhythm since and has not had any recurrence of nonsustained ventricular tachycardia (VT) since. VITAL SIGNS: Blood pressure 151/68, heart rate now in 60s. She is afebrile. Saturation 94% on room air. Fluid balance yesterday was documented at about a liter positive, weight is 60 kg. GENERAL: She is alert and oriented and appropriate. She lays in bed in completely horizontal position without any distress. NECK: Her JVP does not appear elevated. LUNGS: Lungs have only fair air movement. I still appreciate some diminished sounds over both bases. HEART: Exam though is regular without gallop or rub. ABDOMEN: Abdomen is soft, nontender. This no peripheral edema. NEUROLOGY EXAM: Neurologically she is intact. LABORATORY: Basic metabolic panel reveals sodium 140, potassium 4.4, BUN 46, creatinine 2, GFR 25 and glucose 277. CBC: Hemoglobin 11.9, hematocrit 37.5 and platelet count 322. WBC count is 6.6 CURRENT MEDICATIONS: - Insulin - Solu-Medrol - amiodarone 400 twice a day - Pulmicort - apixaban 2.5 twice a day - aspirin 81 - metoprolol 50 three times a day with holding parameters - simvastatin. ASSESSMENT/PLAN: Mrs. Miranda is an 86-year-old female who has no prior history of cardiovascular problems. She presented with shortness of breath and was felt to be in congestive heart failure. She also developed atrial fibrillation with rapid ventricular response shortly after presentation. On top of it the situation was complicated by development of acute renal failure. I believe that most likely she has had paroxysmal atrial fibrillation to start with that got further intensified by the presence of respiratory infection, at least bronchitis if not pneumonia and that led to some fluid retention as a consequence. At this point congregation of sinus rhythm mechanism is certainly encouraging. I will continue the amiodarone in the loading dose for at least a few days and then will reduce to maintenance dose. I am going to cut the dose of beta-niki to just twice a day dosing with holding parameters. She will need to stay on anticoagulation for the foreseeable future. As far as the renal failure is concerned, I am not certain about the etiology. There was no evidence for obstruction and renal ultrasound was supportive of medical renal disease. I suspect that the decreased cardiac output in the setting of infection and tachycardia was responsible. I do not believe the patient is grossly volume overloaded and for the time being, I would not see a role for diuretics. I am hopeful that the patient will be discharged within next few days. She will need outpatient followup. MINOR
[2016-10-25 12:00] VITALS: BP 148/85
[2016-10-25] MEDS ORDERED: CEFEPIME HCL 0.5 GM in D5W 50 ML IV SCH (13:00)
--- NOTE | 2016-10-25 14:50 | IPN ---
DATE: 10/25/2016 Time patient was seen was this morning at 9 o'clock. Patient has been seen and examined at the bedside. No acute events overnight. The patient's heart rate has converted to sinus rhythm. Patient denies any trouble breathing. Denies any chest pain or pressure. Denies any fever or chills. Denies any abdominal pains, nausea, vomiting, diarrhea, constipation. Denies any problem with urination. PHYSICAL EXAMINATION: VITAL SIGNS: Temperature 96.5, pulse 68, respirations 20, blood pressure 136/64 , oxygen saturation 98% on room air. GENERAL: Patient is pleasant elderly female who was alert, awake and oriented times three. Does not appear to be in distress. Resting comfortably in bed, with head elevated at a 45 degree angle. HEENT: Normocephalic, atraumatic. Extraocular motor intact. Mucosa moist. NECK: Supple. No neck lymphadenopathy. CARDIOVASCULAR: Regular rate and rhythm. S1 and S2. Patient does have a 2/6 systolic heart murmur. LUNGS: Slight wheezing bilaterally. ABDOMEN: Positive bowel sounds. Soft, nontender. No peritoneal signs. No ecchymosis. EXTREMITIES: No edema, clubbing or cyanosis. SKIN: Warm and dry. NEUROLOGIC: Cranial nerves II-XII intact. No focal neurological deficits. LABORATORIES: WBC 6.6, hemoglobin 11.9, hematocrit 37.5, with a platelet count of 322 and MCV 87.7. Sodium 140, potassium 4.4, chloride 99, bicarbonate 34, BUN 46, creatinine 2.01, worsening compared to day prior, GFR was 24.9, glucose 277, calcium 8.8, magnesium 2.2. Accu-Chek glucose was 329, 289 and 386. Patient's urine Legionella and urine Streptococcus pneumoniae are pending. Sputum stain and culture shows Pseudomonas aeruginosa sensitive to ceftazidime, gentamicin, meropenem, Zosyn and tobramycin. No new imaging. ASSESSMENT/PLAN: 86-year-old female with past medical history of hypertension, dyslipidemia, type 2 diabetes, possible chronic obstructive pulmonary disease (COPD), presented with dyspnea, cough, shortness of breath, and hypoxia. 1. Hypoxia. Likely secondary to community-acquired pneumonia versus atrial fibrillation versus pulmonary edema from congestive heart failure (CHF). The patient's shortness of breath has resolved. Cardiology, Dr. Felipe, has been consulted and recommended by mouth amiodarone. Today patient has also converted to sinus rhythm. Amiodarone has been reduced from 400 mg twice a day to 200 mg twice a day with a plan to send the patient home possibly on 200 daily. Otherwise, patient has been started on cefepime today due to sputum culture grew Pseudomonas. Infectious disease, Dr. Gage, has been consulted and will help to manage the patient with Pseudomonas infection. 2. Possible chronic obstructive pulmonary disease (COPD) exacerbation. Patient did receive DuoNebs on admission and today the patient's lungs sound much improved. Will continue to monitor. 3. Possible pulmonary embolism has been ruled out with a negative V/Q scan. 4. Atrial fibrillation with rapid ventricular response. Cardiology has been consulted. Will continue to follow Dr. Felipe's recommendation. 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 5. Possible community-acquired pneumonia on CT of the chest. Rocephin has been discontinued due to sputum culture showing Pseudomonas. Infectious disease has been consulted. Will continue to monitor. 6. Questionable decompensated heart failure shown on echocardiogram of the heart, possibly secondary to atrial fibrillation. Continue to monitor. Lasix was discontinued two days ago. 7. History of hypertension. Continue on metoprolol. 8. Possible acute on chronic kidney disease with unknown baseline. Renal ultrasound does show medical renal disease. Due to creatinine continuing to worsen, nephrology Dr. Yen has been consulted. Dr. Yen recommended a Doppler duplex of the renal artery. Results are pending. Will followup. Otherwise, possibly the patient is back to her baseline. 9. Xzy-gxzpgsf-kxgwdkylh type 2 diabetes. Continue insulin sliding scale. The patient's A1c was 6.5, however the patient's glucose continues to rise and I have increased the Levemir from 6 units to 15 units. 10. Dyslipidemia. Continue statin. 11. Deep venous thrombosis (DVT) prophylaxis. On Eliquis for atrial fibrillation. DISPOSITION: Patient's atrial fibrillation has improved back to sinus rhythm. Continue Eliquis. We appreciate Dr. Felipe's consult. In addition, nephrology Dr. Yen has been consulted for worsening renal function. We appreciate his consultation as well and will followup with a renal Doppler duplex and continue to monitor the patient. Possibly discharge the patient tomorrow. We also appreciate Dr. Gage's consult for managing antibiotics for Pseudomonas infection. Patient has been discussed with attending doctor, Dr. Pierre. My preceptor for this patient encounter was Dr. Lucie Pierre. The preceptor was physically present in the building during the encounter and was fully available. As needed, all aspects of the patient interview, examination, medical decision making process, and medical care plan development were reviewed and approved by the preceptor. The preceptor is aware and concurs with the plan as stated in the body of this note and will attest to such by his/her cosignature. I have both independently examined this patient as well as reviewed the note. I have discussed in detail with the resident the findings and plan of treatment as documented in the residents note. I will continue to follow the patient and offer further guidance to the patients care as necessary during this hospital stay. Lucie GAXIOLA
[2016-10-25 16:00] VITALS: BP 148/74
--- NOTE | 2016-10-25 17:25 | ECGEPIP ---
Stationary ECG Study [facility] Test Date: 2016-10-25 Pat Name: DICK APONTE Department: Room: [place] [address] Gender: F Court Crier: ANGE : [id number] Requested By: ROSIO DO Order Number: [id number] Reading MD: Jason Rogers Measurements Intervals [place] Rate: 66 P: 61 [place]: 152 QRS: 33 QRSD: 93 T: 55 QT: 393 QTc: 412 Interpretive Statements SINUS RHYTHM MODERATE ST DEPRESSION RHYTHM HAS CONVERTED FROM ATRIAL FIBRILLATION 10/21/16 Electronically Signed On 10-25-2016 17:25:35 EST by Jason Rogers
--- NOTE | 2016-10-25 18:32 | CR ---
DATE OF CONSULTATION: 10/25/2016 REQUESTING PHYSICIAN: Dr. Lucie Pierre CONSULTING PHYSICIAN: Dr. Yen REASON FOR CONSULTATION: Management of acute kidney injury superimposed on chronic kidney disease. CHIEF COMPLAINT: The patient was admitted on 10/20/2016 with progressive shortness of breath. HISTORY OF THE PRESENT ILLNESS: Claudia Miranda is an 86-year-old female with a past medical history of tax-mdvbsdi-qyvfjebpm diabetes mellitus, hypertension, unknown chronic kidney disease, baseline creatinine is not known but the best creatinine over here in the hospital is 1.7, so most likely she has stage III or early stage IV chronic kidney disease. She has not seen the nephrology service before. She presented to the hospital on 10/20/2016 with progressive shortness of breath. She was found to be hypoxemic on arrival in the emergency room. The patient was found to have atrial fibrillation with rapid ventricular rate and congestive heart failure because of the atrial fibrillation. She was seen by cardiology. Her atrial fibrillation was rate controlled. She was diuresed for volume overload. Later on, she was also found to have community-acquired pneumonia on the CT scan of the chest and now she is growing Pseudomonas on the sputum culture. Primary team has called the nephrology service because her creatinine on admission was 1.7 and it has gone up to 2.01 today. The patient was examined at the bedside today be me. She denies any active complaints at this time apart from the cough and currently she is not short of breath and patient is not oliguric. She is not on diuretics at this time. Last diuretic dose was on 10/23/2016. PAST MEDICAL HISTORY: Diabetes mellitus, type 2. Hypertension. Hyperlipidemia. History of mastitis and breast abscess in the past. Possible chronic kidney disease but baseline creatinine is not known. PAST SURGICAL HISTORY: No significant past surgical history. ALLERGIES: No known drug allergies. HOME MEDICATIONS: Patient's home medications include aspirin, glipizide, metformin, metoprolol, Onglyza and Zocor. FAMILY HISTORY: Positive family history of heart disease in the family. No significant history of end-stage renal disease requiring hemodialysis in the family. SOCIAL HISTORY: The patient denies any smoking, drug abuse or alcohol abuse. She reports that she has five children. REVIEW OF SYSTEMS: CONSTITUTIONAL: She denies any fever, chills, rigors or weakness. EYES: She denies any recent blurry vision. ENT: She denies any ear discharge, ear pain, dysphagia, odynophagia. CARDIOVASCULAR: She denies any chest pain, but she was found to have atrial fibrillation on arrival in the emergency room. RESPIRATORY: She reports some cough. Shortness of breath is better. GASTROINTESTINAL: She denies any pain in the abdomen, diarrhea or constipation. GENITOURINARY: She denies any dysuria, hematuria or any change in urine frequency or volume. MUSCULOSKELETAL: She denies any muscle aches and pains. HEMATOLOGICAL/ONCOLOGICAL: She denies any history of anemia or easy bruising. ENDOCRINE: She reports a history of diabetes. No history of thyroid problems. SKIN: She denies any rashes or ulcers. PSYCHIATRIC: She denies any history of depression or anxiety. CENTRAL NERVOUS SYSTEM: She denies any history of seizure disorder, strokes or transient ischemic attack (TIAs). PHYSICAL EXAMINATION: GENERAL: The patient is awake, alert, oriented times three, sitting in the bed, no apparent distress. VITAL SIGNS: Temperature is 96.3 degrees Fahrenheit, blood pressure is 148/85, pulse is 67, respiratory rate of 18, saturating 96% on room air. INTAKE/OUTPUT: Urine output recorded yesterday is 800 mL. Urine output recorded so far today is 650 mL. HEAD AND NECK EXAM: Extraocular muscles intact. Pupils equally round and reactive to light. Neck is supple. There is no jugular venous distention (JVD). Mucous membranes are moist. CARDIOVASCULAR: S1, S2. Regular rate. No murmur, rub or gallop at this time. RESPIRATORY: Chest is clear to auscultation bilaterally. Bilateral equal air entry. No rales or rhonchi. ABDOMEN: Soft. Positive bowel sounds. Nontender. No ascites. No organomegaly. EXTREMITIES: No clubbing or cyanosis. Pulses are 2+. There is no edema. CENTRAL NERVOUS SYSTEM: No focal neurological deficit. Power is 5/5 in all extremities. PSYCHIATRIC: Normal mood and affect. SKIN: No rashes or ulcers. LYMPH NODES: No significant cervical, axillary or inguinal lymphadenopathy. LAB REVIEW: CBC showed a WBC of 6.6, hemoglobin 11.9, platelets are 322. BMP showed sodium 140, potassium 4.4, chloride 99, bicarbonate 34. BUN is 46, creatinine is 2.01, glucose 277, calcium 8.8, magnesium 2.2. C-reactive protein is 1.79, BNP was 422 this morning. Microbiology: Sputum culture is growing Pseudomonas aeruginosa and yeast-like organisms. IMAGING: A renal ultrasound done on 10/20/2016 showed right kidney was 10 cm, left kidney was 8.8 cm. There was small left pleural effusion, and there was evidence of chronic medical renal disease. CURRENT INPATIENT MEDICATIONS: The patient's current inpatient medications include cefepime which has been stopped and Rocephin which she got for about 5 days which has been stopped as well. Tylenol as needed. DuoNeb nebulizations. Amiodarone 200 mg twice a day. Eliquis 2.5 mg twice a day. Aspirin. Pulmicort. Omnicef 300 mg by mouth nightly. Colace. Mucinex. Insulin Levemir 15 units nightly. Insulin Lispro sliding scale. Solu-Medrol 60 mg every 12 hours IV. Metoprolol 50 mg by mouth twice a day. Simvastatin 40 mg nightly. ASSESSMENT: An 86-year-old female with a past medical history of eqq-ruezese-jfzkcuqyd diabetes, hypertension, hyperlipidemia, baseline chronic kidney disease, admitted this time with atrial fibrillation with RVR, congestive heart failure and now being treated for community-acquired pneumonia. Nephrology service following the patient for management of acute kidney injury superimposed on chronic kidney disease. PLAN: 1. Acute kidney injury superimposed on chronic kidney disease, most likely stage III. The patient's creatinine has been fluctuating between 1.7 to 2.0. Clinically, the patient does not seem to be fluid overloaded. She does not need any diuretics at this time. I think the patient might be slightly volume depleted given her rising creatinine and rising serum bicarbonate levels. Continue to hold the diuretics at this time. No need of IV fluids. I would wait for the kidney function to improve. Ultrasound shows evidence of medical renal disease. Left kidney is smaller as compared with right. I recommend doing a Doppler of the bilateral renal arteries as well. 2. Decompensated heart failure. The patient's volume status is currently well optimized. Continue to hold the diuretics. Blood pressure is acceptable. Continue the current dose of metoprolol 50 mg by mouth twice a day. 3. Atrial fibrillation. The patient's heart rate is controlled at this time. She is on Eliquis. Okay to continue the current dose of Eliquis, and she is on amiodarone 200 mg by mouth twice a day as recommended by cardiology. 4. Pseudomonas pneumonia. The patient is currently on Omnicef. Duration of antibiotics is as per primary team. 5. Non-insulin dependent diabetes. Avoid metformin in this patient because of the high creatinine. The rest of the management is as per primary team. Thank you for involving us in the care of this patient. We shall be happy to follow the patient along with you tomorrow morning. Plan of care was already discussed with the medical technician assistant, Dr. Abby Godoy.
[2016-10-25 20:00] VITALS: BP 166/72
[2016-10-25] MEDS: CEFDINIR 300 MG CAP (OMNICEF) PO SCH (20:57)
[2016-10-25] MEDS: ASPIRIN 81 MG CHEW TABLET PO SCH (20:58)
[2016-10-25] MEDS: guaiFENesin ER 600 MG TAB PO SCH (20:58)
[2016-10-25] MEDS: SIMVASTATIN 40 MG TAB PO SCH (20:58)
[2016-10-25] MEDS: LEVEMIR (INSULIN DETEMIR) 1 UNITS/0.01ML SC SCH (20:59)
[2016-10-25 23:59] VITALS: BP 147/71
[2016-10-26 00:06] LABS: ORGANISM ID Not indicated. (.); SPECIMEN SOURCE Urine (.)
--- NOTE | 2016-10-26 00:28 | CR ---
DATE OF CONSULTATION: 10/25/2016 INFECTIOUS DISEASE CONSULTATION I was asked to consult by Dr. Pierre for evaluation of Pseudomonas on a sputum culture and antibiotic choices. HISTORY OF PRESENT ILLNESS: Mrs. Miranda is an 86-year-old female with a history of non-insulin dependent diabetes, hypertension and hyperlipidemia who presented to the hospital with severe shortness of breath that had started a few days prior to admission. In the emergency room, her oxygen saturation was found to be 83%. She had been feeling weak with increased cough and congestion. The patient had decreased urinary output. She denies any previous history of congestive heart failure, heart disease, emphysema or smoking. The patient was found to be in atrial fibrillation, congestive heart failure. She was diuresed. She was seen by cardiology in consultation, started on amiodarone and converted to sinus rhythm. The patient also was treated for presumptive pneumonia with Rocephin for 5 days and Zithromax for 3 days. Her chest x-ray was more consistent with congestive heart failure and a followup chest x-ray done on 10/23/2016 showed complete resolution of vascular congestion and interstitial edema and no acute infiltrates were noted on 10/23/2016. A sputum culture was obtained 3 days after her hospitalization, had moderate white cell and a few Pseudomonas, a few yeastlike organisms. The patient was switched today to cefepime 0.5 grams IV every 24 hours in spite of her clinical improvement. Her oxygen is back to baseline, 96-98% on room air. The patient does have a cough, which is productive of mild yellowish-greenish phlegm. She has had no fever and no oxygen needs. LABORATORY DATA: White count on admission was 9.9, today it was 6.6, hemoglobin 11.9, hematocrit was 37.5, platelets 322, 84% neutrophils, 11% lymphocytes, 2% monocytes. Sodium 140, potassium 4.4, chloride 99, bicarbonate 34, BUN 46, creatinine 2, glucose was 77, calcium 8.8, magnesium 2.2, BNP 422, it peaked at 1090, CRP was 11.9 down to 3.16. On 10/20/2016, two sets of blood cultures were negative. Influenza A and B were negative. Urine culture was negative and sputum culture was done on 10/22/2016 and had Pseudomonas, susceptibilities to quinolone, was terminated on the VITEK and was being repeated. The rest of antibiotics were sensitive. V/Q scan showed low probability for pulmonary embolism. Chest x-ray showed no acute infiltrate on 10/23/2016, two views. ALLERGIES: No known drug allergies. MEDICATIONS: - Levemir 15 units subcu nightly - amiodarone 200 mg by mouth twice a day - cefepime 0.5 grams IV every 24 hours, day #1 - metoprolol 50 mg by mouth twice a day - Solu-Medrol 60 mg IV every 12 hours - Pulmicort 0.5 inhaled twice a day - Eliquis 2.5 mg by mouth twice a day - aspirin 81 mg by mouth nightly - Zocor 40 mg by mouth nightly - Colace 100 mg by mouth twice a day - albuterol/Atrovent nebs as needed. On physical exam, she is an elderly female in no acute distress, pleasant, somewhat confused about her history but otherwise feels well. Temperature is 96.3, pulse 67, respirations 20, blood pressure 148/85, oxygen saturation 96-98% on room air. She has been afebrile throughout the admission. Heart: Normal S1, S2 without gallops or rubs. Lungs: Decreased air entry, diminished at the bases but no crackles or wheezes. Abdomen: Soft, nontender. No hepatosplenomegaly. Extremities: No clubbing, cyanosis or edema. Neurologic Exam: Alert and oriented times three, moves all extremities. IMPRESSION: This is an 86-year-old female with no previous history of cardiovascular problems or lung disease who presented with acute shortness of breath which was felt to be due to congestive heart failure. She also developed atrial fibrillation with rapid ventricular response. The patient was treated with IV Rocephin and Zithromax for 5 days and has clinically improved. She does not need any more oxygen. Her oxygen saturation is 98%. Her CRP has dropped from 11.9 to 3 after treatment with broad-spectrum antibiotic but no Pseudomonas coverage. Her hypoxia resolved after diuresis as well. A sputum culture 3 days into antibiotic therapy showed Pseudomonas few, this is colonization and not true infection and I would not pursue treatment with an anti-Pseudomonal drug as she has clinically improved with ceftriaxone and Zithromax. Patient infection bronchitis or mild pneumonia was likely viral or typical bacterial pathogens that responded top above drugs PLAN: 1. Since the patient has clinically improved on ceftriaxone and Zithromax with a decrease in her CRP and improving symptoms, I will switch her to Omnicef. This is not a reliable sputum culture that was taken 3 days into admission, and there is only a few Pseudomonas and more likely colonization. 2. Discontinue cefepime. 3. Add Mucinex 600 mg by mouth twice a day. The patient, from an infectious disease standpoint, could be discharged home tomorrow with 5 more days of antibiotic. Encourage the patient to take probiotics, MTDD
[2016-10-26 04:00] VITALS: BP 142/64
[2016-10-26 05:19] LABS: MEAN CORPUSCULAR HEMOGLOBIN 28.6 pg (27.0-33.0); MEAN CORPUSCULAR HGB CONC 33.1 g/dl (32.0-36.5); MEAN CORPUSCULAR VOLUME 86.7 fl (80.0-96.0); RED CELL DISTRIBUTION WIDTH 12.6 % (11.5-14.5); WHITE BLOOD COUNT 10.6 K/mm3 (4.0-10.0)
[2016-10-26] MEDS: SLF 3 ML SYR IV SCH ×3 (05:28→20:28)
[2016-10-26 05:34] LABS: CREATININE FOR GFR 2.04 MG/DL (0.55-1.02); GLOMERULAR FILTRATION RATE 24.5 (>32); MAGNESIUM LEVEL 2.3 MG/DL (1.8-2.4); POTASSIUM SERUM 4.4 MEQ/L (3.5-5.1)
[2016-10-26 07:30] VITALS: BP 158/72
[2016-10-26] MEDS: HumaLOG INSULIN (NovoLOG) PER UNIT SC SCH ×4 (08:58→20:28)
[2016-10-26] MEDS: DOCUSATE SODIUM 100 MG CAP PO SCH ×2 (08:59→20:25)
[2016-10-26] MEDS: METOPROLOL TART 50 MG TAB PO SCH ×2 (08:59→20:25)
[2016-10-26] MEDS: guaiFENesin ER 600 MG TAB PO SCH ×2 (08:59→20:26)
[2016-10-26] MEDS: AMIODARONE 200 MG TAB (PACERONE) PO SCH (09:00)
[2016-10-26] MEDS: APIXABAN 2.5 MG TAB (ELIQUIS) PO SCH ×2 (09:00→20:26)
[2016-10-26] MEDS: methylPREDNISolone INJ 125 MG/2 ML VIAL (J2930) IV SCH (09:03)
[2016-10-26] MEDS: BUDESONIDE 0.5 MG/2 ML INHALATION SUSPENSION INH SCH ×2 (09:06→20:00)
[2016-10-26] MEDS: IPRATROPIUM 0.5MG/ALBUTEROL 2.5MG INH SOL UD 3ML (DUONEB)(J7620) NEB SCH ×2 (09:06)
--- NOTE | 2016-10-26 10:17 | REP ---
DUPLEX DOPPLER RENAL ARTERY EVALUATION: Real-time ultrasound evaluation and duplex Doppler interrogation of renal arteries performed bilaterally. Peak systolic velocity of the abdominal aorta at the level of the renal arteries is 119.8 cm/s. Peak systolic velocity of the main right renal artery is 65.2 cm/s, renal to aortic ratio is 0.5. Resistive indices are measures in the upper, middle and lower thirds of the right kidney and range between 0.5 and 0.7. Acceleration times are in the range of 0.02. Peak systolic velocity of the main left renal artery is 57.8 cm/s, renal to aortic ratio is 0.5. Resistive indices could only be obtained in the mid kidney and are 0.6 and acceleration time in mid left kidney 0.03. Adequate RI and acceleration time could not be obtained in the upper and lower poles of the left kidney due to atrophy and multiple cysts. Largest cyst is in the mid left kidney 7 mm in diameter. IMPRESSION: No compelling duplex Doppler evidence for significant renal artery stenosis bilaterally. Signed by Dean Mehta MD 10/26/2016 01:27 P
[2016-10-26 12:00] VITALS: BP 149/67
[2016-10-26] MEDS: FUROSEMIDE 40 MG TAB PO SCH (13:04)
[2016-10-26 16:00] VITALS: BP 158/67
--- NOTE | 2016-10-26 18:03 | IPN ---
DATE: 10/26/2016 Patient seen and examined. No acute events overnight. Reported comfortable. Denies any fevers, chills, chest pain, pressure, or discomfort. Afebrile overnight. Temperature 96.4, pulse 51, respirations 20, blood pressure 158/67, pulse oximetry 94% on room air. LABORATORY DATA: WBC 10.6, hemoglobin and hematocrit 10.8/32.6, platelets 301. Chemistry: Sodium 140, potassium 4.4, chloride 100, bicarbonate 31, BUN 58, creatinine 2.04. C-reactive protein 1.15. PHYSICAL EXAMINATION: GENERAL: Patient pleasant, alert and oriented times three in no acute distress. HEENT: Normocephalic, atraumatic. Moist mucous membranes. CARDIAC: Regular rate and rhythm. Normal S1, S2. A 2/6 systolic murmur. PULMONARY: Mild expiratory wheeze. ABDOMEN: Soft and nontender. Positive bowel sounds. EXTREMITIES: No edema, bilateral lower extremities. ASSESSMENT AND PLAN: This is an 86-year-old female patient with underlying medical history of hypertension, dyslipidemia, type 2 diabetes, questionable chronic obstructive pulmonary disease (COPD), presented with dyspnea, cough, and shortness of breath with hypoxia. 1. Hypoxia, likely secondary to community-acquired bacterial pneumonia versus acute congestive heart failure (CHF) exacerbation. Currently improved. Antibiotics currently switched to Omnicef. Initially on Rocephin and azithromycin. Patient currently weaned off FiO2. A V/Q scan negative for pulmonary embolism (PE). 2. Atrial fibrillation with rapid ventricular response. Consulted cardiology Dr. Felipe. Telemetry monitoring appreciated. Cardiac enzymes appreciated. Echo is appreciated. Patient given amiodarone. Beta niki has been adjusted. Anticoagulation with Eliquis. 3. Questionable COPD exacerbation. Patient received nebulizer treatment, Pulmicort, Solu-Medrol, steroid. Taper steroid as tolerated. Continue to monitor. Currently much improved. Antibiotics as mentioned above. Currently patient on cefdinir. 4. Community acquired bacterial pneumonia. Sputum culture positive for pseudomonas. Patient initially on Rocephin, but Rocephin has been discontinued and switched to cefepime given patient having pseudomonas. Currently consulting infectious disease. Antibiotic switched to cefdinir. Patient's C-reactive protein much improved. Symptoms returning to baseline. 5. Decompensated congestive heart failure with diastolic dysfunction. Lasix was initially provided, later held. Currently patient euvolemic. Strict intake and output, daily weight. 6. Hypertension. Continue medication as ordered. 7. Acute on chronic kidney disease, unknown baseline. Renal ultrasound appreciated. Nephrology consulted. Renal duplex appreciated, which was negative. Patient has chronic kidney disease (CKD), stage III. Will need further followup as outpatient. 8. Ryu-vvkzpnw-njtofdyee diabetes, type 2,currently patient on insulin. 9. Hyperglycemia, likely secondary to steroids. A1c is appreciated. Taper steroid rapidly. 10. Dyslipidemia. Continue statin. 11. Deep vein thrombosis prophylaxis. Patient on Eliquis for atrial fibrillation. DISPOSITION: Case discussed with Dr. Yen and Dr. Felipe. Likely discharge tomorrow.
--- NOTE | 2016-10-26 19:36 | IPN ---
DATE: 10/26/2016 SUBJECTIVE: Claudia is better. She is anxious to go home. She is also wondering whether she could travel in November to visit her family. She denies any vomiting or diarrhea. No abdominal pain. Cough is productive mostly of whitish phlegm. Since starting Mucinex, she states her cough has improved. She denies shortness of breath. She is off oxygen. Oxygen saturation is 98% on room air. OBJECTIVE: VITAL SIGNS: Temperature is 98.6, pulse 65, respirations 18, blood pressure 158/72. HEART: Normal S1, S2. Regular. LUNGS: Slightly diminished at the bases but clear. ABDOMEN: Soft, nontender. EXTREMITIES: No clubbing, cyanosis or edema. No calf tenderness. IMPRESSION: 1. Congestive heart failure mostly resolved clinically and by chest x-ray. Her oxygen saturation is 98% on room air. 2. Bronchitis more likely than pneumonia. Her chest x-ray has cleared with diuresis, and she has improved clinically after she received five days of ceftriaxone and Zithromax. Pseudomonas was not the culprit. It is likely a colonization given few colonies and that sputum culture was obtained three days into antibiotics. Urine culture was negative for Legionella and pneumococcus. I would disregard cefepime which I have switched her to Omnicef 200 mg daily for presumed bacterial infection but not Pseudomonas. She will finish five days of Omnicef. Continue Mucinex 600 mg twice a day. LABORATORY DATA White count 10.6, hemoglobin 10.8, hematocrit 32.6. Platelets 301. Sodium 140, potassium 4.4, chloride 100, bicarb 31, BUN 58, creatinine 2, glucose 120, calcium 9, magnesium 2.3. CRP 1.15. Suggest also discontinue methylprednisolone. The patient does not have a history of emphysema or asthma.
[2016-10-26 19:55] VITALS: BP 159/72
[2016-10-26] MEDS: CEFDINIR 300 MG CAP (OMNICEF) PO SCH (20:25)
[2016-10-26] MEDS: SIMVASTATIN 40 MG TAB PO SCH (20:25)
[2016-10-26] MEDS: ASPIRIN 81 MG CHEW TABLET PO SCH (20:26)
[2016-10-26] MEDS: LEVEMIR (INSULIN DETEMIR) 1 UNITS/0.01ML SC SCH (20:26)
[2016-10-26] MEDS ORDERED: methylPREDNISolone INJ 125 MG/2 ML VIAL (J2930) IV SCH (22:00)
[2016-10-26] MEDS ORDERED: methylPREDNISolone INJ 40 MG/1 ML VIAL (J2920) IV SCH (22:00)
[2016-10-26 23:43] VITALS: BP 140/63
--- NOTE | 2016-10-27 02:03 | IPN ---
DATE OF SERVICE: 10/26/2016 SUBJECTIVE: Patient was seen and examined at the bedside today in the morning. She is sitting in the sofa. She was totally asymptomatic. She denies any active complaints at this time. Her renal function is stable. REVIEW OF SYSTEMS: Patient denies any fevers, chills, rigors, headache, nausea, vomiting, chest pain, shortness of breath, pain abdomen, constipation, or diarrhea. Rest of review of systems is negative. OBJECTIVE: VITAL SIGNS: Temperature is 97.6 degrees Fahrenheit. Blood pressure is 149/67. Pulse is 60. Respiratory rate of 18, saturating 94% on room air. INTAKE AND OUTPUT: Urine output recorded is 950 mL yesterday, 200 mL so far today. Weight in the bed scale is 60.3 kg. PHYSICAL EXAMINATION: GENERAL: Patient is awake, alert, oriented times three, sitting in the sofa, no apparent distress. HEAD AND NECK EXAM: Extraocular muscles intact. Pupils equally round and reactive to light. Neck is supple. There is no jugular venous distention (JVD). Mucous membranes are moist. CARDIOVASCULAR: S1, S2, regular rate. No murmur, rub or gallop. RESPIRATORY: Chest is clear to auscultation bilaterally. Bilateral equal air entry. No rales or rhonchi. ABDOMEN: Soft, positive bowel sounds, nontender. No ascites. No organomegaly. EXTREMITIES: No clubbing or cyanosis. Pulses are 2+. No edema of the bilateral lower extremities. CENTRAL NERVOUS SYSTEM: No focal neurological deficit. Power is 5/5 in all extremities. SKIN: No rashes or ulcers. LABORATORY REVIEW: CBC showed a WBC of 10.6, hemoglobin 10.8, platelets are 301. BMP showed sodium 140, potassium 4.4, chloride 100, bicarbonate 31, BUN 58, creatinine 2.04. Calcium is 9. Magnesium is 2.3. Microbiology: No new cultures. IMAGING: A renal artery Doppler was done today morning, which showed no evidence of significant renal artery stenosis bilaterally. CURRENT MEDICATIONS: Patient's medications were all reviewed by me. She is receiving cefdinir at this time. There is no other change in the medications. 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 Nephrology service following the patient for management of acute kidney injury superimposed on chronic kidney disease. PLAN: 1. Acute kidney injury superimposed on chronic kidney disease. Patient most likely has baseline late stage III to early stage IV chronic kidney disease. Her creatinine has been stable between 1.7 and 2. There are no signs of fluid overload. Patient was slightly volume contracted yesterday. Her diuretics are on hold. Her creatinine is stable at this time. Doppler of the renal arteries is normal. No further intervention is needed at this time. Patient will need to followup with nephrology as outpatient after discharge from the hospital. 2. Decompensated heart failure. Volume status is currently optimized. She did have venous congestion on 2D echocardiogram done about 5 days ago. She has already been diuresed. I am going to start her on a very low dose of diuretic 40 mg by mouth daily. Continue current dose of metoprolol 50 mg twice a day. 3. Atrial fibrillation. Heart rate is controlled at this time. She is currently on Eliquis and amiodarone. Dosage is as per cardiology and primary team. 4. Pst-slbzdic-cyzieoycj diabetes. Metformin is on hold because of chronic kidney disease (CKD) stage IV and she is not a candidate for angiotensin-converting enzyme (CHARLIE) inhibitors or angiotensin receptor blockers at this time because of the CKD stage IV. The rest of the management is as per primary team.
[2016-10-27] MEDS: SLF 3 ML SYR IV SCH (04:11)
[2016-10-27 04:49] VITALS: BP 148/63
[2016-10-27 05:47] LABS: MEAN CORPUSCULAR HEMOGLOBIN 28.1 pg (27.0-33.0); MEAN CORPUSCULAR HGB CONC 32.4 g/dl (32.0-36.5); MEAN CORPUSCULAR VOLUME 86.7 fl (80.0-96.0); RED CELL DISTRIBUTION WIDTH 12.8 % (11.5-14.5)
[2016-10-27 06:09] LABS: CALCIUM LEVEL 8.3 MG/DL (8.8-10.2); CREATININE FOR GFR 2.01 MG/DL (0.55-1.02); GLOMERULAR FILTRATION RATE 24.9 (>32); MAGNESIUM LEVEL 2.3 MG/DL (1.8-2.4); POTASSIUM SERUM 3.8 MEQ/L (3.5-5.1)
[2016-10-27] MEDS: HumaLOG INSULIN (NovoLOG) PER UNIT SC SCH ×2 (07:30→13:08)
[2016-10-27] MEDS: IPRATROPIUM 0.5MG/ALBUTEROL 2.5MG INH SOL UD 3ML (DUONEB)(J7620) NEB SCH ×2 (07:37)
[2016-10-27] MEDS: BUDESONIDE 0.5 MG/2 ML INHALATION SUSPENSION INH SCH (07:37)
[2016-10-27] MEDS: guaiFENesin ER 600 MG TAB PO SCH (07:59)
[2016-10-27] MEDS: APIXABAN 2.5 MG TAB (ELIQUIS) PO SCH (07:59)
[2016-10-27 08:00] VITALS: BP 154/84
[2016-10-27 08:01] VITALS: BP 154/84
[2016-10-27] MEDS: METOPROLOL TART 50 MG TAB PO SCH (08:01)
[2016-10-27] MEDS: DOCUSATE SODIUM 100 MG CAP PO SCH (08:01)
[2016-10-27] MEDS: FUROSEMIDE 40 MG TAB PO SCH (08:01)
[2016-10-27] MEDS ORDERED: predniSONE 20 MG TAB PO SCH (09:00)
[2016-10-27] MEDS ORDERED: AMIODARONE 200 MG TAB (PACERONE) PO SCH (09:00)
[2016-10-27] MEDS ORDERED: COLA100C PO (09:04)
[2016-10-27] MEDS ORDERED: CEFD300CAP PO (09:04)
[2016-10-27] MEDS ORDERED: FURO40TA2 PO (09:04)
[2016-10-27] MEDS ORDERED: AMIO20TA PO (09:04)
[2016-10-27] MEDS ORDERED: PRED5TA PO (09:06)
[2016-10-27] MEDS ORDERED: BLOOKIT XX (09:46)
--- NOTE | 2016-10-28 17:18 | DSES ---
DATE OF ADMISSION: 10/20/2017 DATE OF DISCHARGE: 10/27/2015 ADMISSION DIAGNOSES: 1. Severe shortness of breath and hypoxia secondary to decompensated heart failure versus atrial fibrillation with rapid ventricular response (RVR). 2. Decompensated heart failure. 3. Hypertensive urgency. 4. Acute on chronic kidney disease with unknown baseline. 5. Hyperkalemia. 6. Hyperglycemia with type 2 diabetes. 7. Chronic anemia. 8. Rule out acute coronary syndrome (ACS) 9. Hyperlipidemia. 10. Unspecified infection of the heart 30 years ago. DISCHARGE DIAGNOSES: 1. Hypoxia likely secondary to community acquired pneumonia versus congestive heart failure (CHF) exacerbation. 2. Atrial fibrillation with rapid ventricular response (RVR). 3. Questionable chronic obstructive pulmonary disease (COPD) exacerbation. 4. Decompensated heart failure with diastolic dysfunction. 5. Hypertension. 6. Acute on chronic kidney disease. 7. Frw-ydxxefc-iyxajbfrt type 2 diabetes. 8. Hyperglycemia possibly secondary to steroid use. 9. Dyslipidemia. CONSULTANTS: Dr. Felipe and Dr. Orourke from cardiology. Dr. Gage from infectious disease and Dr. Yen from nephrology. PROCEDURES AND IMAGING: The patient did receive echocardiogram on 10/20/[address] Thomson shows a global left ventricular systolic function 60 to 60%. Left ventricular free wall may be hypokinetic in limited views. Minimal calcified aortic valve with normal leaflet excursion. Mildly calcified mitral annulus with normal anterior mitral valve leaflet motion. Normal tricuspid valve. Pulmonic valve and proximal pulmonic artery branches were not well visualized. Inferior vena cava borderline enlargement. The patient does have a low normal global left ventricular systolic function. Related, underlying atrial fibrillation and also aortic valve sclerosis and mild aortic regurgitation. Also mild annulus calcification, also mild mitral regurgitation, moderate tricuspid regurgitation, moderate pulmonary hypertension and dilated right heart chambers. The patient had a renal ultrasound on 10/20/2016 shows chronic medical renal disease, small left pleural effusion. No renal trauma or injury appreciated. The patient had a CT chest on 10/21/2016 shows bilateral pleural effusion, subtle scattered alveolar ground glass opacity with mild pulmonary vascular prominence. Differential diagnosis included early resultant pneumonia, as well as pulmonary vascular congestion. The patient had a V/Q scan 10/23/2016, which shows low probability for pulmonary embolism. The patient also had renal Doppler study on 10/26/2016 that shows no compelling Duplex Doppler evidence of significant renal artery stenosis bilaterally. HISTORY OF PRESENT ILLNESS: 86-year-old female with past medical history of jur-suxclfw-gtuxlrmbs type 2 diabetes, hyperlipidemia, hypertension, unspecified infection of the heart 30 years ago presented with shortness of breath that started a few days ago. However, was worsening on the day of admission. In the emergency room, the patient was found to be saturating at 83%. The patient stated that she has been feeling weak and also coughing and congestion for about one week. She also noticed reduced urination. However, no change of urine color. No burning on urination. She stated that she fell on the right side about a week ago and had a right-sided pain for a few day. She also hit her face; however, she does not have any headaches. No change of sensations. No change of vision, hearing or taste. She does not feel weaker on one side of the body compared to the other. Hip pain has resolved as well. Last time she went to see a doctor was June 2016. According to emergency room doctor, they had also concern that the patient has not been taking her medication correctly at home. Otherwise, the patient reports a granddaughter also has a cough, as well as her daughter. Otherwise, the patient denies eating anything salty likely. The patient also sleeps flat on her back with only one pillow. Otherwise, she denies any chest pain, abdominal pain, nausea, vomiting, diarrhea or constipation. She does admit to recently traveled between a few states including [place] in the past three months. HOSPITAL COURSE: Day of admission, echocardiogram was ordered. The patient was placed on 4 liters of nasal cannula and titrated oxygen above 90%. Continued the patient on Lasix 40 mg every 6 hours with a negative output of 2 liters. Otherwise, blood pressure was controlled without additional blood pressure medication other than home medication. Kidney was found to have medical renal disease with renal ultrasound. However, the patient denied to have any renal disease in the past. She was found to be hyperglycemic with glucose of 460 and she was only on by mouth medications at home. Troponin was slightly elevated at 0.05. Therefore cardiac enzymes were trended to rule out acute coronary syndrome (ACS). In addition, echocardiogram the next day came back showing enlarged right-sided heart chambers possibly pulmonary emboli (PE). There, a V/Q scan was ordered. In addition, the patient was also found to have atrial fibrillation with rapid ventricular response (RVR); therefore, cardiology was consulted and the patient was started on amiodarone with good control. Over the next few days, the patient's sputum also grew pseudomonas; therefore, infectious disease specialist, dr. Gage was consulted for antibiotic management and the patient was switched to Omnicef from Rocephin and azithromycin. Over the next few days, the patient's kidney function did not improve. Therefore, nephrology was consulted, ordered renal Doppler Duplex to check for renal artery stenosis. However, the results were negative. Therefore, the patient actually has chronic renal disease and the patient was also started on Eliquis for the patient's atrial fibrillation. On 10/27/2016, the patient was stable and would like to go home. Heart rate was controlled. The patient, therefore, was discharged home. Discharged back to home. ACTIVITY: As tolerated. DIET: Carbohydrate consistent and heart healthy diet. DISCHARGE MEDICATIONS INCLUDING NEW MEDICATION: - amiodarone 200 mg one tablet by mouth daily - Eliquis 2.5 mg one tablet by mouth three times a day - cefdinir 300 mg one tablet by mouth at bedtime (q.h.s.) for 8 days - Colace 100 mg one tablet by mouth twice a day - Lasix 40 mg one tablet by mouth daily - prednisone 10 mg on the first day and then 5 mg on the second day and then stop. Continue home medications: - aspirin 325 mg one tablet by mouth at bedtime (q.h.s.) - glipizide 5 mg one tablet by mouth twice a day - metoprolol 50 mg one tablet by mouth twice a day - Onglyza 2.5 mg one tablet by mouth daily - Zocor 40 mg one tablet by mouth at bedtime (q.h.s.) Stop the medications including metformin 50 mg one tablet by mouth twice a day FOLLOWUP: The patient should followup with primary care provider within one to two weeks. Dr. Felipe, Dr. Orourke within one to two weeks . Dr. Yen, nephrology within one to two weeks. ADDITIONAL INSTRUCTIONS: If the patient experiences an increase in palpitations , not helped with home medication, or any chest pain or dizziness or any bleeding, the patient should call primary care physician and report to the emergency room. The patient has been discussed with attending doctor, Dr. Pierre. My preceptor for this patient encounter was Dr. Pierre . The preceptor was physically present in the building during the encounter and was fully available. As needed, all aspects of the patient interview, examination, medical decision making process, and medical care plan development were reviewed and approved by the preceptor. The preceptor is aware and concurs with the plan as stated in the body of this note and will attest to such by his/her cosignature. I have both independently examined this patient as well as reviewed the note. I have discussed in detail with the resident the findings and plan of treatment as documented in the residents note. I will continue to follow the patient and offer further guidance to the patients care as necessary during this hospital stay. Lucie GAXIOLA
--- NOTE | 2016-10-29 06:17 | IPN ---
DATE OF VISIT: 10/27/2016 SUBJECTIVE: The patient was seen and examined at the bedside today, she feels much better. She denies any active complaints. Renal function is stable. REVIEW OF SYSTEMS: The patient denies any fever, chills, rigors, headache, nausea, vomiting, chest pain, shortness of breath, pain in the abdomen, constipation or diarrhea. The rest of the review of systems is negative. OBJECTIVE: VITAL SIGNS: Temperature 96.8 degrees Fahrenheit , blood pressure 154/84, pulse 63, respiratory rate 18, saturating 97% on room air. Intake and output of urine records as 1 liter yesterday, 500 mL so far today since overnight. GENERAL: The patient is awake, alert, oriented times three, sitting in the bed in no apparent distress. HEAD/NECK: Extraocular muscles intact, pupils equal, round, reactive to light. Neck is supple. There is no jugular venous distention (JVD). CARDIOVASCULAR: S1, S2, regular rate. No murmurs, rubs, gallops. RESPIRATORY: Chest is clear to auscultation bilaterally. Bilateral equal air entry. No rales or rhonchi. ABDOMEN: Soft, positive bowel sounds, nontender. No ascites, no organomegaly. EXTREMITIES: No clubbing or cyanosis. Pulses are 2+. 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 Power is 5/5 in all extremities. LAB REVIEW: CBC showed hemoglobin 10.6. BMP shows sodium 141, potassium 3.8, chloride 101, bicarbonate 30, BUN 58, creatinine 2.01. Calcium 8.3, magnesium is 2.3. CURRENT MEDICATIONS: There is no change in her medications as compared with yesterday; however, she has been started on Lasix 40 mg by mouth daily. 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 Nephrology service is following the patient for management of acute kidney disease superimposed on chronic kidney disease. PLAN: 1. Acute kidney disease superimposed on chronic kidney disease. The patient's creatinine has been stable at 2. Most likely her baseline is between 1.7 to 2; however, kidney function is stable. Volume status is well optimized. There is no electrolyte abnormality. The patient does not need to stay in the hospital for the kidney dysfunction. She can followup as an outpatient with the nephrology service. 2. Decompensated heart failure. The patient's volume status is well optimized. Her diuretics were held for four days. She has been restarted on a lower dose of Lasix 40 mg by mouth daily. She can go home and followup as an outpatient. 3. Atrial fibrillation. Her heart rate is well controlled at this time. Continue Eliquis and amiodarone as per cardiology service. 4. Discharge planning. It is okay to discharge the patient from the nephrology standpoint. She can followup with the nephrology service as an outpatient and diuretic dose can be adjusted. Plan of care was discussed with the medical surgical tech and the primary team.
== END 2016-10-27 13:00 | disposition home health service (06) | DRG 291 ==
LOC: M ED 14:05 → M ED INP 17:24 → M PCU 20:13
PROVIDERS: ADMIT Internal Medicine; ATTEND Hospitalist
DX: I13.0 Hypertensive heart and chronic kidney disease with heart failure and stage 1 through stage 4 chronic kidney disease, or unspecified chronic kidney disease (principal); J15.9 Unspecified bacterial pneumonia; I50.33 Acute on chronic diastolic (congestive) heart failure; J44.1 Chronic obstructive pulmonary disease with (acute) exacerbation; N17.9 Acute kidney failure, unspecified; N18.4 Chronic kidney disease, stage 4 (severe); E11.65 Type 2 diabetes mellitus with hyperglycemia; E78.5 Hyperlipidemia, unspecified; I16.0 Hypertensive urgency; Z66 Do not resuscitate; I27.2 Other secondary pulmonary hypertension; D64.9 Anemia, unspecified; E87.5 Hyperkalemia; I48.0 Paroxysmal atrial fibrillation; Z79.82 Long term (current) use of aspirin; Z79.84 Long term (current) use of oral hypoglycemic drugs; Z79.899 Other long term (current) drug therapy